=== PATIENT | female | born 1995 | race Caucasian/White ===

== ENCOUNTER 2025-08-24 16:44 | Inpatient (IN) ==
[2025-08-24 17:51] LABS: Appearance Urine Clear (Clear); Bacteria Urine Automated 1+ (None Seen); Cast Urine Automated 0-2 /lpf (0-2); Glucose Urine UA 2+ (Negative)
--- NOTE | 2025-08-24 18:11 | Emergency Department Note ---
History of Present Illness General Chief complaint: Mental Health Evaluation Stated complaint: [facility] Time Seen by Provider: 08/24/25 16:52 Source: patient Mode of arrival: ambulatory Limitations: no limitations History of Present Illness Patient is a 29-year-old female who was sent over at the request of her psychiatrist for suicidal ideations. She has recently had thoughts of SI with plans to overdose. She denies intentional overdose today. She did cut herself with a ammonia box operator to her left arm today as well. Lacerations are superficial and bleeding has stopped prior to arrival. She denies any prior SI attempt in the past. No reported HI. No auditory visual hallucinations. Denies any drug or alcohol use in the past 24 hours. No other medical complaints at this time. Home Medications Medication Instructions Recorded Confirmed Type Basaglar KwikPen U-100 Insulin 19 unit SC HS 08/24/25 08/24/25 History Dexilant 60 mg PO DAILY 08/24/25 08/24/25 History Dupixent Pen 300 mg SC WK 08/24/25 08/24/25 History Effexor 100 mg PO DAILY 08/24/25 08/24/25 History Remeron 15 mg PO HS 08/24/25 08/24/25 History Vitamin D3 3,000 units PO DAILY 08/24/25 08/24/25 History albuterol 90 mcg/actuation aerosol 90 mcg inhalation DIRECTED 08/24/25 08/24/25 History inhaler cariprazine 3 mg capsule (Vraylar) 3 mg PO DAILY 08/24/25 08/24/25 History clonazepam 1 mg tablet 1 mg PO BID 08/24/25 08/24/25 History ferrous fumarate 55 mg (18 mg 45 mg PO HS 08/24/25 08/24/25 History iron) tablet,extended release montelukast 10 mg tablet 10 mg PO HS 08/24/25 08/24/25 History (Singulair) ondansetron HCl 8 mg tablet 8 mg PO Q8H PRN nausea 08/24/25 08/24/25 History oxybutynin chloride 5 mg 5 mg PO DAILY 08/24/25 08/24/25 History tablet,extended release 24 hr prochlorperazine maleate 10 mg 10 mg PO Q8H PRN Nausea 08/24/25 08/24/25 History tablet (Compazine) Past Med/Surg History Problem List (Updated 08/24/25 @ 19:30 by Karri Mckeon MD) Suicidal ideations (Acute) Social History Smoking Status: Current every day smoker Tobacco Type: E-cigarettes / Vaping Preferred Language: Slovak Feels Safe at Home: Yes Gender Identity: Female Review of Systems Review of systems negative outside of positive findings mentioned in HPI. Physical Exam Vital Signs Vital Signs - 24 hr 08/24/25 16:47 Temperature 36.6 C Temperature Source Skin Pulse Rate 108 H Respiratory Rate 20 Blood Pressure 136/85 Blood Pressure Mean 102 Pulse Oximetry 97 Oxygen Delivery Method Room Air Sepsis Recent Fever Within 48 Hours No Sepsis New/Unexplained Change in Mental Status N/A Sepsis Action Taken by Nursing No Action Required See below Constitutional WD/WN, vitals as above Eyes PERRL, conjunctivae normal, anicteric sclerae ENMT external ear and nose normal, oropharynx normal Respiratory normal respiratory effort, lungs clear to auscultation Cardiovascular RRR, no murmur, no edema Gastrointestinal (Abdomen) normal bowel sounds, soft, nontender, no hepatosplenomegaly Psychiatric Orientation: alert and oriented x 3 Eye Contact: + fair eye contact Speech: speech normal rate, rhythm, volume Affect: + depressed affect Mood: + depressed mood Thought Process: linear, logical thought process Homicidal Thoughts: denies suicidal thoughts Hallucinations: no auditory hallucinations and no visual hallucinations Insight: good insight Judgment: good judgement Medical Decision Making Differential Diagnosis DDx includes but not limited to: MDD, bipolar disorder, dysthymia, PTSD, severe FAINA, schizophrenia, schizoaffective disorder, BPD, electrolyte abnormality, hypothyroidism Laboratory Data 08/24/25 17:25 08/24/25 17:25 Lab Results 08/24/25 08/24/25 08/24/25 Range/Units 17: 17:30 Unknown WBC 13.93 H (4.8-10.8) K/ul RBC 5.43 H (4.20-5.40) M/uL Hgb 15.2 (12.0-16.0) g/dL Hct 43.4 (37.0-47.0) % MCV 79.9 L (80.0-100.0) fL MCH 28.0 (25.0-34.0) pg MCHC 35.0 (32.0-36.0) g/dL RDW Std Deviation 36.5 (36.4-46.3) fL RDW Coeff of David 13.0 (11.5-14.5) % Plt Count 370 (130-400) K/uL MPV 9.5 (9.4-12.4) fL Immature Gran % (Auto) 0.6 % Neut % (Auto) 65.4 % Lymph % (Auto) 25.3 % Moca % (Auto) 4.6 % Eos % (Auto) 3.6 % Baso % (Auto) 0.5 % Neut # (Auto) 9.11 H (1.40-6.50) K/uL Lymph # (Auto) 3.53 H (1.20-3.40) K/uL Moca # (Auto) 0.64 H (0.11-0.59) K/uL Eos # (Auto) 0.50 (0.00-0.50) K/uL Baso # (Auto) 0.07 (0.00-0.20) K/uL Immature Gran # (Auto) 0.08 (0.01-0.20) K/uL Sodium 136 (136-145) mmol/L Potassium 3.5 (3.5-5.1) mmol/L Chloride 103 (98-107) mmol/L Carbon Dioxide 22 (21-32) mmol/L Anion Gap 11 (3-11) BUN 9 (6-23) mg/dl Creatinine 0.50 L (0.6-1.2) mg/dl Est Cr Clr Drug Dosing 167.7 ml/min eGFR 130.12 BUN/Creatinine Ratio 18.0 (10-20) Glucose 225 H (70-99(Fasting)) mg/dl Calcium 9.3 (8.6-10.3) mg/dl Total Bilirubin 0.7 (0.2-1.0) mg/dl AST 25 (13-39) U/L ALT 20 (7-52) U/L Alkaline Phosphatase 170 H (34-104) U/L Total Protein 7.4 (6.0-8.3) gm/dl Albumin 4.5 (3.4-5.0) gm/dl Globulin 2.9 (2.5-4.0) gm/dl Albumin/Globulin Ratio 1.6 (0.9-2) TSH 1.807 (0.300-4.500) uIu/ml HCG, Qual Negative (Negative) Urine Color Yellow Urine Appearance Clear (Clear) Urine pH 6.5 (4.5-7.5) Ur Specific [place] 1.010 (1.000-1.030) Urine Protein Negative (Negative) Urine Glucose (UA) 2+ H (Negative) Urine Ketones Trace H (Negative) Urine Blood 3+ H (Negative) Urine Nitrite Negative (Negative) Urine Bilirubin Negative (Negative) Urine Urobilinogen Negative (Negative) Ur Leukocyte Esterase Trace H (Negative) Urine WBC (Auto) 6-10 H (0-5) /hpf Urine RBC (Auto) 6-10 H (0-2) /hpf U Hyaline Cast (Auto) 0-2 (0-2) /lpf U Epithel Cells (Auto) 3-5 H (0-2) /hpf Urine Bacteria (Auto) 1+ H (None Seen) Urine Mucus Present A (None Prsent) Urine Yeast Present A (None Prsent) Urine Comment Salicylates < 3.0 L (3.0-30) mg/dl Urine Opiates Screen Neg (Neg) Ur Methadone, Qual Neg (Neg) Urine Fentanyl Screen Neg (Neg) Acetaminophen < 3 L (10-30) ug/ml Urine Barbiturates Neg (Neg) Ur Phencyclidine (PCP) Neg (Neg) U Amphetamin/Meth Scrn Neg (Neg) MDMA (Ecstasy) Screen Neg (Neg) U Benzodiazepines Scrn Neg (Neg) Ur Cocaine Metabolite Neg (Neg) U Marijuana (THC) Screen Neg (Neg) Ethyl Alcohol mg/dL < 10.0 (<10.0) mg/dl SARS-CoV-2, RNA, NAAT NEGATIVE (NEGATIVE) MDM Narrative Patient is a 29-year-old female presents for suicidal ideations with plan for overdose. Hemodynamically stable on arrival. She is cooperative and appropriate on my examination. No active psychosis or intoxication noted. Patient is willing to sign in voluntarily under a 201 for inpatient psychiatric management. I reviewed her lab work. Mild leukocytosis noted. No fever or obvious source of infection. No indication for antibiotics at this time. No signs of sepsis or metabolic abnormality. TSH within normal limits. Mild hyperglycemia without evidence of DKA or HHS. I did review her urinalysis. She does have 1+ bacteria with 6-10 white blood cells. No clinical signs or symptoms of UTI. She does report she is on her menstrual cycle which is evident by red blood cells in her urine. She also has a small amount of yeast noted on her urinalysis but denies any symptoms of candidiasis. Will hold on any treatment at this time. Patient was accepted by [facility] here today and it is medically clear for psychiatric admission. Impression & Plan Suicidal ideations Discharge Plan Visit Data Chief Complaint: Mental Health Evaluation Stated Complaint: [facility] ED Provider: Karri Mckeon Discharge Problem: Suicidal ideations Patient Disposition: Admitted As Inpatient Condition: Good Forms Stand Alone Forms: My [facility], Suicide Prevention Resources Prescriptions Prescriptions: No Action clonazepam 1 mg Tablet 1 mg PO BID oxybutynin chloride 5 mg Tablet Extended Release 24hr 5 mg PO DAILY montelukast [Singulair] 10 mg Tablet 10 mg PO HS Vraylar 3 mg Capsule 3 mg PO DAILY Basaglar KwikPen U-100 Insulin 19 unit SC HS Dexilant 60 mg PO DAILY Dupixent Pen 300 mg SC WK Rx Instructions: Q 2 weeks Effexor 100 mg PO DAILY Remeron 15 mg PO HS Vitamin D3 3,000 units PO DAILY ferrous fumarate 55 mg (18 mg iron) Tablet Extended Release 45 mg PO HS Ventolin 90 mcg/actuation Aerosol 90 mcg INHALATION DIRECTED Rx Instructions: Q 4 hours 2 puffs prochlorperazine maleate [Compazine] 10 mg Tablet 10 mg PO Q8H PRN (Reason: Nausea) ondansetron HCl [Zofran] 8 mg Tablet 8 mg PO Q8H PRN (Reason: nausea) Referrals Referrals: Carmen Martinez [Primary Care Provider] -
[2025-08-24 18:15] LABS: Amphetamines+Metham, Urine Neg (Neg); MDMA (Ecstacy), Urine Neg (Neg); Marijuana, Urine Neg (Neg)
[2025-08-24 18:40] LABS: Hematocrit (blood only) 43.4 % (37.0-47.0); Hemoglobin 15.2 g/dL (12.0-16.0); Immature Granulocytes # (auto) 0.08 K/uL (0.01-0.20); Immature Granulocytes % (auto) 0.6 %; Mean Corpuscular Hemoglobin 28.0 pg (25.0-34.0); Mean Corpuscular Volume 79.9 fL (80.0-100.0); Platelet Count 370 K/uL (130-400); RDW Standard Deviation 36.5 fL (36.4-46.3); Red Blood Count 5.43 M/uL (4.20-5.40); White Blood Count 13.93 K/ul (4.8-10.8)
[2025-08-24 18:54] LABS: Acetaminophen < 3 ug/ml (10-30); Salicylate < 3.0 mg/dl (3.0-30)
[2025-08-24 18:59] LABS: Alanine Aminotransferase 20.0 U/L (7-52); Albumin Globulin Ratio 1.6 (0.9-2); Albumin Level 4.5 gm/dl (3.4-5.0); Alkaline Phosphatase 170.0 U/L (34-104); Anion Gap 11.0 (3-11); Bilirubin,Total 0.7 mg/dl (0.2-1.0); Blood Urea Nitrogen 9.0 mg/dl (6-23); Calcium 9.3 mg/dl (8.6-10.3); Carbon Dioxide 22.0 mmol/L (21-32); Chloride 103.0 mmol/L (98-107); Creatinine Clr Calc Pharmacy 167.7 ml/min; Globulin 2.9 gm/dl (2.5-4.0); Glucose 225.0 mg/dl (70-99(Fasting)); Potassium 3.5 mmol/L (3.5-5.1); Sodium 136.0 mmol/L (136-145); Total Protein 7.4 gm/dl (6.0-8.3)
[2025-08-24 19:07] LABS: Pregnancy Test, Serum Negative (Negative)
[2025-08-24 19:13] LABS: Thyroid Stimulating Hormone 1.807 uIu/ml (0.300-4.500)
[2025-08-24] MEDS ORDERED: SODIUM CHLORIDE 0.65% NA SOLN 45 ML (OCEAN) PRN (20:49)
[2025-08-24] MEDS ORDERED: ALUMINUM/MAGNESIUM SUSP 30 ML UDC PO PRN (20:49)
[2025-08-24] MEDS ORDERED: BISMUTH SUBSALICYLATE 262 MG CHEW PO PRN (20:49)
[2025-08-24] MEDS ORDERED: MAGNESIUM HYDROXIDE SUSP 30 ML UDC PO PRN (20:49)
[2025-08-24] MEDS ORDERED: clonazePAM 1 MG TAB PO PRN (20:51)
[2025-08-24] MEDS ORDERED: GLUCOSE 40% GEL 15 GM TUBE PO PRN (21:15)
[2025-08-24] MEDS ORDERED: GLUCAGON FOR INJ 1 MG VIAL SQ PRN (21:15)
[2025-08-24] MEDS ORDERED: GLUCOSE 10 TAB/TUBE PO PRN (21:15)
[2025-08-24] MEDS ORDERED: DEXTROSE 50% 50 ML SYRINGE IV PRN (21:15)
[2025-08-24] MEDS ORDERED: CARBOHYDRATES FOR HYPOGLYCEMIA PO PRN (21:15)
[2025-08-24] MEDS ORDERED: NICOTINE POLACRILEX 2 MG GUM MT PRN (21:37)
[2025-08-24] MEDS ORDERED: ALBUTEROL HFA 8 GM INHALER INH PRN (21:41)
[2025-08-24] MEDS: MIRTAZAPINE TAB 15 MG TAB PO SCH (21:44)
[2025-08-24] MEDS: LANTUS PER UNIT CHARGE SQ SCH (21:44)
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
[2025-08-25] MEDS: NICOTINE 14 MG/24 HR PATCH TD SCH (09:44)
[2025-08-25] MEDS: REMOVE NICODERM PATCH SCH ×2 (09:45→21:40)
[2025-08-25] MEDS: CETIRIZINE HCL 10 MG TABLET PO SCH (11:56)
[2025-08-25] MEDS: OXYBUTYNIN CHLORIDE XL 5 MG TABCR PO SCH (11:56)
[2025-08-25] MEDS: CHOLECALCIFEROL 25 MCG (1000 UNITS) TAB PO SCH (11:56)
[2025-08-25] MEDS: VENLAFAXINE HCL XR 150 MG CAPXR PO SCH (12:20)
[2025-08-25] MEDS: LURASIDONE HCL 20 MG TAB PO SCH (17:34)
[2025-08-25] MEDS: MONTELUKAST SODIUM 10 MG TABLET PO SCH (21:37)
[2025-08-25] MEDS ORDERED: NON-FORMULARY MEDICATION (Ferrous Fumarate 55 mg (18 mg iron) Tablet Extended Release) PO SCH (22:00)
[2025-08-26 08:11] LABS: Hemoglobin A1C 8.7 % (4.5-5.6)
[2025-08-26 08:20] LABS: Cholesterol 185.0 mg/dl (0-200); HDL Cholesterol 34.0 mg/dl; Triglycerides 277.0 mg/dl (0-150)
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
[2025-08-27] MEDS: CHOLECALCIFEROL 25 MCG (1000 UNITS) TAB PO SCH (08:51)
[2025-08-27] MEDS: clonazePAM 1 MG TAB PO PRN (09:13)
[2025-08-27] MEDS: PROPRANOLOL HCL 10 MG TAB PO SCH (14:24)
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
[2025-08-27] MEDS: LANTUS PER UNIT CHARGE SQ SCH (21:46)
--- NOTE | 2025-08-27 23:20 | Pharmacy Report ---
Pharmacy Glycemic Short Note 2 - Date of Service August 27, 2025 - Glycemic Short BSG Results (Last 24 hours): 08/27/25 08/27/25 08/27/25 08:32 12:34 17:02 POC Glucose 171 H 232 H 160 H 08/27/25 20:14 POC Glucose 290 H OUTPATIENT ANTIDIABETIC REGIMEN: * Lantus 19 units HS * HbA1c 8.7% (08/26/25) ASSESSMENT: * Jennifer is a 29 year old female admitted with suicidal ideations and a history of insulin dependent diabetes mellitus (unclear if type 1 or type 2). Pharmacy has been consulted for glycemic management while inpatient. * All BSGs above goal in last 24 hours. Basal insulin increased this evening per MD and CDE recommendations, will continue and add correctional only NovoLog at this time to better assess true basal need. PLAN FOR INPATIENT GLYCEMIC CONTROL: * Hold outpatient oral diabetes medications * Basal insulin * Lantus 21 units SQ HS * Bolus insulin * NovoLog per scale ACHS or Q6hrs while NPO * Goal Range: Low 120 mg/dL - High 160 mg/dL * Correction Factor: 25 mg/dL/unit * Nutritional / Prandial insulin per carb ratio of 1 unit per NONE grams CHO consumed
[2025-08-28] MEDS: INSULIN ASPART PER UNIT CHARGE SC SCH (09:05)
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
[2025-08-28] MEDS: LANTUS PER UNIT CHARGE SQ SCH (21:37)
[2025-08-28] MEDS ORDERED: PHARMACY GLYCEMIC MGMT CONSULT PRN (21:40)
[2025-08-29] MEDS: ACETAMINOPHEN 325 MG TAB PO PRN (08:38)
--- NOTE | 2025-08-29 12:46 | Pharmacy Report ---
Pharmacy Glycemic Short Note 2 - Date of Service August 29, 2025 - Glycemic Short BSG Results (Last 24 hours): 08/28/25 08/28/25 08/29/25 17:08 21:12 08:34 POC Glucose 122 H 132 H 154 H 08/29/25 12:32 POC Glucose 179 H OUTPATIENT ANTIDIABETIC REGIMEN: * Lantus 19 units HS HbA1c: 8.7% (08/26/25) ASSESSMENT: 08/29/25: * Blood sugars have been reasonably controlled with some mild elevations >180 mg/dL * Do not anticipate any major changes to current glycemic regimen 08/27/25: * Jennifer is a 29 year old female admitted with suicidal ideations and a history of insulin dependent diabetes mellitus (type 2 DM). Pharmacy has been consulted for glycemic management while inpatient. * All BSGs above goal in last 24 hours. Basal insulin increased this evening per MD and CDE recommendations, will continue and add correctional only NovoLog at this time to better assess true basal need. PLAN FOR INPATIENT GLYCEMIC CONTROL: * Basal insulin * Lantus 15-18-21 units SC HS (see EHR for details) * Bolus insulin * NovoLog per scale ACHS or Q6hrs while NPO * Goal Range: Low 120 mg/dL - High 160 mg/dL * Correction Factor: 30 mg/dL/unit * Nutritional / Prandial insulin per carb ratio of 1 unit per 8 grams CHO consumed
--- NOTE | 2025-08-29 13:08 | Psychiatric Progress Note ---
Date of Service August 29, 2025 Impression / Recommendations Impression SABRINA GUZMAN is a 29-year-old woman who currently lives in [place] alone with her cats, has a history of depression, anxiety and PTSD, and was admitted on 08/24/25 19:40 on a 201 voluntary commitment for SI with plan to overdose on her medications. Diagnostically consistent with major depressive disorder, post traumatic stress disorder, generalized anxiety disorder with panic attacks and insomnia. No history of hypomania but family history of bipolar disorder and poor response to antidepressant monotherapy in the past though has never had full trial of effective dose of an SNRI. A: Patient is tolerating the medications well with improved sleep. Continues to have anxious ruminations and negative self-talk. Concern for longstanding poor self-esteem and emotional guilt. Today we discussed common automatic negative thoughts she experiences, anxiety triggers. Practiced mindfulness meditation with the patient. Overall, I spent a total of 40 minutes with this case including review of chart records, nursing report, review of lab work, direct evaluation of the patient at bedside, counseling the patient, multidisciplinary team meeting, orders, and documentation in the electronic health record. (1) Suicidal ideations: (2) Insomnia: (3) MDD (major depressive disorder), recurrent episode, severe: (4) Post traumatic stress disorder (PTSD): (5) Generalized anxiety disorder with panic attacks: Plan 08/29/2025: Continue medications and treatment plan 08/28/2025: Continue medications and treatment plan 08/27/2025: Start propranolol 10 mg 3 times daily 08/26/2025: Increase vitamin D to 125 mcg daily. 08/25/2025: The patient was admitted to the [facility] ([facility] mental health unit) on q15 min checks (behavioral with suicide precautions) for safety. The patient will participate in group, recreational, and milieu therapies and will be offered additional individual and family sessions as clinically appropriate. -Medications: * Change from venlafaxine 100mg daily to venlafaxine ER 150mg daily * Start Latuda 20mg daily with dinner * Start clonidine 0.1mg HS * Continue mirtazapine 15mg HS * Discontinue prazosin * Discontinue Vraylar -Symptom questionnaires provided -Labwork for tomorrow AM: * Fasting lipid panel * HbA1c * Vit D Inventory Assets Strengths: supportive relationships, willing to get treatment Needs: safety and stabilization, medication adjustment, additional coping skills, increased outpatient services Suicide Risk Level Suicide Risk Level: High-Moderate (q15 min suicide checks) (Si with plan and dep ression but feels safe in the hospital and feels able to ask for support ) Suicide Risk Level Comments: Risk Factors Assessment Male: No : Yes Do You Have Access To A Gun?: No Health Problems: Yes (asthma) Mental Health Diagnoses: Yes Substance Use Disorders: No Previous Attempt: No Family History of Suicide: Yes Previous Psychiatric Hospitalization: Yes Hopelessness: Yes Protective Factors Assessment Employed: Yes Stable Relationships: Yes Supportive Family: Yes Good Rapport with Provider: Yes Interval History Identifying Information SABRINA GUZMAN is a 29-year-old woman who currently lives in [place] alone with her cats, has a history of depression, anxiety and PTSD, and was admitted on 08/24/25 19:40 on a 201 voluntary commitment for SI with plan to overdose on her medications. Chief Complaint Anxiety, hypervigilance Review of Systems Sleep Information Total Hours of Sleep: 8 Meal Information Percent Meal Consumed - Breakfast: 80 Percent Meal Consumed - Lunch: 75 Percent Meal Consumed - Dinner: 75 Subjective Subjective Patient was seen & assessed and interval progress reviewed with treatment team nursing and social work Patient continues to have anxious ruminations. Attending groups. Engaging in self-care. Reports sleeping well. Having a headache and has history of migraines. We discussed automatic negative thoughts and she reports often personalizing situations and emotional reasoning. She recounts a time at work where her mother was upset about something else but she immediately felt responsible for her being upset. Often times has transient feelings and bel ieves there is a factual basis. Reports feeling guilty for setting boundaries as she often felt that it is not her place to say no to her family. Recounts memory from the past where her father promised to pick her up from different activities and never did and eventually she got frustrated and said no; this led to her father not talking to her for months and she feels guilty. Often times her mother would berate her with questions when she did not feel ready to talk about what was bothering her and her mother would often personalize issues the patient was having. We identified recent anxiety triggers including being in a dormitory style unit, speaking to her father, and her mother visiting. Reports being on Latuda 20 mg through samples from her past psychiatrist and it was effective; went up to 40 mg for a few weeks. Physical Exam Mental Examination Appearance: Unkempt Eye Contact: Maintains Eye Contact Motor Behavior: Unremarkable Speech: Normal and Soft Mood: Calm and Sad Affect: Flat Thought Process: Intact Thought Content: Racing Hallucinations: None Insight: Good Judgement: Good Vital Signs (Past 24 Hours) Last Vital Signs Temp 36.2 C L 08/29/25 06:22 Pulse 79 08/29/25 08:37 Resp 18 08/29/25 08:37 BP 109/77 08/29/25 08:37 Pulse Ox 96 08/28/25 06:00 O2 Del Method Room Air 08/28/25 06:00 Results & Data ([facility]) Laboratory Results Laboratory Results - last 24 hr 08/28/25 08/28/25 08/29/25 17:08 21:12 08:34 POC Glucose 122 H 132 H 154 H 08/29/25 12:32 POC Glucose 179 H Current Inpatient Medications Current Inpatient Medications: Current Inpatient Medications Acetaminophen (Acetaminophen 325 Mg Tab) 650 mg PO Q4H PRN PRN Reason: Headache or Minor Fever Stop: 09/23/25 20:48 Last Admin: 08/29/25 08:38 Dose: 650 mg Al Hydrox/Mg Hydrox/Simethicone (Aluminum/Magnesium Susp 30 Ml Udc) 30 ml PO Q4H PRN PRN Reason: GI Upset Stop: 09/23/25 20:48 Albuterol (Albuterol Hfa 8 Gm Inhaler) 2 puffs INH Q6 PRN PRN Reason: asthma Stop: 09/23/25 21:40 Bismuth Subsalicylate (Bismuth Subsalicylate 262 Mg Chew) 2 tab PO Q30M PRN PRN Reason: Loose Stool/Diarrhea Stop: 09/23/25 20:48 Cetirizine HCl (Cetirizine Hcl 10 Mg Tablet) 10 mg PO BID [facility] Stop: 09/24/25 11:29 Last Admin: 08/29/25 08:41 Dose: 10 mg Clonazepam (Clonazepam 1 Mg Tab) 1 mg PO BID PRN PRN Reason: panic attacks Stop: 09/24/25 20:59 Last Admin: 08/28/25 17:11 Dose: 1 mg Clonidine HCl (Clonidine Hcl 0.1 Mg Tab) 0.1 mg PO HS [facility] Stop: 09/24/25 21:59 Last Admin: 08/28/25 21:25 Dose: 0.1 mg Dextrose (Dextrose 50% 50 Ml Syringe) 25 - 50 ml IV UD PRN; Protocol PRN Reason: Hypoglycemia Protocol Stop: 09/23/25 21:14 Glucagon (Glucagon For Inj 1 Mg Vial) 1 mg SQ UD PRN; Protocol PRN Reason: Hypoglycemia Protocol Stop: 09/23/25 21:14 Glucose (Glucose 40% Gel 15 Gm Tube) 15 - 30 gm PO UD PRN; Protocol PRN Reason: Hypoglycemia Protocol Stop: 09/23/25 21:14 Glucose (Glucose 10 Tab/Tube) 4 - 8 tab PO UD PRN; Protocol PRN Reason: Hypoglycemia Protocol Stop: 09/23/25 21:14 Hydroxyzine HCl (Hydroxyzine Hcl 25 Mg Tab) 50 mg PO HSZ PRN PRN Reason: Insomnia Stop: 09/23/25 20:48 Hydroxyzine HCl (Hydroxyzine Hcl 25 Mg Tab) 25 mg PO Q4H PRN PRN Reason: Anxiety Stop: 09/23/25 20:48 Insulin Aspart (Insulin Aspart Per Unit Charge) 0 units SC ACHS [facility] Stop: 09/27/25 07:59 Last Admin: 08/29/25 13:01 Dose: 5 units Insulin Glargine (Lantus Per Unit Charge) 0 units SQ HS CORINNE; Protocol Stop: 09/26/25 21:44 Last Admin: 08/28/25 21:37 Dose: 15 units Lurasidone HCl (Lurasidone Hcl 20 Mg Tab) 20 mg PO DAILYBD [facility] Stop: 09/24/25 17:14 Last Admin: 08/28/25 17:09 Dose: 20 mg Magnesium Hydroxide (Magnesium Hydroxide Susp 30 Ml Udc) 30 ml PO DAILY PRN PRN Reason: Constipation Stop: 09/23/25 20:48 Mirtazapine (Mirtazapine Tab 15 Mg Tab) 15 mg PO HS [facility] Stop: 09/23/25 21:59 Last Admin: 08/28/25 21:25 Dose: 15 mg Miscellaneous (Carbohydrates For Hypoglycemia ) 15 - 30 gm PO UD PRN PRN Reason: Hypoglycemia Treatment Stop: 09/23/25 21:14 Miscellaneous (Remove Nicoderm Patch) 1 each N/A DAILY@2100 [facility] Stop: 09/24/25 20:59 Last Admin: 08/28/25 21:43 Dose: 1 each Miscellaneous Information (Pharmacy Glycemic Mgmt Consult) 1 each N/A UD PRN; Protocol PRN Reason: Consult Stop: 09/27/25 21:39 Montelukast Sodium (Montelukast Sodium 10 Mg Tablet) 10 mg PO HS [facility] Stop: 09/24/25 21:59 Last Admin: 08/28/25 21:25 Dose: 10 mg Nicotine (Nicotine 14 Mg/24 Hr Patch) 1 patch TD QAM [facility] Stop: 09/24/25 08:59 Last Admin: 08/29/25 08:50 Dose: 1 patch Nicotine Polacrilex (Nicotine Polacrilex 2 Mg Gum) 2 piece MT PRN PRN PRN Reason: Nicotine Withdrawal Symptoms Stop: 09/23/25 21:36 Ondansetron HCl (Ondansetron 4 Mg Od Tab) 8 mg PO Q8H PRN PRN Reason: nausea Stop: 09/24/25 11:37 Oxybutynin Chloride (Oxybutynin Chloride Xl 5 Mg Tabcr) 5 mg PO DAILY [facility] Stop: 09/24/25 11:29 Last Admin: 08/29/25 08:43 Dose: 5 mg Pantoprazole Sodium (Pantoprazole 40 Mg Tab) 40 mg PO DAILY [facility] Stop: 09/24/25 11:44 Last Admin: 08/29/25 08:43 Dose: 40 mg Propranolol HCl (Propranolol Hcl 10 Mg Tab) 10 mg PO TID [facility] Stop: 09/26/25 13:59 Last Admin: 08/29/25 08:43 Dose: 10 mg Sodium Chloride (Sodium Chloride 0.65% Na Soln 45 Ml ([place])) 1 - 2 sprays NA PRN PRN PRN Reason: Nasal Dryness/Congestion Stop: 09/23/25 20:48 Venlafaxine HCl (Venlafaxine Hcl Xr 150 Mg Capxr) 150 mg PO QAM [facility] Stop: 09/24/25 11:59 Last Admin: 08/29/25 08:44 Dose: 150 mg Vitamin D (Cholecalciferol 25 Mcg (1000 Units) Tab) 125 mcg PO DAILY [facility] Stop: 09/26/25 08:59 Last Admin: 08/29/25 08:41 Dose: 125 mcg Mental Health & Subst Abuse Tx Psychiatrist Name of Psychiatrist: LEFTY Psychiatrist's Date Of Appointment With Psychiatric Provider: 08/31/25 Time of Appointment with Psychiatrist: markell Psychiatric Appointment Comment: In person appt Therapist Name of Therapist: Cecelia at [facility] Therapist's Date of Therapist Appointment: 09/02/25 Time of Therapist Appointment: Axel Lard Mixer Name of Lard Mixer: verónica Post Discharge Appointments Primary Care Physician Name Of Family Doctor/PCP: Carmen Martinez - [facility] Primary Care Provider Appointment Comment: Follow up as needed Contact Information Discharge Discharge Address: [address] [place] [address] [address] , [place] [id number]
[2025-08-29] MEDS: IBUPROFEN 200 MG TAB PO PRN (14:10)
[2025-08-29] MEDS: ONDANSETRON 4 MG OD TAB PO PRN (19:06)
--- NOTE | 2025-08-30 12:45 | Psychiatric Progress Note ---
Date of Service August 30, 2025 Impression / Recommendations Impression SABRINA GUZMAN is a 29-year-old woman who currently lives in [place] alone with her cats, has a history of depression, anxiety and PTSD, and was admitted on 08/24/25 19:40 on a 201 voluntary commitment for SI with plan to overdose on her medications. Diagnostically consistent with major depressive disorder, post traumatic stress disorder, generalized anxiety disorder with panic attacks and insomnia. No history of hypomania but family history of bipolar disorder and poor response to antidepressant monotherapy in the past though has never had full trial of effective dose of an SNRI. A: Patient presents improvement in PTSD related anxiety and sleep maintenance. Reduced negative self talk. Blood glucose levels stabilizing. Tolerating psychotropics well. Today we discussed coping skills and identifying triggers. Appears more future oriented. Encouraged intensive outpatient program and interested. Overall, I spent a total of 30 minutes with this case including review of chart records, nursing report, review of lab work, direct evaluation of the patient at bedside, counseling the patient, multidisciplinary team meeting, orders, and documentation in the electronic health record. (1) Suicidal ideations: (2) Insomnia: (3) MDD (major depressive disorder), recurrent episode, severe: (4) Post traumatic stress disorder (PTSD): (5) Generalized anxiety disorder with panic attacks: Plan 08/30/2025: Continue medications and treatment plan 08/29/2025: Continue medications and treatment plan 08/28/2025: Continue medications and treatment plan 08/27/2025: Start propranolol 10 mg 3 times daily 08/26/2025: Increase vitamin D to 125 mcg daily. 08/25/2025: The patient was admitted to the [facility] ([facility] mental health unit) on q15 min checks (behavioral with suicide precautions) for safety. The patient will participate in group, recreational, and milieu therapies and will be offered additional individual and family sessions as clinically appropriate. -Medications: * Change from venlafaxine 100mg daily to venlafaxine ER 150mg daily * Start Latuda 20mg daily with dinner * Start clonidine 0.1mg HS * Continue mirtazapine 15mg HS * Discontinue prazosin * Discontinue Vraylar -Symptom questionnaires provided -Labwork for tomorrow AM: * Fasting lipid panel * HbA1c * Vit D Inventory Assets Strengths: supportive relationships, willing to get treatment Needs: safety and stabilization, medication adjustment, additional coping skills, increased outpatient services Suicide Risk Level Suicide Risk Level: High-Moderate (q15 min suicide checks) (Si with plan and depression but feels safe in the hospital and feels able to ask for support ) Suicide Risk Level Comments: Risk Factors Assessment Male: No : Yes Do You Have Access To A Gun?: No Health Problems: Yes (asthma) Mental Health Diagnoses: Yes Substance Use Disorders: No Previous Attempt: No Family History of Suicide: Yes Previous Psychiatric Hospitalization: Yes Hopelessness: Yes Protective Factors Assessment Employed: Yes Stable Relationships: Yes Supportive Family: Yes Good Rapport with Provider: Yes Interval History Identifying Information SABRINA GUZMAN is a 29-year-old woman who currently lives in [place] alone with her cats, has a history of depression, anxiety and PTSD, and was admitted on 08/24/25 19:40 on a 201 voluntary commitment for SI with plan to overdose on her medications. Chief Complaint Anxiety, nightmares Review of Systems Sleep Information Total Hours of Sleep: 6.5 Meal Information Percent Meal Consumed - Breakfast: 100 Percent Meal Consumed - Lunch: 75 Percent Meal Consumed - Dinner: 100 Subjective Subjective Patient was seen & assessed and interval progress reviewed with treatment team nursing and social work Overnight slept 6.5 hours. Father did not show up for the support meeting. Patient feels abandoned but says that this was expected. Reports having a few awakenings at night with distressing dreams that woke her up and "panic and sweats" however she was able to go back to sleep faster than before. Has been engaging in mindfulness meditation and feels calmer afterwards. Updated about health status and future recommendations for PCP. Reports physical symptoms of anxiety are controlled. Physical Exam Mental Examination Appearance: Unkempt Eye Contact: Maintains Eye Contact Motor Behavior: Unremarkable Speech: Normal and Soft Mood: Calm and Sad Affect: Constricted Thought Process: Intact Thought Content: Racing Hallucinations: None Insight: Good Judgement: Good Vital Signs (Past 24 Hours) Last Vital Signs Temp 37.0 C 08/30/25 06:27 Pulse 88 08/30/25 06:27 Resp 18 08/30/25 06:27 BP 110/76 08/30/25 06:27 Pulse Ox 98 08/30/25 06:27 O2 Del Method Room Air 08/30/25 06:27 Results & Data ([facility]) Laboratory Results Laboratory Results - last 24 hr 11/30/25 11/30/25 12/01/25 17:02 20:34 08:44 POC Glucose 128 H 163 H 137 H 08/30/25 12:34 POC Glucose 205 H Current Inpatient Medications Current Inpatient Medications: Current Inpatient Medications Acetaminophen (Acetaminophen 325 Mg Tab) 650 mg PO Q4H PRN PRN Reason: Headache or Minor Fever Stop: 09/23/25 20:48 Last Admin: 08/29/25 08:38 Dose: 650 mg Al Hydrox/Mg Hydrox/Simethicone (Aluminum/Magnesium Susp 30 Ml Udc) 30 ml PO Q4H PRN PRN Reason: GI Upset Stop: 09/23/25 20:48 Albuterol (Albuterol Hfa 8 Gm Inhaler) 2 puffs INH Q6 PRN PRN Reason: asthma Stop: 09/23/25 21:40 Bismuth Subsalicylate (Bismuth Subsalicylate 262 Mg Chew) 2 tab PO Q30M PRN PRN Reason: Loose Stool/Diarrhea Stop: 09/23/25 20:48 Cetirizine HCl (Cetirizine Hcl 10 Mg Tablet) 10 mg PO BID [facility]IN[facility] Stop: 09/24/25 11:29 Last Admin: 08/30/25 08:51 Dose: 10 mg Clonazepam (Clonazepam 1 Mg Tab) 1 mg PO BID PRN PRN Reason: panic attacks Stop: 09/24/25 20:59 Last Admin: 08/28/25 17:11 Dose: 1 mg Clonidine HCl (Clonidine Hcl 0.1 Mg Tab) 0.1 mg PO HS CORINNE Stop: 09/24/25 21:59 Last Admin: 08/29/25 22:07 Dose: 0.1 mg Dextrose (Dextrose 50% 50 Ml Syringe) 25 - 50 ml IV UD PRN; Protocol PRN Reason: Hypoglycemia Protocol Stop: 09/23/25 21:14 Glucagon (Glucagon For Inj 1 Mg Vial) 1 mg SQ UD PRN; Protocol PRN Reason: Hypoglycemia Protocol Stop: 09/23/25 21:14 Glucose (Glucose 40% Gel 15 Gm Tube) 15 - 30 gm PO UD PRN; Protocol PRN Reason: Hypoglycemia Protocol Stop: 09/23/25 21:14 Glucose (Glucose 10 Tab/Tube) 4 - 8 tab PO UD PRN; Protocol PRN Reason: Hypoglycemia Protocol Stop: 09/23/25 21:14 Hydroxyzine HCl (Hydroxyzine Hcl 25 Mg Tab) 50 mg PO HSZ PRN PRN Reason: Insomnia Stop: 09/23/25 20:48 Hydroxyzine HCl (Hydroxyzine Hcl 25 Mg Tab) 25 mg PO Q4H PRN PRN Reason: Anxiety Stop: 09/23/25 20:48 Ibuprofen (Ibuprofen 200 Mg Tab) 400 mg PO Q8H PRN PRN Reason: Migraine Headache Stop: 09/28/25 13:44 Last Admin: 08/29/25 14:10 Dose: 400 mg Insulin Aspart (Insulin Aspart Per Unit Charge) 0 units SC ACHS [facility] Stop: 09/27/25 07:59 Last Admin: 08/30/25 09:14 Dose: 6 units Insulin Glargine (Lantus Per Unit Charge) 19 units SQ HS [facility] Stop: 09/26/25 21:44 Lurasidone HCl (Lurasidone Hcl 20 Mg Tab) 20 mg PO DAILYBD [facility] Stop: 09/24/25 17:14 Last Admin: 08/29/25 17:04 Dose: 20 mg Magnesium Hydroxide (Magnesium Hydroxide Susp 30 Ml Udc) 30 ml PO DAILY PRN PRN Reason: Constipation Stop: 09/23/25 20:48 Mirtazapine (Mirtazapine Tab 15 Mg Tab) 15 mg PO HS [facility] Stop: 09/23/25 21:59 Last Admin: 08/29/25 22:07 Dose: 15 mg Miscellaneous (Carbohydrates For Hypoglycemia ) 15 - 30 gm PO UD PRN PRN Reason: Hypoglycemia Treatment Stop: 09/23/25 21:14 Miscellaneous (Remove Nicoderm Patch) 1 each N/A DAILY@2100 [facility] Stop: 09/24/25 20:59 Last Admin: 08/29/25 22:17 Dose: 1 each Miscellaneous Information (Pharmacy Glycemic Mgmt Consult) 1 each N/A UD PRN; Protocol PRN Reason: Consult Stop: 09/27/25 21:39 Montelukast Sodium (Montelukast Sodium 10 Mg Tablet) 10 mg PO HS [facility] Stop: 09/24/25 21:59 Last Admin: 08/29/25 22:08 Dose: 10 mg Nicotine (Nicotine 14 Mg/24 Hr Patch) 1 patch TD QAM [facility] Stop: 09/24/25 08:59 Last Admin: 08/30/25 08:51 Dose: 1 patch Nicotine Polacrilex (Nicotine Polacrilex 2 Mg Gum) 2 piece MT PRN PRN PRN Reason: Nicotine Withdrawal Symptoms Stop: 09/23/25 21:36 Ondansetron HCl (Ondansetron 4 Mg Od Tab) 8 mg PO Q8H PRN PRN Reason: nausea Stop: 09/24/25 11:37 Last Admin: 08/29/25 19:06 Dose: 8 mg Oxybutynin Chloride (Oxybutynin Chloride Xl 5 Mg Tabcr) 5 mg PO DAILY [facility] Stop: 09/24/25 11:29 Last Admin: 08/30/25 08:51 Dose: 5 mg Pantoprazole Sodium (Pantoprazole 40 Mg Tab) 40 mg PO DAILY [facility] Stop: 09/24/25 11:44 Last Admin: 08/30/25 08:51 Dose: 40 mg Propranolol HCl (Propranolol Hcl 10 Mg Tab) 10 mg PO TID [facility] Stop: 09/26/25 13:59 Last Admin: 08/30/25 08:51 Dose: 10 mg Sodium Chloride (Sodium Chloride 0.65% Na Soln 45 Ml ([place])) 1 - 2 sprays NA PRN PRN PRN Reason: Nasal Dryness/Congestion Stop: 09/23/25 20:48 Venlafaxine HCl (Venlafaxine Hcl Xr 150 Mg Capxr) 150 mg PO QAM [facility] Stop: 09/24/25 11:59 Last Admin: 08/30/25 08:51 Dose: 150 mg Vitamin D (Cholecalciferol 25 Mcg (1000 Units) Tab) 125 mcg PO DAILY [facility] Stop: 09/26/25 08:59 Last Admin: 08/30/25 08:50 Dose: 125 mcg Mental Health & Subst Abuse Tx Psychiatrist Name of Psychiatrist: LEFTY Psychiatrist's Date Of Appointment With Psychiatric Provider: 08/31/25 Time of Appointment with Psychiatrist: markell Psychiatric Appointment Comment: In person appt Therapist Name of Therapist: Cecelia douglas [facility] Therapist's Date of Therapist Appointment: 09/02/25 Time of Therapist Appointment: Noon Tip Length Checker Name of Tip Length Checker: na Post Discharge Appointments Primary Care Physician Name Of Family Doctor/PCP: Carmen Martinez - [facility] Primary Care Provider Appointment Comment: Follow up as needed Contact Information Discharge Discharge Address: [facility], [place] [address]
[2025-08-30] MEDS: LANTUS PER UNIT CHARGE SQ SCH (21:45)
--- NOTE | 2025-08-31 12:42 | Psychiatric Progress Note ---
Date of Service August 31, 2025 Impression / Recommendations Impression SABRINA GUZMAN is a 29-year-old woman who currently lives in [place] alone with her cats, has a history of depression, anxiety and PTSD, and was admitted on 08/24/25 19:40 on a 201 voluntary commitment for SI with plan to overdose on her medications. Diagnostically consistent with major depressive disorder, post traumatic stress disorder, generalized anxiety disorder with panic attacks and insomnia. No history of hypomania but family history of bipolar disorder and poor response to antidepressant monotherapy in the past though has never had full trial of effective dose of an SNRI. A: Patient's sleep is improved and appears less anxious with a brighter and more reactive affect. Presents a rational future plan and denies current SI. Upcoming family meeting today. Tolerating medications well. Discussed PTSD treatment strategies. Has been engaging in groups and processing. Overall, I spent a total of 20 minutes with this case including review of chart records, nursing report, review of lab work, direct evaluation of the patient at bedside, counseling the patient, multidisciplinary team meeting, orders, and documentation in the electronic health record. (1) Suicidal ideations: (2) Insomnia: (3) MDD (major depressive disorder), recurrent episode, severe: (4) Post traumatic stress disorder (PTSD): (5) Generalized anxiety disorder with panic attacks: Plan 08/31/2025: Continue medications and treatment plan 08/30/2025: Continue medications and treatment plan 08/29/2025: Continue medications and treatment plan 08/28/2025: Continue medications and treatment plan 08/27/2025: Start propranolol 10 mg 3 times daily 08/26/2025: Increase vitamin D to 125 mcg daily. 08/25/2025: The patient was admitted to the [facility] ([facility] mental health unit) on q15 min checks (behavioral with suicide precautions) for safety. The patient will participate in group, recreational, and milieu therapies and will be offered additional individual and family sessions as clinically appropriate. -Medications: * Change from venlafaxine 100mg daily to venlafaxine ER 150mg daily * Start Latuda 20mg daily with dinner * Start clonidine 0.1mg HS * Continue mirtazapine 15mg HS * Discontinue prazosin * Discontinue Vraylar -Symptom questionnaires provided -Labwork for tomorrow AM: * Fasting lipid panel * HbA1c * Vit D Inventory Assets Strengths: supportive relationships, willing to get treatment Needs: safety and stabilization, medication adjustment, additional coping skills, increased outpatient services Suicide Risk Level Suicide Risk Level: High-Moderate (q15 min suicide checks) (Si with plan and depression but feels safe in the hospital and feels able to ask for support ) Suicide Risk Level Comments: Risk Factors Assessment Male: No : Yes Do You Have Access To A Gun?: No Health Problems: Yes (asthma) Mental Health Diagnoses: Yes Substance Use Disorders: No Previous Attempt: No Family History of Suicide: Yes Previous Psychiatric Hospitalization: Yes Hopelessness: Yes Protective Factors Assessment Employed: Yes Stable Relationships: Yes Supportive Family: Yes Good Rapport with Provider: Yes Interval History Identifying Information SABRINA GUZMAN is a 29-year-old woman who currently lives in [place] alone with her cats, has a history of depression, anxiety and PTSD, and was admitted on 08/24/25 19:40 on a 201 voluntary commitment for SI with plan to overdose on her medications. Chief Complaint anxious ruminations Review of Systems Sleep Information Total Hours of Sleep: 7.5 Meal Information Percent Meal Consumed - Breakfast: 100 Percent Meal Consumed - Lunch: 100 Percent Meal Consumed - Dinner: 100 Subjective Subjective Patient was seen & assessed and interval progress reviewed with treatment team nursing and social work Overnight slept 7.5 hours. Reports having 2-3 nightmares however did not wake her up in distress and she presents relief regarding this. Family meeting today. Processed with a counselor last night and she found it effective. Discussed PTSD and strategies for long-term improvement in symptoms. Nervous about meeting with her mother today but feels she will set boundaries with her. Physical Exam Mental Examination Appearance: Unkempt Eye Contact: Maintains Eye Contact Motor Behavior: Unremarkable Speech: Normal and Soft Mood: Calm and Sad Affect: Constricted Thought Process: Intact Thought Content: Racing Hallucinations: None Insight: Good Judgement: Good Vital Signs (Past 24 Hours) Last Vital Signs Temp 36.7 C 08/31/25 06:00 Pulse 77 08/31/25 09:07 Resp 18 08/31/25 06:00 BP 129/82 08/31/25 09:07 Pulse Ox 98 08/30/25 06:27 O2 Del Method Room Air 08/30/25 06:27 Results & Data ([facility]) Laboratory Results Laboratory Results - last 24 hr 08/30/25 08/30/25 08/31/25 17:08 20:19 08:20 POC Glucose 94 191 H 123 H 08/31/25 11:44 POC Glucose 172 H Current Inpatient Medications Current Inpatient Medications: Current Inpatient Medications Acetaminophen (Acetaminophen 325 Mg Tab) 650 mg PO Q4H PRN PRN Reason: Headache or Minor Fever Stop: 09/23/25 20:48 Last Admin: 08/29/25 08:38 Dose: 650 mg Al Hydrox/Mg Hydrox/Simethicone (Aluminum/Magnesium Susp 30 Ml Udc) 30 ml PO Q4H PRN PRN Reason: GI Upset Stop: 09/23/25 20:48 Albuterol (Albuterol Hfa 8 Gm Inhaler) 2 puffs INH Q6 PRN PRN Reason: asthma Stop: 09/23/25 21:40 Bismuth Subsalicylate (Bismuth Subsalicylate 262 Mg Chew) 2 tab PO Q30M PRN PRN Reason: Loose Stool/Diarrhea Stop: 09/23/25 20:48 Cetirizine HCl (Cetirizine Hcl 10 Mg Tablet) 10 mg PO BID [facility] Stop: 09/24/25 11:29 Last Admin: 08/31/25 09:01 Dose: 10 mg Clonazepam (Clonazepam 1 Mg Tab) 1 mg PO BID PRN PRN Reason: panic attacks Stop: 09/24/25 20:59 Last Admin: 08/31/25 10:28 Dose: 1 mg Clonidine HCl (Clonidine Hcl 0.1 Mg Tab) 0.1 mg PO HS [facility] Stop: 09/24/25 21:59 Last Admin: 08/30/25 21:44 Dose: 0.1 mg Dextrose (Dextrose 50% 50 Ml Syringe) 25 - 50 ml IV UD PRN; Protocol PRN Reason: Hypoglycemia Protocol Stop: 09/23/25 21:14 Glucagon (Glucagon For Inj 1 Mg Vial) 1 mg SQ UD PRN; Protocol PRN Reason: Hypoglycemia Protocol Stop: 09/23/25 21:14 Glucose (Glucose 40% Gel 15 Gm Tube) 15 - 30 gm PO UD PRN; Protocol PRN Reason: Hypoglycemia Protocol Stop: 09/23/25 21:14 Glucose (Glucose 10 Tab/Tube) 4 - 8 tab PO UD PRN; Protocol PRN Reason: Hypoglycemia Protocol Stop: 09/23/25 21:14 Hydroxyzine HCl (Hydroxyzine Hcl 25 Mg Tab) 50 mg PO HSZ PRN PRN Reason: Insomnia Stop: 09/23/25 20:48 Hydroxyzine HCl (Hydroxyzine Hcl 25 Mg Tab) 25 mg PO Q4H PRN PRN Reason: Anxiety Stop: 09/23/25 20:48 Ibuprofen (Ibuprofen 200 Mg Tab) 400 mg PO Q8H PRN PRN Reason: Migraine Headache Stop: 09/28/25 13:44 Last Admin: 08/29/25 14:10 Dose: 400 mg Insulin Aspart (Insulin Aspart Per Unit Charge) 0 units SC ACHS [facility] Stop: 09/27/25 07:59 Last Admin: 08/31/25 09:13 Dose: 5 units Insulin Glargine (Lantus Per Unit Charge) 19 units SQ HS [facility] Stop: 09/26/25 21:44 Last Admin: 08/30/25 21:45 Dose: 19 units Lurasidone HCl (Lurasidone Hcl 20 Mg Tab) 20 mg PO DAILYBD [facility] Stop: 09/24/25 17:14 Last Admin: 08/30/25 17:35 Dose: 20 mg Magnesium Hydroxide (Magnesium Hydroxide Susp 30 Ml Udc) 30 ml PO DAILY PRN PRN Reason: Constipation Stop: 09/23/25 20:48 Mirtazapine (Mirtazapine Tab 15 Mg Tab) 15 mg PO HS [facility] Stop: 09/23/25 21:59 Last Admin: 08/30/25 21:44 Dose: 15 mg Miscellaneous (Carbohydrates For Hypoglycemia ) 15 - 30 gm PO UD PRN PRN Reason: Hypoglycemia Treatment Stop: 09/23/25 21:14 Miscellaneous (Remove Nicoderm Patch) 1 each N/A DAILY@2100 [facility] Stop: 09/24/25 20:59 Last Admin: 08/30/25 21:48 Dose: 1 each Miscellaneous Information (Pharmacy Glycemic Mgmt Consult) 1 each N/A UD PRN; Protocol PRN Reason: Consult Stop: 09/27/25 21:39 Montelukast Sodium (Montelukast Sodium 10 Mg Tablet) 10 mg PO HS [facility] Stop: 09/24/25 21:59 Last Admin: 08/30/25 21:44 Dose: 10 mg Nicotine (Nicotine 14 Mg/24 Hr Patch) 1 patch TD QAM [facility] Stop: 09/24/25 08:59 Last Admin: 08/31/25 09:08 Dose: Not Given Nicotine Polacrilex (Nicotine Polacrilex 2 Mg Gum) 2 piece MT PRN PRN PRN Reason: Nicotine Withdrawal Symptoms Stop: 09/23/25 21:36 Ondansetron HCl (Ondansetron 4 Mg Od Tab) 8 mg PO Q8H PRN PRN Reason: nausea Stop: 09/24/25 11:37 Last Admin: 08/29/25 19:06 Dose: 8 mg Oxybutynin Chloride (Oxybutynin Chloride Xl 5 Mg Tabcr) 5 mg PO DAILY [facility] Stop: 09/24/25 11:29 Last Admin: 08/31/25 09:01 Dose: 5 mg Pantoprazole Sodium (Pantoprazole 40 Mg Tab) 40 mg PO DAILY [facility] Stop: 09/24/25 11:44 Last Admin: 08/31/25 09:02 Dose: 40 mg Propranolol HCl (Propranolol Hcl 10 Mg Tab) 10 mg PO TID [facility] Stop: 09/26/25 13:59 Last Admin: 08/31/25 09:09 Dose: 10 mg Sodium Chloride (Sodium Chloride 0.65% Na Soln 45 Ml ([place])) 1 - 2 sprays NA PRN PRN PRN Reason: Nasal Dryness/Congestion Stop: 09/23/25 20:48 Venlafaxine HCl (Venlafaxine Hcl Xr 150 Mg Capxr) 150 mg PO QAM [facility] Stop: 09/24/25 11:59 Last Admin: 08/31/25 09:01 Dose: 150 mg Vitamin D (Cholecalciferol 25 Mcg (1000 Units) Tab) 125 mcg PO DAILY [facility] Stop: 09/26/25 08:59 Last Admin: 08/31/25 09:01 Dose: 125 mcg Mental Health & Subst Abuse Tx Psychiatrist Name of Psychiatrist: LEFTY Psychiatrist's Date Of Appointment With Psychiatric Provider: 09/06/25 Time of Appointment with Psychiatrist: markell Psychiatric Appointment Comment: In person appt Therapist Name of Therapist: Cecelia douglas [facility] Therapist's Date of Therapist Appointment: 09/02/25 Time of Therapist Appointment: Axel Director Of Global Marketing Name of Director Of Global Marketing: verónica Post Discharge Appointments Primary Care Physician Name Of Family Doctor/PCP: Carmen Martinez - [facility] Primary Care Provider Appointment Comment: Follow up as needed Other #1: Name of Aftercare Appointment: [facility] Phone Number of Aftercare Appointment: Date of Aftercare Appointment: 09/02/25 Time of Aftercare Appointment: 6p Aftercare Appointment Comment: Link sent to your email to set up portal Contact Information Discharge Discharge Address: [address] [place] [address] [address], [place] [address]
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
--- NOTE | 2025-09-01 14:34 | Pharmacy Report ---
Pharmacy Glycemic Short Note 2 - Date of Service September 01, 2025 - Glycemic Short BSG Results (Last 24 hours): 08/31/25 08/31/25 09/01/25 17:18 20:40 08:25 POC Glucose 130 H 110 H 135 H 09/01/25 12:38 POC Glucose 137 H OUTPATIENT ANTIDIABETIC REGIMEN: * Lantus 19 units HS HbA1c: 8.7% (08/26/25) ASSESSMENT: 09/01/25: * BSGs have been stable the past 48 hours without additional changes * Continue current regimen 08/29/25: * Blood sugars have been reasonably controlled with some mild elevations >180 mg/dL * Do not anticipate any major changes to current glycemic regimen 08/27/25: * Jennifer is a 29 year old female admitted with suicidal ideations and a history of insulin dependent diabetes mellitus (type 2 DM). Pharmacy has been consulted for glycemic management while inpatient. * All BSGs above goal in last 24 hours. Basal insulin increased this evening per MD and CDE recommendations, will continue and add correctional only NovoLog at this time to better assess true basal need. PLAN FOR INPATIENT GLYCEMIC CONTROL: * Basal insulin * Lantus 19 units SC HS (see EHR for details) * Bolus insulin * NovoLog per scale ACHS or Q6hrs while NPO * Goal Range: Low 110 mg/dL - High 150 mg/dL * Correction Factor: 30 mg/dL/unit * Nutritional / Prandial insulin per carb ratio of 1 unit per 8 grams CHO consumed
--- NOTE | 2025-09-02 10:03 | Discharge Summary ---
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 Urine RBC (Auto) U Hyaline Cast (Auto) U Epithel Cells (Auto) Urine Bacteria (Auto) Urine Mucus Urine Yeast Urine Comment Salicylates Urine Opiates Screen Ur Methadone, Qual Urine Fentanyl Screen Acetaminophen Urine Barbiturates Ur Phencyclidine (PCP) U Amphetamin/Meth Scrn MDMA (Ecstasy) Screen U Benzodiazepines Scrn Ur Cocaine Metabolite U Marijuana (THC) Screen Ethyl Alcohol mg/dL SARS-CoV-2, RNA, NAAT 09/02/25 07:56 WBC RBC Hgb Hct MCV MCH MCHC RDW Std Deviation RDW Coeff of David Plt Count MPV Immature Gran % (Auto) Neut % (Auto) Lymph % (Auto) [place] % (Auto) Eos % (Auto) Baso % (Auto) Neut # (Auto) Lymph # (Auto) [place] # (Auto) Eos # (Auto) Baso # (Auto) Immature Gran # (Auto) Sodium Potassium Chloride Carbon Dioxide Anion Gap BUN Creatinine Est Cr Clr Drug Dosing eGFR BUN/Creatinine Ratio Glucose POC Glucose 129 H Estimat Average Glucose Hemoglobin A1c Calcium Total Bilirubin AST ALT Alkaline Phosphatase Total Protein Albumin Globulin Albumin/Globulin Ratio Triglycerides Cholesterol LDL Cholesterol, Calc VLDL Cholesterol, Calc HDL Cholesterol Cholesterol/HDL Ratio 25-OH Vitamin D Total TSH HCG, Qual Urine Color Urine Appearance Urine pH Ur Specific [place] Urine Protein Urine Glucose (UA) Urine Ketones Urine Blood Urine Nitrite Urine Bilirubin Urine Urobilinogen Ur Leukocyte Esterase Urine WBC (Auto) Urine RBC (Auto) U Hyaline Cast (Auto) U Epithel Cells (Auto) Urine Bacteria (Auto) Urine Mucus Urine Yeast Urine Comment Salicylates Urine Opiates Screen Ur Methadone, Qual Urine Fentanyl Screen Acetaminophen Urine Barbiturates Ur Phencyclidine (PCP) U Amphetamin/Meth Scrn MDMA (Ecstasy) Screen U Benzodiazepines Scrn Ur Cocaine Metabolite U Marijuana (THC) Screen Ethyl Alcohol mg/dL SARS-CoV-2, RNA, NAAT Hospital Course (1) Insomnia: (2) MDD (major depressive disorder), recurrent episode, severe: (3) Post traumatic stress disorder (PTSD): (4) Generalized anxiety disorder with panic attacks: Plan 09/02/2025: Feels safe and desires discharge 09/01/2025: Continue medications and treatment plan 08/31/2025: Continue medications and treatment plan 08/30/2025: Continue medications and treatment plan 08/29/2025: Continue medications and treatment plan 08/28/2025: Continue medications and treatment plan 08/27/2025: Start propranolol 10 mg 3 times daily 08/26/2025: Increase vitamin D to 125 mcg daily. 08/25/2025: The patient was admitted to the [facility] ([facility] health unit) on q15 min checks (behavioral with suicide precautions) for safety. The patient will participate in group, recreational, and milieu therapies and will be offered additional individual and family sessions as clinically appropriate. -Medications: * Change from venlafaxine 100mg daily to venlafaxine ER 150mg daily * Start Latuda 20mg daily with dinner * Start clonidine 0.1mg HS * Continue mirtazapine 15mg HS * Discontinue prazosin * Discontinue Vraylar -Symptom questionnaires provided -Labwork for tomorrow AM: * Fasting lipid panel * HbA1c * Vit D Mental Health & Subst Abuse Tx Psychiatrist Name of Psychiatrist: [facility] Psychiatrist's Date Of Appointment With Psychiatric Provider: 09/06/25 Time of Appointment with Psychiatrist: [facility] Psychiatric Appointment Comment: In person appt Therapist Name of Therapist: Cecelia at [facility] Therapist's Date of Therapist Appointment: 09/02/25 Time of Therapist Appointment: Axel Locker Attendant Name of Locker Attendant: verónica Post Discharge Appointments Primary Care Physician Name Of Family Doctor/PCP: Carmen Martinez - [facility] Primary Care Provider Appointment Comment: Follow up as needed Smoking Cessation Counseling Tobacco Cessation Medication Prescribed at Discharge: Offered & Pt Refused Other #1: Name of Aftercare Appointment: [facility] Phone Number of Aftercare Appointment: Date of Aftercare Appointment: 09/02/25 Time of Aftercare Appointment: 6p Aftercare Appointment Comment: Link sent to your email to set up portal Contact Information Discharge Discharge Address: [address] [place] [id number] Discharge Plan Discharge Items Patient Disposition: Home - Self-Care Reason For Visit: UNSPECIFIED MOOD DISORDER Discharge Diagnosis: Major Depressive Disorder, recurrent Condition on Discharge: Good Activity: Resume your previous activity Non-emergency contact: Primary Care Provider, Psychiatrist and Therapist Call non-emergency contact if: you have any medication questions and your symptoms worsen Follow-up/Referrals: Carmen Martinez [Primary Care Provider] - Diet: Regular Addtl Attending Provider Instructions: Optional mobile apps we discussed: -Suicide safety plan -Virtual Hope Box SPECIAL CARE INSTRUCTIONS: 1. Follow through with your scheduled aftercare appointments. If unable to keep an appointment, please call to reschedule. 2. Take your medication only as prescribed. Medication should not be changed or stopped without the approval of your doctor. In the event of worsening symptoms or concerns about side effects, contact your doctor immediately. 3. Utilize new healthy coping skills, anger management skills, and stress management skills learned during your hospitalization. Journal feelings and process them with a support person. Identify stressors or situations that may result in relapse, deterioration or inappropriate behaviors and develop a plan to deal with those issues. 4. If your coping skills are ineffective and you are in crisis, contact your outpatient providers for direction. If unable to reach your providers, please call the [facility] CRISIS LINE AT , go to the [facility] walk-in center at [address] [place] [address] [address], [place], or go to the closest Emergency Room. 5. Avoid alcohol and un-prescribed drugs. 6. You have been provided with the Mental Health Advance Directives Pamphlet for your review. 7. Your condition is stable for discharge to outpatient level of care, but recovery is an ongoing process. Ifthoughts to harm yourself or others return, follow the safety plan developed during your stay. Planning for a safe return home includes securing weapons. Our treatment team recommends weaponsbe removed from the home until your outpatient provider reassesses your progress. In rare cases where the items themselvescannot be removed, guns and ammunitionshould be secured separatelyand keys stored by a reliable personoutside of the home. If you were admitted on an involuntary commitment, the police or other legal authorities may be involved in this process. AFTERCARE APPOINTMENTS: * Please call your insurance company prior to your scheduled appointment to confirm your aftercare providers are covered. Take your insurance information to your appointments. WHO TO CALL AND WHEN: Medical Emergencies: For questions or emergencies related to your hospital stay, please contact the Inpatient Behavioral Health Unit at [phone]. A marketing research coordinator is on-call 22/04 for the Behavioral Health Unit for emergencies At any time you feel your situation is an emergency, you may also call 911 immediately. National Crisis Hotline: 985 Pending Studies at Discharge: No Stand-Alone Forms: My [facility] Medications and DC Order Prescriptions: New cetirizine 10 mg Tablet 10 mg PO BID Qty: 1 0RF clonidine HCl 0.1 mg Tablet 0.1 mg PO HS 30 Days Qty: 30 0RF venlafaxine 150 mg Capsule,Extended Release 24hr 150 mg PO QAM 30 Days Qty: 30 0RF propranolol 10 mg Tablet 10 mg PO TID 30 Days Qty: 90 0RF mirtazapine 15 mg Tablet 15 mg PO HS 30 Days Qty: 30 0RF lurasidone 20 mg Tablet 20 mg PO DAILYBD 30 Days Qty: 30 0RF Continued clonazepam 1 mg Tablet 1 mg PO BID oxybutynin chloride 5 mg Tablet Extended Release 24hr 5 mg PO DAILY montelukast [Singulair] 10 mg Tablet 10 mg PO HS Basaglar KwikPen U-100 Insulin 19 unit SC HS Dexilant 60 mg PO DAILY Dupixent Pen 300 mg SC WK Rx Instructions: Q 2 weeks Vitamin D3 3,000 units PO DAILY ferrous fumarate 55 mg (18 mg iron) Tablet Extended Release 45 mg PO HS albuterol 90 mcg/actuation Aerosol 90 mcg INHALATION DIRECTED Rx Instructions: Q 4 hours 2 puffs prochlorperazine maleate [Compazine] 10 mg Tablet 10 mg PO Q8H PRN (Reason: Nausea) ondansetron HCl 8 mg Tablet 8 mg PO Q8H PRN (Reason: nausea) Discontinued Vraylar 3 mg Capsule 3 mg PO DAILY Effexor 100 mg PO DAILY Remeron 15 mg PO HS Discharge Orders: Discharge Order (Routine); Ordered 09/02/25 Ordered By: Kristi Wu/Other Patient Handouts: Managing Type 2 Diabetes Admission Data Admit Date/Time: 08/24/25 19:40 Attending Provider: Kristi Redding Admit Provider: Kristi Redding Primary Care Provider: Carmen Martinez Interventions: Discharge Summary Assessment (RN) Last Done: 09/02/25 10:07 PSY Interdisciplinary Discharge Planning Last Done: 09/02/25 10:09 Coding Level of Care Code 59178 D/C day mgmt > 30 min Diagnoses Insomnia G47.00 MDD (major depressive disorder), recurrent episode, severe F33.2 Post traumatic stress disorder (PTSD) F43.10 Generalized anxiety disorder with panic attacks F41.1; F41.0
== END 2025-09-02 10:38 | disposition home or self-care (01) | DRG 885 ==
LOC: ED 16:44 → SUATTDRO 19:40 → 3S 19:40

== ENCOUNTER 2025-09-11 19:49 | Inpatient (IN) ==
--- NOTE | 2025-09-11 20:17 | Emergency Department Note ---
Impression & Plan MDD (major depressive disorder), recurrent episode, severe, Depression with suicidal ideation ED Provider Note NAME: SABRINA GUZMAN AGE: 29 SEX: F : 1995 ARRIVES VIA: Walk-In INFORMANT: Patient, ED PROVIDER(S): Zach Funes MD CHIEF COMPLAINT: Mental wellness concern, thoughts of overdose MEDICAL DECISION MAKING: Patient presents with the above. Blood work is obtained. Patient was he medically cleared referrals were made through case management. The patient's blood work shows a white count of 13 normal hemoglobin and platelet count kidney function is unremarkable. Mild hypokalemia at 3.4. Patient's medications were ordered including her insulin. Urinalysis does show the possibility of infection but there is conceals noted. I discussed this with the patient who denies any urinary symptoms at this time. No dysuria frequency or low back pain. No antibiotics at this time. Patient was subsequently mated to 3 S. for inpatient psychiatric services. Discussion w/ other healthcare providers: None Prior /Outside records reviewed: none Differential diagnosis: Mood disorder, infection, hypoglycemia, electrolyte abnormalities, dehydration, medication side effect among others were considered. Diagnostics, as interpreted by me: ECG: None Medical decision rules: Suicide risk. Score Imaging studies: HPI: Patient presents due to concern for self-harm. The patient reportedly has developed thoughts of killing herself by overdosing on prescription medications. The patient states that it began in a more extreme fashion just several days ago. No obvious trigger so a several days ago. The patient states that she was recently admitted after attempted self-harm by cutting herself at the end of July. The patient reports that she is compliant with her medications although did not take her evening meds yet today. Patient denies any HI or AVH. The patient states that she feels safe at home other than from herself. No access to guns or weapons. She states that her sleep has been okay but her appetite has been poor. She has not been eating. Patient denies any alcohol tobacco or drug use. She denies any abdominal pain or nausea vomiting. LMP was at the end of July. PAST MEDICAL HISTORY: See Below PAST SURGICAL HISTORY: See Below SOCIAL HISTORY: See Below HOME MEDICATIONS: See Below ALLERGIES: See Below VITALS: See Below PHYSICAL EXAMINATION: GENERAL: NAD, non-toxic. Wearing glasses. EYE EXAM: Normal conjunctiva. PERRL, no anisocoria and EOM's grossly intact w/o pain. OROPHARYNX: Moist mucus membranes, grossly normal dentition. NECK: Trachea midline, no stridor. LUNGS: Clear to auscultation. Normal chest wall mechanics. HEART: NSR, no MRG. ABDOMEN: Abdomen soft, non-tender, no masses, no rebound or guarding. SKIN: Dry skin noted of the lower extremities and hands. UPPER EXTREMITIES: Upper extremities are grossly normal. LOWER EXTREMITIES: Grossly normal, no edema. NEURO EXAM: Awake and alert, follows commands, no obvious facial asymmetry, normal speech, moves all 4 extremities. Psych: Positive SI with plan, flat affect/depressed mood. Denies HI or AVH. Past Med/Surg History Problem List (Updated 09/12/25 @ 14:58 by Zach Funes MD) Depression with suicidal ideation (Acute) Insomnia Generalized anxiety disorder with panic attacks Post traumatic stress disorder (PTSD) MDD (major depressive disorder), recurrent episode, severe (Acute) Medical History Suicidal ideations Social History Smoking Status: Current every day smoker Tobacco Type: E-cigarettes / Vaping Preferred Language: Sinhala Communication Ability: Effective Fiber Technician Required: No Beliefs That Will Affect Care: None Feels Safe at Home: Yes Gender Identity: Female Assistive Devices: Glasses Allergies Allergies Allergy/AdvReac Type Severity Reaction Status Date / Time amitriptyline Allergy Severe Unverified 08/24/25 20:57 Sulfa (Sulfonamide Allergy Severe Anaphylaxis Unverified 08/24/25 20:59 Antibiotics) egg Allergy Intermediate Hives Unverified 08/24/25 20:55 escitalopram [From Lexapro] Allergy Intermediate Unknown Unverified 08/24/25 20:59 mushroom Allergy Intermediate Hives Unverified 08/24/25 20:56 Home Meds Home Medications Medication Instructions Recorded Confirmed clonazepam 1 mg tablet 1 mg PO BID PRN Anxiety 08/24/25 09/11/25 montelukast 10 mg tablet 10 mg PO HS 08/24/25 09/11/25 (Singulair) ondansetron HCl 8 mg tablet 8 mg PO Q8H PRN nausea 08/24/25 09/11/25 oxybutynin chloride 5 mg 5 mg PO QAM 08/24/25 09/11/25 tablet,extended release 24 hr albuterol sulfate 2.5 mg/3 mL 2.5 mg inhalation Q4H PRN 09/11/25 09/11/25 (0.083 %) solution for nebulization Shortness Of Breath Or Wheezing albuterol sulfate 90 mcg/actuation 2 puff inhalation Q4 PRN Shortness 09/11/25 09/11/25 aerosol inhaler Of Breath Or Wheezing cholecalciferol (vitamin D3) 125 125 mcg PO QAM 09/11/25 09/11/25 mcg (5,000 unit) tablet (Vitamin D3) dexlansoprazole 60 mg 60 mg PO QAM 09/11/25 09/11/25 capsule,biphase delayed release dupilumab 300 mg/2 mL subcutaneous 300 mg subcut .EVERY 2 WEEKS 09/11/25 09/11/25 syringe (Dupixent) ferrous sulfate, dried 159 mg (45 159 mg PO HS 09/11/25 09/11/25 mg iron) tablet,extended release (iron ER) glipizide 5 mg tablet 5 mg PO QDD 09/11/25 09/11/25 insulin glargine 100 unit/mL (3 38 unit subcut HS 09/11/25 09/11/25 mL) subcutaneous pen (Basaglar KwikPen U-100 Insulin) lurasidone 20 mg tablet 20 mg PO QDD 09/11/25 09/11/25 polyethylene glycol 3350 17 17 g PO BID PRN Constipation 09/11/25 09/11/25 gram/dose oral powder (Miralax) Previous Rx's Medication Instructions Recorded cetirizine 10 mg tablet 10 mg PO BID #1 tab 09/02/25 clonidine HCl 0.1 mg tablet 0.1 mg PO HS 30 days #30 tabs 09/02/25 mirtazapine 15 mg tablet 15 mg PO HS 30 days #30 tabs 09/02/25 propranolol 10 mg tablet 10 mg PO TID 30 days #90 tabs 09/02/25 venlafaxine 150 mg 150 mg PO QAM 30 days #30 caps 09/02/25 capsule,extended release 24 hr Results & Data (ED) Vital Signs Vital Signs - 24 hr 09/11/25 19:54 09/11/25 21:52 Temperature 36.6 C Temperature Source Oral Pulse Rate 93 H Pulse Rate [Left Finger] 99 H Pulse Rhythm [Left Finger] Regular Pulse Strength [Left Finger] Normal Respiratory Rate 18 18 Respiratory Effort / Characteristics Non-Labored Spontaneous Non-Labored Respiratory Depth Normal Normal Respiratory Pattern Regular Regular Blood Pressure 123/87 Blood Pressure [Left Arm] 132/81 Blood Pressure Mean 99 Blood Pressure Mean [Left Arm] 98 Blood Pressure Position Sitting Blood Pressure Position [Left Arm] Sitting Pulse Oximetry 98 96 Oxygen Delivery Method Room Air Room Air Sepsis Recent Fever Within 48 Hours No Sepsis New/Unexplained Change in Mental Status N/A Sepsis Action Taken by Nursing No Action Required Home Medications Current Medication List: was personally reviewed by me Laboratory Data Attestation: I reviewed the patient's lab results. 09/11/25 20:45 09/11/25 20:45 Lab Results 09/11/25 09/11/25 Range/Units 20:18 20:45 WBC 13.79 H (4.8-10.8) K/ul RBC 4.95 (4.20-5.40) M/uL Hgb 14.0 (12.0-16.0) g/dL Hct 40.6 (37.0-47.0) % MCV 82.0 (80.0-100.0) fL MCH 28.3 (25.0-34.0) pg MCHC 34.5 (32.0-36.0) g/dL RDW Std Deviation 36.6 (36.4-46.3) fL RDW Coeff of David 12.2 (11.5-14.5) % Plt Count 380 (130-400) K/uL MPV 9.2 L (9.4-12.4) fL Immature Gran % (Auto) 0.5 % Neut % (Auto) 60.6 % Lymph % (Auto) 31.6 % [place] % (Auto) 4.6 % Eos % (Auto) 2.2 % Baso % (Auto) 0.5 % Neut # (Auto) 8.34 H (1.40-6.50) K/uL Lymph # (Auto) 4.36 H (1.20-3.40) K/uL [place] # (Auto) 0.64 H (0.11-0.59) K/uL Eos # (Auto) 0.31 (0.00-0.50) K/uL Baso # (Auto) 0.07 (0.00-0.20) K/uL Immature Gran # (Auto) 0.07 (0.01-0.20) K/uL Sodium 137 (136-145) mmol/L Potassium 3.4 L (3.5-5.1) mmol/L Chloride 105 (98-107) mmol/L Carbon Dioxide 24 (21-32) mmol/L Anion Gap 8 (3-11) BUN 9 (6-23) mg/dl Creatinine 0.63 (0.6-1.2) mg/dl Est Cr Clr Drug Dosing 145.4 ml/min eGFR 123.07 BUN/Creatinine Ratio 14.3 (10-20) Glucose 187 H (70-99(Fasting)) mg/dl Calcium 9.0 (8.6-10.3) mg/dl Total Bilirubin 0.4 (0.2-1.0) mg/dl AST 25 (13-39) U/L ALT 23 (7-52) U/L Alkaline Phosphatase 166 H (34-104) U/L Total Protein 6.8 (6.0-8.3) gm/dl Albumin 3.7 (3.4-5.0) gm/dl Globulin 3.1 (2.5-4.0) gm/dl Albumin/Globulin Ratio 1.2 (0.9-2) TSH 1.215 (0.300-4.500) uIu/ml HCG, Qual Negative (Negative) Urine Color Yellow Urine Appearance Clear (Clear) Urine pH 6.5 (4.5-7.5) Ur Specific [place] 1.019 (1.000-1.030) Urine Protein Negative (Negative) Urine Glucose (UA) Negative (Negative) Urine Ketones Negative (Negative) Urine Blood Negative (Negative) Urine Nitrite Negative (Negative) Urine Bilirubin Negative (Negative) Urine Urobilinogen Negative (Negative) Ur Leukocyte Esterase Trace H (Negative) Urine WBC (Auto) 11-20 H (0-5) /hpf Urine RBC (Auto) 0-2 (0-2) /hpf U Hyaline Cast (Auto) 0-2 (0-2) /lpf U Epithel Cells (Auto) 3-5 H (0-2) /hpf Urine Bacteria (Auto) 3+ H (None Seen) Calcium Oxalate Crystal Present A (None Prsent) Urine Comment Salicylates < 3.0 L (3.0-30) mg/dl Urine Opiates Screen Neg (Neg) Ur Methadone, Qual Neg (Neg) Urine Fentanyl Screen Neg (Neg) Acetaminophen < 3 L (10-30) ug/ml Urine Barbiturates Neg (Neg) Ur Phencyclidine (PCP) Neg (Neg) U Amphetamin/Meth Scrn Neg (Neg) MDMA (Ecstasy) Screen Neg (Neg) U Benzodiazepines Scrn Neg (Neg) Ur Cocaine Metabolite Neg (Neg) U Marijuana (THC) Screen Neg (Neg) Ethyl Alcohol mg/dL < 10.0 (<10.0) mg/dl SARS-CoV-2, RNA, NAAT NEGATIVE (NEGATIVE) Administered Medications Cetirizine HCl (Cetirizine Hcl 10 Mg Tablet) 10 mg PO BID [facility] Stop: 10/12/25 13:09 Last Admin: 09/12/25 13:28 Dose: 10 mg Documented By: DENA Nicotine (Nicotine 14 Mg/24 Hr Patch) 1 patch TD [facility] Stop: 10/12/25 08:59 Last Admin: 09/12/25 09:13 Dose: 1 patch Documented By: DENA Oxybutynin Chloride (Oxybutynin Chloride 5 Mg Tab) 5 mg PO DAILY [facility] Stop: 10/12/25 11:44 Last Admin: 09/12/25 12:58 Dose: 5 mg Documented By: DENA Propranolol HCl (Propranolol Hcl 10 Mg Tab) 10 mg PO TID [facility] Stop: 10/12/25 13:59 Last Admin: 09/12/25 13:28 Dose: 10 mg Documented By: DENA Venlafaxine HCl (Venlafaxine Hcl Xr 150 Mg Capxr) 150 mg PO [facility] Stop: 10/12/25 11:44 Last Admin: 09/12/25 12:58 Dose: 150 mg Documented By: DENA Vitamin D (Cholecalciferol 125 Mcg (5,000 Units) Tab) [facility]: 10/12/25 11:59 Last Admin: 09/12/25 12:58 Dose: 125 mcg Documented By: DENA Discontinued Medications Cetirizine HCl (Cetirizine Hcl 10 Mg Tablet) 10 mg PO BID [facility] Stop: 10/11/25 21:14 Last Admin: 09/11/25 22:02 Dose: 10 mg Documented By: KARMA Clonidine HCl (Clonidine Hcl 0.1 Mg Tab) 0.1 mg PO HS STA Stop: 09/11/25 21:08 Last Admin: 09/11/25 21:51 Dose: 0.1 mg Documented By: KARMA Insulin Glargine (Lantus Per Unit Charge) 38 units SC HS STA Stop: 09/11/25 21:53 Last Admin: 09/11/25 21:57 Dose: 38 units Documented By: KARMA Co-signed By: PAIGE Mirtazapine (Mirtazapine Tab 15 Mg Tab) 15 mg PO HS STA Stop: 09/11/25 21:08 Last Admin: 09/11/25 21:51 Dose: 15 mg Documented By: KARMA Montelukast Sodium (Montelukast Sodium 10 Mg Tablet) 10 mg PO HS STA Stop: 09/11/25 21:08 Last Admin: 09/11/25 21:51 Dose: 10 mg Documented By: KARMA Propranolol HCl (Propranolol Hcl 10 Mg Tab) 10 mg PO TID STA Stop: 09/11/25 21:08 Last Admin: 09/11/25 21:53 Dose: 10 mg Documented By: KARMA Discharge Plan Visit Data Chief Complaint: Mental Health Evaluation Stated Complaint: SUICIDAL ED Provider: Zach Funes Discharge Problem: MDD (major depressive disorder), recurrent episode, severe, Depression with suicidal ideation Patient Disposition: Transfer Behavioral Health Fac Condition: Good Discharge Instructions Interventions: ED Discharge Assessment Last Done: 09/11/25 23:21 Discharge Problem: MDD (major depressive disorder), recurrent episode, severe Qualifiers: Psychotic features: without psychotic features Qualified Code(s): F33.2 - Major depressive disorder, recurrent severe without psychotic features
[2025-09-11 20:58] LABS: Appearance Urine Clear (Clear); Bacteria Urine Automated 3+ (None Seen); Cast Urine Automated 0-2 /lpf (0-2); Glucose Urine UA Negative (Negative); RBC Urine Automated 0-2 /hpf (0-2)
[2025-09-11] MEDS ORDERED: NON-FORMULARY MEDICATION (Insulin Glargine [Basaglar Kwikpen U-100 Insulin] 100 unit/mL (3 SQ STA (21:07)
[2025-09-11 21:16] LABS: Hematocrit (blood only) 40.6 % (37.0-47.0); Hemoglobin 14.0 g/dL (12.0-16.0); Immature Granulocytes # (auto) 0.07 K/uL (0.01-0.20); Immature Granulocytes % (auto) 0.5 %; Mean Corpuscular Hemoglobin 28.3 pg (25.0-34.0); Mean Corpuscular Volume 82.0 fL (80.0-100.0); Platelet Count 380 K/uL (130-400); RDW Standard Deviation 36.6 fL (36.4-46.3); Red Blood Count 4.95 M/uL (4.20-5.40); White Blood Count 13.79 K/ul (4.8-10.8)
[2025-09-11 21:24] LABS: Amphetamines+Metham, Urine Neg (Neg); MDMA (Ecstacy), Urine Neg (Neg); Marijuana, Urine Neg (Neg)
[2025-09-11 21:35] LABS: Acetaminophen < 3 ug/ml (10-30); Salicylate < 3.0 mg/dl (3.0-30)
[2025-09-11 21:38] LABS: Alanine Aminotransferase 23.0 U/L (7-52); Albumin Globulin Ratio 1.2 (0.9-2); Albumin Level 3.7 gm/dl (3.4-5.0); Alkaline Phosphatase 166.0 U/L (34-104); Anion Gap 8.0 (3-11); Bilirubin,Total 0.4 mg/dl (0.2-1.0); Blood Urea Nitrogen 9.0 mg/dl (6-23); Calcium 9.0 mg/dl (8.6-10.3); Carbon Dioxide 24.0 mmol/L (21-32); Chloride 105.0 mmol/L (98-107); Creatinine Clr Calc Pharmacy 145.4 ml/min; Globulin 3.1 gm/dl (2.5-4.0); Glucose 187.0 mg/dl (70-99(Fasting)); Potassium 3.4 mmol/L (3.5-5.1); Sodium 137.0 mmol/L (136-145); Total Protein 6.8 gm/dl (6.0-8.3)
[2025-09-11 21:46] LABS: Pregnancy Test, Serum Negative (Negative)
[2025-09-11] MEDS: MONTELUKAST SODIUM 10 MG TABLET PO STA (21:51)
[2025-09-11] MEDS: MIRTAZAPINE TAB 15 MG TAB PO STA (21:51)
[2025-09-11 21:53] LABS: Thyroid Stimulating Hormone 1.215 uIu/ml (0.300-4.500)
[2025-09-11] MEDS: PROPRANOLOL HCL 10 MG TAB PO STA (21:53)
[2025-09-11] MEDS: LANTUS PER UNIT CHARGE SC STA (21:57)
[2025-09-11] MEDS: CETIRIZINE HCL 10 MG TABLET PO SCH (22:02)
[2025-09-11] MEDS ORDERED: MAGNESIUM HYDROXIDE SUSP 30 ML UDC PO PRN (23:48)
[2025-09-11] MEDS ORDERED: SODIUM CHLORIDE 0.65% NA SOLN 45 ML (OCEAN) PRN (23:48)
[2025-09-11] MEDS ORDERED: ACETAMINOPHEN 325 MG TAB PO PRN (23:48)
[2025-09-12] MEDS ORDERED: DEXLANSOPRAZOLE 60 MG PO SCH (09:00)
[2025-09-12] MEDS ORDERED: VENLAFAXINE HCL XR 150 MG CAPXR PO SCH (09:00)
[2025-09-12] MEDS: NICOTINE 14 MG/24 HR PATCH TD SCH (09:13)
--- NOTE | 2025-09-12 10:04 | History & Physical ---
Date of Service September 12, 2025 Impression / Recommendations Impression Sabrina Roach is a 29-year-old female, with significant history of major depressive disorder recurrent, generalized anxiety disorder and PTSD. She is being readmitted for recurrence of suicidal ideation with a plan to overdose, which occurred rapidly after discharge from this unit earlier this month. She felt that Latuda is helpful at first, but the benefit waned quickly. She is not have any side effects to that medication, and it could indicate that she is not yet at the therapeutic dose. Latuda does tend to take about 2 weeks to fully kick in, so a dose increase at this point would be a meaningful change. Effexor on the other hand, was just increased about 2 weeks ago, and will become effective for another 2 to 4 weeks from now. I recommend giving the 150 mg dose more time before evaluating whether an increase that is necessary. Regarding anxiety, we did discuss whether to increase propranolol, however blood pressures have been a bit soft, and she is also on clonidine. She does feel clonidine helps her nightmares however. She also has already had previous trials of BuSpar and gabapentin. Vistaril is ordered as needed, if this is helpful we could consider scheduling it. However, psychotherapeutic interventions may be the most important part of her treatment here, as specifically targeting preparation for returning home to home and certain responsibilities, since those stressors seem to have overwhelmed her quickly. Overall, I spent a total of 60 minutes on this patient's care, including review of chart/records, direct evaluation of the patient, ordering medication, coordin ation with nursing, interdisciplinary team meeting, and documentation. (1) MDD (major depressive disorder), recurrent episode, severe: Psychotic features: without psychotic features Qualified Code(s): F33.2 - Major depressive disorder, recurrent severe without psychotic features (2) Post traumatic stress disorder (PTSD): (3) Generalized anxiety disorder with panic attacks: Plan Admit on a 201 Increase Latuda to 40 mg with dinner Continue Effexor XR 150 mg, mirtazapine 15 mg nightly. Continue propranolol 10 mg 3 times daily for anxiety, and consider increasing to 20 mg if blood pressures improve and remain stable. encourage p.o. hydration For now, continue clonidine 0.1 mg nightly. she previously tolerated taking both propranolol and clonidine during her last admission. Okay to continue Klonopin as needed, but I would not recommend increasing it Discussed the possibility of adding Topamax in the future, but avoiding now due to polypharmacy. It could have the additional benefit of migraine prophylaxis in addition to some mood stabilizing and anxiolytic properties Home medications for physical health indications (including insulin) were also continued 15-minute checks for suicide risk precaution Encouraged participation in the milieu, and group therapy Inventory Assets Strengths: Able to utilize safety plan. Gave her mother all her medications and past self-harm items upon discharge last time. Did not act on self-harm or suicidal thoughts prior to admission. Reached out for help when symptoms worsened. Self presented to the emergency room and admitted on a voluntary status Needs: medication adjustment, further coping skills development Suicide Risk Level Suicide Risk Level: Moderate (q15 min suicide checks) Suicide Risk Level Comments: acute risk is moderate given active suicidal ideation. She did have a plan prior to admission. Denies any plan or intent to harm herself now. she also reports feeling safe in the hospital and is able to ask for support if symptoms worsen. Risk Factors Assessment Male: No : Yes Do You Have Access To A Gun?: No Health Problems: Yes Mental Health Diagnoses: Yes Substance Use Disorders: No Previous Attempt: No Family History of Suicide: Yes Previous Psychiatric Hospitalization: Yes Hopelessness: Yes Protective Factors Assessment : No Responsible for Young Children: No Employed: Yes Stable Relationships: Yes Supportive Family: Yes Good Rapport with Provider: Yes Psychiatric History Identifying Data SABRINA ROACH is a 29-year-old F who currently lives in alone, has a history of major depressive disorder, PTSD, FAINA, who was recently discharged from our unit on and is readmitted 09/11/25 22:58 on a 201 voluntary commitment for return of suicidal ideation and worsening depression. Chief Complaint " it was happening really fast". History of Present Illness Patient is a 29-year-old woman with MDD, PTSD and FAINA, who was recently admitted here from 4 8 days, after presenting with severe anxiety and suicidal ideation. She was discharged on 09 02, and says when she first got home she felt anxious but believes that was normal. However then she started getting depressed again and said "it was happening really fast." She said it within a day she was struggling to even get out of bed. She said the depression has been worse in intensity than it was prior to her last admission. She did attempt to go through her safety plan. She spent time with her mom, attempted her coping skills, and attended her outpatient appointment. Her psychiatrist recommended she take more time off work, but work denied that due to her being employed for less than a year, and not being eligible for FMLA. She attempted to go back to work Saturday but "it was rough." She had poor focus due to frequent thoughts of self-harm, suicidal ideation and "I did not want to be there or life." She did not act on the self-harm or suicidal thoughts. At 1 point, she did call into the unit for support and to inquire if there were beds, she was redirected to the she was advised to come in to the emergency room. She says "I am not happy about being here. I wish I was strong enough to not be here." She denies any side effects to her medications, and still states that they were helpful at first during her last admission. Since her admission to the unit, she has, as she felt she was discharged too soon. She has had a poor appetite and has been oversleeping. Has been polite with staff, but somewhat guarded and staying in her room most of the day. Past Psychiatric History Previous Psych History: per Dr. Redding's H+P ~2 weeks ago: Current Psychiatric Diagnosis: MDD, FAINA, PTSD, unspecified mood disorder Outpatient Services: [facility] for therapy through family services Zahra Bolivar NP at [facility] Previous Psych Admissions: [facility] in 2018-depression/anxiety/SI Also, upon d/c was referred to [facility] and attended a few sessions so far. Med trials: lexapro (allergy), wellbutrin, prozac, zoloft, amitriptyline, trazodone (HAs), Vraylar, clonidine, propranolol, effexor, mirtazapine, buspar (didn't help), neurontin ("I just remember it was bad"). Do You Have Access To A Gun?: No History of Previous Suicide Attempt: No Allergies Allergy/AdvReac Type Severity Reaction Status Date / Time amitriptyline Allergy Severe Unverified 08/24/25 20:57 Sulfa (Sulfonamide Allergy Severe Anaphylaxis Unverified 08/24/25 20:59 Antibiotics) egg Allergy Intermediate Hives Unverified 08/24/25 20:55 escitalopram [From [employer]] Allergy Intermediate Unknown Unverified 08/24/25 20:59 mushroom Allergy Intermediate Hives Unverified 08/24/25 20:56 Home Medications Medication Instructions Recorded Confirmed Type clonazepam 1 mg tablet 1 mg PO BID PRN Anxiety 08/24/25 09/11/25 History montelukast 10 mg tablet 10 mg PO HS 08/24/25 09/11/25 History (Singulair) ondansetron HCl 8 mg tablet 8 mg PO Q8H PRN nausea 08/24/25 09/11/25 History oxybutynin chloride 5 mg 5 mg PO QAM 08/24/25 09/11/25 History tablet,extended release 24 hr cetirizine 10 mg tablet 10 mg PO BID #1 tab 09/02/25 09/11/25 Rx clonidine HCl 0.1 mg tablet 0.1 mg PO HS 30 days #30 tabs 09/02/25 09/11/25 Rx mirtazapine 15 mg tablet 15 mg PO HS 30 days #30 tabs 09/02/25 09/11/25 Rx propranolol 10 mg tablet 10 mg PO TID 30 days #90 tabs 09/02/25 09/11/25 Rx venlafaxine 150 mg 150 mg PO QAM 30 days #30 caps 09/02/25 09/11/25 Rx capsule,extended release 24 hr albuterol sulfate 2.5 mg/3 mL 2.5 mg inhalation Q4H PRN 09/11/25 09/11/25 History (0.083 %) solution for nebulization Shortness Of Breath Or Wheezing albuterol sulfate 90 mcg/actuation 2 puff inhalation Q4 PRN Shortness 09/11/25 09/11/25 History aerosol inhaler Of Breath Or Wheezing cholecalciferol (vitamin D3) 125 125 mcg PO QAM 09/11/25 09/11/25 History mcg (5,000 unit) tablet (Vitamin D3) dexlansoprazole 60 mg 60 mg PO QAM 09/11/25 09/11/25 History capsule,biphase delayed release dupilumab 300 mg/2 mL subcutaneous 300 mg subcut .EVERY 2 WEEKS 09/11/25 09/11/25 History syringe (Dupixent) ferrous sulfate, dried 159 mg (45 159 mg PO HS 09/11/25 09/11/25 History mg iron) tablet,extended release (iron ER) glipizide 5 mg tablet 5 mg PO QDD 09/11/25 09/11/25 History insulin glargine 100 unit/mL (3 38 unit subcut HS 09/11/25 09/11/25 History mL) subcutaneous pen (Basaglar KwikPen U-100 Insulin) lurasidone 20 mg tablet 20 mg PO QDD 09/11/25 09/11/25 History polyethylene glycol 3350 17 17 g PO BID PRN Constipation 09/11/25 09/11/25 History gram/dose oral powder (Miralax) Family History Family Mental Health History Comment: Depression, Bipolar (paternal grandmother and possibly father) and Suicide Completion (distant paternal cousin) Alcohol History Hx of Alcohol Use Over the Past 12 Months: No AUDIT Total Score: 0 Smoking Use Have You Smoked or Used Tobacco Products in the Last 30 Days: Yes tobacco type: e-cigarettes Smoking Status: Current every day smoker Substance History Hx of Prescription Med Misuse Over the Past 12 Months: No Hx of Over the Counter Med Misuse Over the Past 12 Months: No Hx of Inhalent Misuse Over the Past 12 Months: No Hx of Organic Substance Use Over the Past 12 Months: No Hx of Illegal Substances/Street Drug Use Over Past 12 Months: No Problems as a Result of Past Substance Use: None Identified Personal History Living Arrangements: Apartment Living Arrangements Comments: lives alone Highest Grade Completed: Some College 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 Marital Status: Single Number Of Children: 0 Beliefs That Will Affect Care: None Current Legal Problems: No Hx Legal Problems: No Hx Traumatic Life Events: Yes Patient History Medical History Thumb injury Migraine Urinary incontinence Type II diabetes mellitus Asthma Suicidal ideations Social History Smoking Status: Current every day smoker Tobacco Type: E-cigarettes / Vaping Preferred Language: [place] Communication Ability: Effective Motion Picture Director Required: No Beliefs That Will Affect Care: None Feels Safe at Home: Yes Gender Identity: Female Assistive Devices: Glasses Review of Systems Review of Systems: All systems reviewed & are unremarkable except as noted in HPI & below daily migraines, at times with nausea and photophobia Physical Exam Psychiatric: Orientation: alert, oriented x 3 and + guarded Apperance: appropriately dressed, appropriately groomed and appeared stated age Eye Contact: + fair eye contact Motor Behavior: steady gait and station, no abnormal motor movements and + psychomotor retardation Speech: normal rate/rhythm/volume of speech Affect: + depressed affect, + constricted affect and mood congruent with affect Mood: + depressed mood and + anxious mood Thought Process: goal directed thought process, linear/logical thought process, clear/coherent thought process and thought association intact Thought Content: + cognitive distortions and reality based without delusions Suicidal Thoughts: denies suicidal plan and denies suicidal intent; + reports suicidal thoughts Homicidal Thoughts: denies homicidal thoughts, denies homicidal plan and denies homicidal intent Hallucinations: no auditory hallucinations and no visual hallucinations Cognition: recent memory grossly intact, remote memory grossly intact, attention grossly intact and language grossly intact Estimated Intelligence: consistent with education level Insight: + fair i nsight Judgment: + fair judgement Vital Signs (Past 24 Hours): Last Vital Signs Temp 36.4 C L 09/12/25 06:00 Pulse 84 09/12/25 06:01 Resp 18 09/12/25 06:00 BP 105/69 09/12/25 06:01 Pulse Ox 95 09/12/25 06:00 O2 Del Method Room Air 09/12/25 06:00 Physical Examination: A physical exam was performed in the ED by Zach Funes for the purposes of medical clearance. I accept that physical as correct and adequate for the purposes of the inpatient physical exam. Results & Data ([facility]) Laboratory Results Laboratory Results - last 24 hr 09/11/25 09/11/25 09/12/25 20:18 20:45 08:55 WBC 13.79 H RBC 4.95 Hgb 14.0 Hct 40.6 MCV 82.0 MCH 28.3 MCHC 34.5 RDW Std Deviation 36.6 RDW Coeff of David 12.2 Plt Count 380 MPV 9.2 L Immature Gran % (Auto) 0.5 Neut % (Auto) 60.6 Lymph % (Auto) 31.6 [place] % (Auto) 4.6 Eos % (Auto) 2.2 Baso % (Auto) 0.5 Neut # (Auto) 8.34 H Lymph # (Auto) 4.36 H [place] # (Auto) 0.64 H Eos # (Auto) 0.31 Baso # (Auto) 0.07 Immature Gran # (Auto) 0.07 Sodium 137 Potassium 3.4 L Chloride 105 Carbon Dioxide 24 Anion Gap 8 BUN 9 Creatinine 0.63 Est Cr Clr Drug Dosing 145.4 eGFR 123.07 BUN/Creatinine Ratio 14.3 Glucose 187 H POC Glucose 138 H Calcium 9.0 Total Bilirubin 0.4 AST 25 ALT 23 Alkaline Phosphatase 166 H Total Protein 6.8 Albumin 3.7 Globulin 3.1 Albumin/Globulin Ratio 1.2 TSH 1.215 HCG, Qual Negative Urine Color Yellow Urine Appearance Clear Urine pH 6.5 Ur Specific [place] 1.019 Urine Protein Negative Urine Glucose (UA) Negative Urine Ketones Negative Urine Blood Negative Urine Nitrite Negative Urine Bilirubin Negative Urine Urobilinogen Negative Ur Leukocyte Esterase Trace H Urine WBC (Auto) 11-20 H Urine RBC (Auto) 0-2 U Hyaline Cast (Auto) 0-2 U Epithel Cells (Auto) 3-5 H Urine Bacteria (Auto) 3+ H Calcium Oxalate Crystal Present A Urine Comment Salicylates < 3.0 L Urine Opiates Screen Neg Ur Methadone, Qual Neg Urine Fentanyl Screen Neg Acetaminophen < 3 L Urine Barbiturates Neg Ur Phencyclidine (PCP) Neg U Amphetamin/Meth Scrn Neg MDMA (Ecstasy) Screen Neg U Benzodiazepines Scrn Neg Ur Cocaine Metabolite Neg U Marijuana (THC) Screen Neg Ethyl Alcohol mg/dL < 10.0 SARS-CoV-2, RNA, NAAT NEGATIVE Current Inpatient Medications Current Inpatient Medications: Current Inpatient Medications Acetaminophen (Acetaminophen 325 Mg Tab) 650 mg PO Q4H PRN PRN Reason: Headache or Minor Fever Stop: 10/11/25 23:47 Al Hydrox/Mg Hydrox/Simethicone (Aluminum/Magnesium Susp 30 Ml Udc) 30 ml PO Q4H PRN PRN Reason: GI Upset Stop: 10/11/25 23:47 Bismuth Subsalicylate (Bismuth Subsalicylate 262 Mg Chew) 2 tab PO Q30M PRN PRN Reason: Loose Stool/Diarrhea Stop: 10/11/25 23:47 Clonazepam (Clonazepam 1 Mg Tab) 1 mg PO BID PRN PRN Reason: Severe Anxiety Stop: 10/11/25 23:46 Hydroxyzine HCl (Hydroxyzine Hcl 25 Mg Tab) 50 mg PO HSZ PRN PRN Reason: Insomnia Stop: 10/11/25 23:47 Hydroxyzine HCl (Hydroxyzine Hcl 25 Mg Tab) 25 mg PO Q4H PRN PRN Reason: Anxiety Stop: 10/11/25 23:47 Magnesium Hydroxide (Magnesium Hydroxide Susp 30 Ml Udc) 30 ml PO DAILY PRN PRN Reason: Constipation Stop: 10/11/25 23:47 Miscellaneous (Remove Nicoderm Patch) 1 each N/A DAILY@0859 [facility] Stop: 10/13/25 08:58 Nicotine (Nicotine 14 Mg/24 Hr Patch) 1 patch TD QAM [facility] Stop: 10/12/25 08:59 Last Admin: 09/12/25 09:13 Dose: 1 patch Sodium Chloride (Sodium Chloride 0.65% Na Soln 45 Ml ([place])) 1 - 2 sprays NA PRN PRN PRN Reason: Nasal Dryness/Congestion Stop: 10/11/25 23:47
[2025-09-12] MEDS ORDERED: ALBUTEROL HFA 8 GM INHALER INH PRN (11:47)
[2025-09-12] MEDS ORDERED: GLUCOSE 10 TAB/TUBE PO PRN (12:00)
[2025-09-12] MEDS ORDERED: DEXTROSE 50% 50 ML SYRINGE IV PRN (12:00)
[2025-09-12] MEDS ORDERED: GLUCOSE 40% GEL 15 GM TUBE PO PRN (12:00)
[2025-09-12] MEDS ORDERED: GLUCAGON FOR INJ 1 MG VIAL SQ PRN (12:00)
[2025-09-12] MEDS: CHOLECALCIFEROL 125 MCG (5,000 UNITS) TAB PO SCH (12:58)
[2025-09-12] MEDS: VENLAFAXINE HCL XR 150 MG CAPXR PO SCH (12:58)
[2025-09-12] MEDS: PROPRANOLOL HCL 10 MG TAB PO SCH (13:28)
[2025-09-12] MEDS: CETIRIZINE HCL 10 MG TABLET PO SCH (13:28)
[2025-09-12] MEDS: clonazePAM 1 MG TAB PO PRN (15:54)
[2025-09-12] MEDS ORDERED: LURASIDONE HCL 20 MG TAB PO SCH (16:30)
[2025-09-12] MEDS ORDERED: glipiZIDE 5 MG TAB PO SCH (16:30)
[2025-09-12] MEDS: glipiZIDE 5 MG TAB PO SCH (16:48)
[2025-09-12] MEDS: LURASIDONE HCL 20 MG TAB PO SCH (17:18)
[2025-09-12] MEDS: MIRTAZAPINE TAB 15 MG TAB PO SCH (21:55)
[2025-09-12] MEDS: MONTELUKAST SODIUM 10 MG TABLET PO SCH (21:56)
[2025-09-12] MEDS: LANTUS PER UNIT CHARGE SQ SCH (21:59)
[2025-09-13] MEDS: REMOVE NICODERM PATCH SCH (08:55)
--- NOTE | 2025-09-13 08:55 | Psychiatric Progress Note ---
Date of Service September 13, 2025 Impression / Recommendations Impression Jennifer Roach is a 29-year-old female, with significant history of major depressive disorder recurrent, generalized anxiety disorder and PTSD. She is being readmitted for recurrence of suicidal ideation with a plan to overdose, which occurred rapidly after discharge from this unit earlier this month. She felt that Latuda is helpful at first, but the benefit waned quickly. She is not have any side effects to that medication, and it could indicate that she is not yet at the therapeutic dose. Latuda does tend to take about 2 weeks to fully kick in, so a dose increase at this point would be a meaningful change. Effexor on the other hand, was just increased about 2 weeks ago, and will become effective for another 2 to 4 weeks from now. I recommend giving the 150 mg dose more time before evaluating whether an increase that is necessary. Regarding anxiety, we did discuss whether to increase propranolol, however blood pressures have been a bit soft, and she is also on clonidine. She does feel clonidine helps her nightmares however. She also has already had previous trials of BuSpar and gabapentin. Vistaril is ordered as needed, if this is helpful we could consider scheduling it. However, psychotherapeutic interventions may be the most important part of her treatment here, as specifically targeting preparation for returning home to home and certain responsibilities, since those stressors seem to have overwhelmed her quickly. A: No significant improvement from yesterday. But is tolerating increase Latuda well. We discussed multiple medication options change options. Since her last admission, she has been taking both propranolol and clonidine nightly. Going to consolidate that to just twice a day in the morning and afternoon, and DC the at bedtime dose. This may allow us to increase the dosing during the day to target anxiety. In other words, schedule 20 mg twice daily in a.m. and at 2 PM. Patient was agreeable to this change and aware of the risks of lowering blood pressure or heart rate. I did put holding parameters in the orders as well. Also discussed the possible addition of a mood stabilizing agent to, given the irritability and racing thoughts that are accompanying her depression. Could represent a mixed episode, she does have a history family history of bipolar disorder. She does not herself identify the past hypomanic or manic episodes however. Discussed possibly Topamax, since it is also a prophylactic medicine for migraines, however she has a significant history of recurrent kidney stones so we did move away from that option. Reviewed Lamictal for augmentation of depression and help with irritability. Discussed risks and benefits and possible side effects, including but not limited to Mcdaniels-Madi syndrome. Patient said medication adherence would not be an issue, since she is having her mother help with that for the time being. She was agreeable to start 25 mg daily. Since she was having active thoughts of self-harm, did encourage her to remain in common areas and speak with staff. She had made no attempts or preparations to harm herself, and was actively attempting coping skills and enacting her safety plan. Overall, I spent a total of 40 minutes on this patient's care, including review of chart/records, direct evaluation of the patient, ordering medication, coordination with nursing, interdisciplinary team meeting, and documentation. (1) MDD (major depressive disorder), recurrent episode, severe: (2) Post traumatic stress disorder (PTSD): (3) Generalized anxiety disorder with panic attacks: Plan 09/13/25: Change propranolol to 20 mg twice daily in a.m. and 2 PM. Start Lamictal 25 mg daily Continue other medications without change. Encouraged engagement with staff and groups, especially if thoughts to harm self worsen. 09/12/25: Admit on a 201 Increase Latuda to 40 mg with dinner Continue Effexor XR 150 mg, mirtazapine 15 mg nightly. Continue propranolol 10 mg 3 times daily for anxiety, and consider increasing to 20 mg if blood pressures improve and remain stable. encourage p.o. hydration For now, continue clonidine 0.1 mg nightly. she previously tolerated taking both propranolol and clonidine during her last admission. Okay to continue Klonopin as needed, but I would not recommend increasing it Discussed the possibility of adding Topamax in the future, but avoiding now due to polypharmacy. It could have the additional benefit of migraine prophylaxis in addition to some mood stabilizing and anxiolytic properties Home medications for physical health indications (including insulin) were also continued 15-minute checks for suicide risk precaution Encouraged participation in the milieu, and group therapy Inventory Assets Strengths: Able to utilize safety plan. Gave her mother all her medications and past self-harm items upon discharge last time. Did not act on self-harm or suicidal thoughts prior to admission. Reached out for help when symptoms worsened. Self presented to the emergency room and admitted on a voluntary status Needs: medication adjustment, further coping skills development Suicide Risk Level Suicide Risk Level: Moderate (q15 min suicide checks) Suicide Risk Level Comments: acute risk is moderate given active suicidal ideation. She did have a plan prior to admission. Denies any plan or intent to harm herself now. she also reports feeling safe in the hospital and is able to ask for support if symptoms worsen. Risk Factors Assessment Male: No : Yes Do You Have Access To A Gun?: No Health Problems: Yes Mental Health Diagnoses: Yes Substance Use Disorders: No Previous Attempt: No Family History of Suicide: Yes Previous Psychiatric Hospitalization: Yes Hopelessness: Yes Protective Factors Assessment : No Responsible for Young Children: No Employed: Yes Stable Relationships: Yes Supportive Family: Yes Good Rapport with Provider: Yes Interval History Identifying Information Jennifer Roach is a 29-year-old female, with significant history of major depressive disorder recurrent, generalized anxiety disorder and PTSD. She is being readmitted for recurrence of suicidal ideation with a plan to overdose, which occurred rapidly after discharge from this unit earlier this month. Chief Complaint " still struggling". Review of Systems Sleep Information Total Hours of Sleep: 9 Sleep Comments: Admitted early in the shift Meal Information Percent Meal Consumed - Breakfast: 40 Percent Meal Consumed - Lunch: 25 Percent Meal Consumed - Dinner: 40 Subjective Subjective Patient was seen & assessed and interval progress reviewed with treatment team Per report: isolative yesterday didn't leave room until afternoon rated mood 1/10 and "tired" poor appetite flat and guarded doesn't interact much spontaneously poor eye contact I met with the patient privately in her room. She reports she slept well last night and did not have any nausea after the Latuda increase. However, she continues to feel very depressed and her mind is racing. Reports her mind is full of thoughts to harm herself. Clarifies that she is not feeling suicidal, but has urges to self-harm as a release. She been coping by staying out of her room, and trying to participate in activities as a distraction. She remains guarded and offers little. Denies any physical complaints or symptoms. Was willing to discuss medication changes. Did shower on her own this morning. Physical Exam Psychiatric Orientation: alert, oriented x 3 and + guarded Apperance: appropriately dressed, appropriately groomed and appeared stated age Eye Contact: + fair eye contact Motor Behavior: steady gait and station, no abnormal motor movements and + psychomotor retardation Speech: normal rate/rhythm/volume of speech Affect: + depressed affect, + flat affect and mood congruent with affect Mood: + depressed mood Thought Process: goal directed thought process, linear/logical thought process, clear/coherent thought process and thought association intact Thought Content: + preoccupation, + cognitive distortions and reality based without delusions Suicidal Thoughts: denies suicidal plan and denies suicidal intent; + reports suicidal thoughts Homicidal Thoughts: denies homicidal thoughts, denies homicidal plan and denies homicidal intent Hallucinations: no auditory hallucinations and no visual hallucinations Cognition: recent memory grossly intact, remote memory grossly intact, attention grossly intact and language grossly intact Estimated Intelligence: consistent with education level Insight: + fair insight Judgment: + fair judgement Vital Signs (Past 24 Hours) Last Vital Signs Temp 36.2 C L 09/13/25 06:13 Pulse 89 09/13/25 06:14 Resp 16 09/13/25 06:13 BP 116/82 09/13/25 06:14 Pulse Ox 100 09/12/25 13:26 O2 Del Method Room Air 09/12/25 13:26 Results & Data ([facility]) Laboratory Results Laboratory Results - last 24 hr 09/12/25 09/12/25 09/12/25 08:55 12:17 16:46 POC Glucose 138 H 188 H 98 09/12/25 09/13/25 20:15 08:38 POC Glucose 90 107 H Current Inpatient Medications Current Inpatient Medications: Current Inpatient Medications Acetaminophen (Acetaminophen 325 Mg Tab) 650 mg PO Q4H PRN PRN Reason: Headache or Minor Fever Stop: 10/11/25 23:47 Al Hydrox/Mg Hydrox/Simethicone (Aluminum/Magnesium Susp 30 Ml Udc) 30 ml PO Q4H PRN PRN Reason: GI Upset Stop: 10/11/25 23:47 Albuterol (Albuterol Hfa 8 Gm Inhaler) 2 puffs INH QIDR PRN PRN Reason: Shortness Of Breath Or Wheezing Stop: 10/12/25 11:46 Bismuth Subsalicylate (Bismuth Subsalicylate 262 Mg Chew) 2 tab PO Q30M PRN PRN Reason: Loose Stool/Diarrhea Stop: 10/11/25 23:47 Cetirizine HCl (Cetirizine Hcl 10 Mg Tablet) 10 mg PO BID CORINNE Stop: 10/12/25 13:09 Last Admin: 09/12/25 21:55 Dose: 10 mg Clonazepam (Clonazepam 1 Mg Tab) 1 mg PO BID PRN PRN Reason: Severe Anxiety Stop: 10/11/25 23:46 Last Admin: 09/12/25 15:54 Dose: 1 mg Clonidine HCl (Clonidine Hcl 0.1 Mg Tab) 0.1 mg PO HS CORINNE Stop: 10/12/25 21:59 Last Admin: 09/12/25 21:56 Dose: 0.1 mg Dextrose (Dextrose 50% 50 Ml Syringe) 25 - 50 ml IV UD PRN; Protocol PRN Reason: Hypoglycemia Protocol Stop: 10/12/25 11:59 Glipizide (Glipizide 5 Mg Tab) 5 mg PO DAILY@1700 [facility] Stop: 10/13/25 16:59 Glucagon (Glucagon For Inj 1 Mg Vial) 1 mg SQ UD PRN; Protocol PRN Reason: Hypoglycemia Protocol Stop: 10/12/25 11:59 Glucose (Glucose 40% Gel 15 Gm Tube) 15 - 30 gm PO UD PRN; Protocol PRN Reason: Hypoglycemia Protocol Stop: 10/12/25 11:59 Glucose (Glucose 10 Tab/Tube) 4 - 8 tab PO UD PRN; Protocol PRN Reason: Hypoglycemia Protocol Stop: 10/12/25 11:59 Hydroxyzine HCl (Hydroxyzine Hcl 25 Mg Tab) 50 mg PO HSZ PRN PRN Reason: Insomnia Stop: 10/11/25 23:47 Hydroxyzine HCl (Hydroxyzine Hcl 25 Mg Tab) 25 mg PO Q4H PRN PRN Reason: Anxiety Stop: 10/11/25 23:47 Last Admin: 09/12/25 21:59 Dose: 25 mg Insulin Glargine (Lantus Per Unit Charge) 38 units SQ HS [facility] Stop: 10/12/25 21:59 Last Admin: 09/12/25 21:59 Dose: 38 units Lurasidone HCl (Lurasidone Hcl 20 Mg Tab) 40 mg PO DAILYBD [facility]IN[facility] Stop: 10/12/25 17:14 Last Admin: 09/12/25 17:18 Dose: 40 mg Magnesium Hydroxide (Magnesium Hydroxide Susp 30 Ml Udc) 30 ml PO DAILY PRN PRN Reason: Constipation Stop: 10/11/25 23:47 Mirtazapine (Mirtazapine Tab 15 Mg Tab) 15 mg PO HS [facility] Stop: 10/12/25 21:59 Last Admin: 09/12/25 21:55 Dose: 15 mg Miscellaneous (Remove Nicoderm Patch) 1 each N/A DAILY@0859 [facility] Stop: 10/13/25 08:58 Miscellaneous (Carbohydrates For Hypoglycemia ) 15 - 30 gm PO UD PRN PRN Reason: Hypoglycemia Treatment Stop: 10/12/25 11:59 Montelukast Sodium (Montelukast Sodium 10 Mg Tablet) 10 mg PO HS [facility] Stop: 10/12/25 21:59 Last Admin: 09/12/25 21:56 Dose: 10 mg Nicotine (Nicotine 14 Mg/24 Hr Patch) 1 patch TD QAM [facility] Stop: 10/12/25 08:59 Last Admin: 09/12/25 09:13 Dose: 1 patch Oxybutynin Chloride (Oxybutynin Chloride 5 Mg Tab) 5 mg PO DAILY [facility] Stop: 10/12/25 11:44 Last Admin: 09/12/25 12:58 Dose: 5 mg Propranolol HCl (Propranolol Hcl 10 Mg Tab) 10 mg PO TID [facility]INNE Stop: 10/12/25 13:59 Last Admin: 09/12/25 21:55 Dose: 10 mg Sodium Chloride (Sodium Chloride 0.65% Na Soln 45 Ml ([facility])) 1 - 2 sprays NA PRN PRN PRN Reason: Nasal Dryness/Congestion Stop: 10/11/25 23:47 Venlafaxine HCl (Venlafaxine Hcl Xr 150 Mg Capxr) 150 mg PO QAM [facility] Stop: 10/12/25 11:44 Last Admin: 09/12/25 12:58 Dose: 150 mg Vitamin D (Cholecalciferol 125 Mcg (5,000 Units) Tab) 125 mcg PO QAM [facility] Stop: 10/12/25 11:59 Last Admin: 09/12/25 12:58 Dose: 125 mcg Mental Health & Subst Abuse Tx Psychiatrist Name of Psychiatrist: [facility] Psychiatrist's Therapist Name of Therapist: [facility] Therapist's Date of Therapist Appointment: TBD - Social Work notified [facility] of admit. Post Discharge Appointments Primary Care Physician Name Of Family Doctor/PCP: Carmen Martinez - [facility] Contact Information Discharge Discharge Address: [facility] [address], [place] [address] (1) MDD (major depressive disorder), recurrent episode, severe Psychotic features: without psychotic features Qualified Code(s): F33.2 - Major depressive disorder, recurrent severe without psychotic features
[2025-09-13] MEDS ORDERED: NICOTINE POLACRILEX 2 MG GUM MT PRN (10:40)
[2025-09-13] MEDS: lamoTRIgine 25 MG TAB PO SCH (15:15)
[2025-09-13] MEDS: glipiZIDE 5 MG TAB PO SCH (17:18)
[2025-09-14] MEDS: PROPRANOLOL HCL 20 MG TAB PO SCH ×3 (08:44→22:10)
--- NOTE | 2025-09-14 08:57 | Psychiatric Progress Note ---
Date of Service September 14, 2025 Impression / Recommendations Impression Jennifer Roach is a 29-year-old female, with significant history of major depressive disorder recurrent, generalized anxiety disorder and PTSD. She is being readmitted for recurrence of suicidal ideation with a plan to overdose, which occurred rapidly after discharge from this unit earlier this month. She felt that Latuda is helpful at first, but the benefit waned quickly. She is not have any side effects to that medication, and it could indicate that she is not yet at the therapeutic dose. Latuda does tend to take about 2 weeks to fully kick in, so a dose increase at this point would be a meaningful change. Effexor on the other hand, was just increased about 2 weeks ago, and will become effective for another 2 to 4 weeks from now. I recommend giving the 150 mg dose more time before evaluating whether an increase that is necessary. Regarding anxiety, we did discuss whether to increase propranolol, however blood pressures have been a bit soft, and she is also on clonidine. She does feel clonidine helps her nightmares however. She also has already had previous trials of BuSpar and gabapentin. Vistaril is ordered as needed, if this is helpful we could consider scheduling it. However, psychotherapeutic interventions may be the most important part of her treatment here, as specifically targeting preparation for returning home to home and certain responsibilities, since those stressors seem to have overwhelmed her quickly. A: modest improvement from yesterday. Tolerating propranolol well. Since she is having some difficulty sleeping, will going to discontinue the clonidine, and scheduled propranolol 20 mg 3 times daily to further help with anxiety. Also discussed at length possible options for medication changes to target sleep. She has already tried trazodone, amitriptyline, Vistaril, Seroquel, with various degrees of side effects or ineffectiveness. Klonopin does not make her tired. She has never been on Ambien, doxepin, Zyprexa. However, hesitant to prescribe Ambien given she currently uses Klonopin as needed. Also hesitant to prescribe doxepin, since she had a "severe reaction" to tricyclic's in the past (that she had immediately worsening of suicidal ideation). Also had to retrial Seroquel or try Zyprexa, given her history of diabetes which is difficult to maintain, and she is already currently overweight; Both medications could wor sen those risks. Additionally, she remains dedicated to the Latuda trial, since she recalls it helping significantly in the past. Instead, we discussed changing Effexor to Cymbalta. She has not had significant improvement so far on Effexor. Admittedly, it is a bit early in the trial to call it ineffective. However, Cymbalta with her chronic headaches, and is typically more sedating, and theoretically could help with sleep as well. Patient was agreeable to the change. Will do a cross taper over the next several days Overall, I spent a total of 50 minutes on this patient's care, including review of chart/records, direct evaluation of the patient, ordering medication, coordination with nursing, interdisciplinary team meeting, and documentation. (1) MDD (major depressive disorder), recurrent episode, severe: (2) Post traumatic stress disorder (PTSD): (3) Generalized anxiety disorder with panic attacks: Plan 09/14/25: discontinue clonidine increase propranolol to 20 mg 3 times daily Cymbalta 20 mg x 1 today, then 30 mg nightly starting tomorrow decrease Effexor to 112.5 mg daily starting in the morning. Continue Latuda, Lamictal and mirtazapine without change for now. 09/13/25: Change propranolol to 20 mg twice daily in a.m. and 2 PM. Start Lamictal 25 mg daily Continue other medications without change. Encouraged engagement with staff and groups, especially if thoughts to harm self worsen. 09/12/25: Admit on a 201 Increase Latuda to 40 mg with dinner Continue Effexor XR 150 mg, mirtazapine 15 mg nightly. Continue propranolol 10 mg 3 times daily for anxiety, and consider increasing to 20 mg if blood pressures improve and remain stable. encourage p.o. hydration For now, continue clonidine 0.1 mg nightly. she previously tolerated taking both propranolol and clonidine during her last admission. Okay to continue Klonopin as needed, but I would not recommend increasing it Discussed the possibility of adding Topamax in the future, but avoiding now due to polypharmacy. It could have the additional benefit of migraine prophylaxis in addition to some mood stabilizing and anxiolytic properties Home medications for physical health indications (including insulin) were also continued 15-minute checks for suicide risk precaution Encouraged participation in the milieu, and group therapy Inventory Assets Strengths: Able to utilize safety plan. Gave her mother all her medications and past self-harm items upon discharge last time. Did not act on self-harm or suicidal thoughts prior to admission. Reached out for help when symptoms worsened. Self presented to the emergency room and admitted on a voluntary status Needs: medication adjustment, further coping skills development Suicide Risk Level Suicide Risk Level: Moderate (q15 min suicide checks) Suicide Risk Level Comments: acute risk is moderate given active suicidal ideation. She did have a plan prior to admission. Denies any plan or intent to harm herself now. she also reports feeling safe in the hospital and is able to ask for support if symptoms worsen. Risk Factors Assessment Male: No : Yes Do You Have Access To A Gun?: No Health Problems: Yes Mental Health Diagnoses: Yes Substance Use Disorders: No Previous Attempt: No Family History of Suicide: Yes Previous Psychiatric Hospitalization: Yes Hopelessness: Yes Protective Factors Assessment : No Responsible for Young Children: No Employed: Yes Stable Relationships: Yes Supportive Family: Yes Good Rapport with Provider: Yes Interval History Identifying Information Jennifer Roach is a 29-year-old female, with significant history of major depressive disorder recurrent, generalized anxiety disorder and PTSD. She is being readmitted for recurrence of suicidal ideation with a plan to overdose, which occurred rapidly after discharge from this unit earlier this month. Chief Complaint "[]". Review of Systems Sleep Information Total Hours of Sleep: 7.45 Meal Information Percent Meal Consumed - Breakfast: 100 Percent Meal Consumed - Lunch: 75 Percent Meal Consumed - Dinner: 45 Subjective Subjective Patient was seen & assessed and interval progress reviewed with nursing and social work. per report: continued flat and withdrawn no self-harm acts stayed out of room, distracted self and journaled PRN madeline x 2 yesterday 1:1 with counselor last evening rated mood 1/10, feeling overwhelmed affect brightens with superficial interactions and small talk I met with the patient privately in her room. She says she is feeling "a smidge better." Identifies it as having a little bit of hope. Says her thoughts for self-harm and depression are still strong. She has not acted on those. She is coping actively by staying visible the nurses station, in the company of other people, and trying to dissipate in activities such as journaling, watching TV, and groups. She says that the increased propranolol dose has been helpful so far today. She has not needed Klonopin so far today and sees that it is an improvement as well. She did report having some difficulty sleeping last night. Denies tremor, GI upset or other possible side effects. She continues to have a headache, which is chronic for her. Physical Exam Psychiatric Orientation: alert and oriented x 3 Apperance: appropriately dressed, appropriately groomed and appeared stated age Eye Contact: good eye contact Motor Behavior: steady gait and station, no abnormal motor movements and + psychomotor retardation Speech: normal rate/rhythm/volume of speech Affect: + depressed affect, + constricted affect and mood congruent with affect Not as flat, did attempt to smile a few times Mood: + depressed mood and + anxious mood Thought Process: goal directed thought process, linear/logical thought process, clear/coherent thought process and thought association intact Thought Content: + preoccupation, + cognitive distortions and reality based without delusions Suicidal Thoughts: denies suicidal plan and denies suicidal intent; + reports suicidal thoughts Homicidal Thoughts: denies homicidal thoughts, denies homicidal plan and denies homicidal intent Hallucinations: no auditory hallucinations and no visual hallucinations Cognition: recent memory grossly intact, remote memory grossly intact, attention grossly intact and language grossly intact Estimated Intelligence: consistent with education level Insight: + fair insight Judgment: + fair judgement Vital Signs (Past 24 Hours) Last Vital Signs Temp 36.5 C 09/14/25 06:33 Pulse 96 H 09/14/25 08:40 Resp 18 09/14/25 06:33 BP 103/69 09/14/25 08:40 Pulse Ox 95 09/14/25 06:33 O2 Del Method Room Air 09/14/25 06:33 Results & Data ([facility]) Laboratory Results Laboratory Results - last 24 hr 09/13/25 09/13/25 09/13/25 12:43 17:15 20:41 POC Glucose 128 H 118 H 127 H 09/14/25 08:37 POC Glucose 102 H Current Inpatient Medications Current Inpatient Medications: Current Inpatient Medications Acetaminophen (Acetaminophen 325 Mg Tab) 650 mg PO Q4H PRN PRN Reason: Headache or Minor Fever Stop: 10/11/25 23:47 Al Hydrox/Mg Hydrox/Simethicone (Aluminum/Magnesium Susp 30 Ml Udc) 30 ml PO Q4H PRN PRN Reason: GI Upset Stop: 10/11/25 23:47 Albuterol (Albuterol Hfa 8 Gm Inhaler) 2 puffs INH QIDR PRN PRN Reason: Shortness Of Breath Or Wheezing Stop: 10/12/25 11:46 Bismuth Subsalicylate (Bismuth Subsalicylate 262 Mg Chew) 2 tab PO Q30M PRN PRN Reason: Loose Stool/Diarrhea Stop: 10/11/25 23:47 Cetirizine HCl (Cetirizine Hcl 10 Mg Tablet) 10 mg PO BID [facility] Stop: 10/12/25 13:09 Last Admin: 09/14/25 08:42 Dose: 10 mg Clonazepam (Clonazepam 1 Mg Tab) 1 mg PO BID PRN PRN Reason: Severe Anxiety Stop: 10/11/25 23:46 Last Admin: 09/13/25 21:02 Dose: 1 mg Clonidine HCl (Clonidine Hcl 0.1 Mg Tab) 0.1 mg PO HS [facility] Stop: 10/12/25 21:59 Last Admin: 09/13/25 20:55 Dose: 0.1 mg Dextrose (Dextrose 50% 50 Ml Syringe) 25 - 50 ml IV UD PRN; Protocol PRN Reason: Hypoglycemia Protocol Stop: 10/12/25 11:59 Glipizide (Glipizide 5 Mg Tab) 5 mg PO DAILY@1700 [facility] Stop: 10/13/25 16:59 Last Admin: 09/13/25 17:18 Dose: 5 mg Glucagon (Glucagon For Inj 1 Mg Vial) 1 mg SQ UD PRN; Protocol PRN Reason: Hypoglycemia Protocol Stop: 10/12/25 11:59 Glucose (Glucose 40% Gel 15 Gm Tube) 15 - 30 gm PO UD PRN; Protocol PRN Reason: Hypoglycemia Protocol Stop: 10/12/25 11:59 Glucose (Glucose 10 Tab/Tube) 4 - 8 tab PO UD PRN; Protocol PRN Reason: Hypoglycemia Protocol Stop: 10/12/25 11:59 Hydroxyzine HCl (Hydroxyzine Hcl 25 Mg Tab) 50 mg PO HSZ PRN PRN Reason: Insomnia Stop: 10/11/25 23:47 Hydroxyzine HCl (Hydroxyzine Hcl 25 Mg Tab) 25 mg PO Q4H PRN PRN Reason: Anxiety Stop: 10/11/25 23:47 Last Admin: 09/12/25 21:59 Dose: 25 mg Insulin Glargine (Lantus Per Unit Charge) 38 units SQ [facility] Stop: 10/12/25 21:59 Last Admin: 09/13/25 20:57 Dose: 38 units [facility]otrigine ([facility]ot[facility] 25 Mg Tab) [facility] Protocol Stop: 10/13/25 14:29 Last Admin: 09/14/25 08:43 Dose: 25 mg Lurasidone HCl (Lurasidone Hcl 20 Mg Tab) 40 mg PO DAILYBD [facility] Stop: 10/12/25 17:14 Last Admin: 09/13/25 17:19 Dose: 40 mg Magnesium Hydroxide (Magnesium Hydroxide Susp 30 Ml Udc) 30 ml PO DAILY PRN PRN Reason: Constipation Stop: 10/11/25 23:47 Mirtazapine (Mirtazapine Tab 15 Mg Tab) 15 mg PO [facility] Stop: 10/12/25 21:59 Last Admin: 09/13/25 20:56 Dose: 15 mg Miscellaneous (Remove Nicoderm Patch) 1 each N/A DAILY@0859 [facility] Stop: 10/13/25 08:58 Last Admin: 09/14/25 08:42 Dose: Not Given Miscellaneous (Carbohydrates For Hypoglycemia ) 15 - 30 gm PO UD PRN PRN Reason: Hypoglycemia Treatment Stop: 10/12/25 11:59 Montelukast Sodium (Montelukast Sodium 10 Mg Tablet) 10 mg PO [facility] Stop: 10/12/25 21:59 Last Admin: 09/13/25 20:56 Dose: 10 mg Nicotine (Nicotine 14 Mg/24 Hr Patch) 1 patch TD [facility] Stop: 10/12/25 08:59 Last Admin: 09/14/25 08:42 Dose: 1 patch Nicotine Polacrilex (Nicotine Polacrilex 2 Mg Gum) 2 piece MT Q2H PRN PRN Reason: Nicotine Withdrawal Stop: 10/13/25 10:39 Oxybutynin Chloride (Oxybutynin Chloride 5 Mg Tab) 5 mg PO DAILY [facility] Stop: 10/12/25 11:44 Last Admin: 09/14/25 08:43 Dose: 5 mg Propranolol HCl (Propranolol Hcl 20 Mg Tab) 20 mg PO [facility] Stop: 10/14/25 08:59 Last Admin: 09/14/25 08:44 Dose: 20 mg Propranolol HCl (Propranolol Hcl 20 Mg Tab) 20 mg PO 1400 [facility] Stop: 10/14/25 13:59 Sodium Chloride (Sodium Chloride 0.65% Na Soln 45 Ml ([place])) 1 - 2 sprays NA PRN PRN PRN Reason: Nasal Dryness/Congestion Stop: 10/11/25 23:47 Venlafaxine HCl (Venlafaxine Hcl Xr 150 Mg Capxr) 150 mg PO QAM [facility] Stop: 10/12/25 11:44 Last Admin: 09/14/25 08:44 Dose: 150 mg Vitamin D (Cholecalciferol 125 Mcg (5,000 Units) Tab) 125 mcg PO QAM [facility] Stop: 10/12/25 11:59 Last Admin: 09/14/25 08:43 Dose: 125 mcg Mental Health & Subst Abuse Tx Psychiatrist Name of Psychiatrist: [facility] Psychiatrist's Therapist Name of Therapist: [facility] Therapist's Date of Therapist Appointment: TBD - Social Work notified [facility] of admit. Post Discharge Appointments Primary Care Physician Name Of Family Doctor/PCP: Carmen Martinez - [facility] Contact Information Discharge Discharge Address: [address] [place] [address] [place] [address] (1) MDD (major depressive disorder), recurrent episode, severe Psychotic features: without psychotic features Qualified Code(s): F33.2 - Major depressive disorder, recurrent severe without psychotic features
--- NOTE | 2025-09-15 08:49 | Psychiatric Progress Note ---
Date of Service September 15, 2025 Impression / Recommendations Impression Jennifer Roach is a 29-year-old female, with significant history of major depressive disorder recurrent, generalized anxiety disorder and PTSD. She is being readmitted for recurrence of suicidal ideation with a plan to overdose, which occurred rapidly after discharge from this unit earlier this month. She felt that Latuda is helpful at first, but the benefit waned quickly. She is not have any side effects to that medication, and it could indicate that she is not yet at the therapeutic dose. Latuda does tend to take about 2 weeks to fully kick in, so a dose increase at this point would be a meaningful change. Effexor on the other hand, was just increased about 2 weeks ago, and will become effective for another 2 to 4 weeks from now. I recommend giving the 150 mg dose more time before evaluating whether an increase that is necessary. Regarding anxiety, we did discuss whether to increase propranolol, however blood pressures have been a bit soft, and she is also on clonidine. She does feel clonidine helps her nightmares however. She also has already had previous trials of BuSpar and gabapentin. Vistaril is ordered as needed, if this is helpful we could consider scheduling it. However, psychotherapeutic interventions may be the most important part of her treatment here, as specifically targeting preparation for returning home to home and certain responsibilities, since those stressors seem to have overwhelmed her quickly. A: Some improvement, and affect is not as flat. Smiled several times during our encounter. Plan to continue cross-taper from Effexor over to Cymbalta. Continue propranolol without any further increase for now. Latuda has remained at 40 mg, and could be increased if needed, but it is only been a few days on this dose. Overall, I spent a total of 30 minutes on this patient's care, including review of chart/records, direct evaluation of the patient, ordering medication, coordination with nursing, interdisciplinary team meeting, and documentation. (1) MDD (major depressive disorder), recurrent episode, severe: (2) Post traumatic stress disorder (PTSD): (3) Generalized anxiety disorder with panic attacks: Plan 09/15/25: Starting tomorrow, Effexor 75 mg and Cymbalta 40 mg continue other medications without change, and encourage engagement in milieu 09/14/25: discontinue clonidine increase propranolol to 20 mg 3 times daily Cymbalta 20 mg x 1 today, then 30 mg nightly starting tomorrow decrease Effexor to 112.5 mg daily starting in the morning. Continue Latuda, Lamictal and mirtazapine without change for now. 09/13/25: Change propranolol to 20 mg twice daily in a.m. and 2 PM. Start Lamictal 25 mg daily Continue other medications without change. Encouraged engagement with staff and groups, especially if thoughts to harm self worsen. 09/12/25: Admit on a 201 Increase Latuda to 40 mg with dinner Continue Effexor XR 150 mg, mirtazapine 15 mg nightly. Continue propranolol 10 mg 3 times daily for anxiety, and consider increasing to 20 mg if blood pressures improve and remain stable. encourage p.o. hydration For now, continue clonidine 0.1 mg nightly. she previously tolerated taking both propranolol and clonidine during her last admission. Okay to continue Klonopin as needed, but I would not recommend increasing it Discussed the possibility of adding Topamax in the future, but avoiding now due to polypharmacy. It could have the additional benefit of migraine prophylaxis in addition to some mood stabilizing and anxiolytic properties Home medications for physical health indications (including insulin) were also continued 15-minute checks for suicide risk precaution Encouraged participation in the milieu, and group therapy Inventory Assets Strengths: Able to utilize safety plan. Gave her mother all her medications and past self-harm items upon discharge last time. Did not act on self-harm or suicidal thoughts prior to admission. Reached out for help when symptoms worsened. Self presented to the emergency room and admitted on a voluntary status Needs: medication adjustment, further coping skills development Suicide Risk Level Suicide Risk Level: Moderate (q15 min suicide checks) Suicide Risk Level Comments: acute risk is moderate given active suicidal ideation. She did have a plan prior to admission. Denies any plan or intent to harm herself now. she also reports feeling safe in the hospital and is able to ask for support if symptoms worsen. Risk Factors Assessment Male: No : Yes Do You Have Access To A Gun?: No Health Problems: Yes Mental Health Diagnoses: Yes Substance Use Disorders: No Previous Attempt: No Family History of Suicide: Yes Previous Psychiatric Hospitalization: Yes Hopelessness: Yes Protective Factors Assessment : No Responsible for Young Children: No Employed: Yes Stable Relationships: Yes Supportive Family: Yes Good Rapport with Provider: Yes Interval History Identifying Information Jennifer Roach is a 29-year-old female, with significant history of major depressive disorder recurrent, generalized anxiety disorder and PTSD. She is being readmitted for recurrence of suicidal ideation with a plan to overdose, which occurred rapidly after discharge from this unit earlier this month. Chief Complaint "[]". Review of Systems Sleep Information Total Hours of Sleep: 6.75 Meal Information Percent Meal Consumed - Breakfast: 100 Percent Meal Consumed - Lunch: 75 Percent Meal Consumed - Dinner: 100 Subjective Subjective Patient was seen & assessed and interval progress reviewed with treatment team per report: visit with yesterday - went well journals frequently colors mood 10/09 and "overwhelmed" because she plans to resign from her job [employer] in evening worked on a daily schedule I met with the patient privately in her room. She said she is feeling a little better today. She continues to have thoughts to self-harm, but says the thoughts are quieter. "They are not shouting at me." She has been able to work on some creative writing, and smiled while talking about it. Sleep was better last night. No dizziness today. No adverse effects from initial dose of Cymbalta, and so far no discontinuation effects from decreasing Effexor. She feels motivated to do laundry, shower and continue writing today. she did resign from her job today, says she is actually considering moving away from home health. She is not clear what she would want to do next. 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 Still considering her options. Physical Exam Psychiatric Orientation: alert and oriented x 3 Apperance: appropriately dressed and appropriately groomed Eye Contact: good eye contact Motor Behavior: steady gait and station and no abnormal motor movements Speech: normal rate/rhythm/volume of speech Affect: + constricted affect and mood congruent with affect Mood: + depressed mood Thought Process: goal directed thought process, linear/logical thought process, clear/coherent thought process and thought association intact Thought Content: + preoccupation, + cognitive distortions and reality based without delusions Suicidal Thoughts: denies suicidal plan and denies suicidal intent; + reports suicidal thoughts Homicidal Thoughts: denies homicidal thoughts, denies homicidal plan and denies homicidal intent Hallucinations: no auditory hallucinations and no visual hallucinations Cognition: recent memory grossly intact, remote memory grossly intact, attention grossly intact and language grossly intact Estimated Intelligence: consistent with education level Insight: + fair insight Judgment: + fair judgement Vital Signs (Past 24 Hours) Last Vital Signs Temp 36.6 C 09/15/25 06:26 Pulse 82 09/15/25 06:26 Resp 18 09/15/25 06:26 BP 101/68 09/15/25 06:27 Pulse Ox 94 09/15/25 06:26 O2 Del Method Room Air 09/15/25 06:26 Results & Data ([facility]) Laboratory Results Laboratory Results - last 24 hr 09/14/25 09/14/25 09/14/25 12:30 16:56 20:36 POC Glucose 184 H 83 116 H 09/15/25 08:34 POC Glucose 96 Current Inpatient Medications Current Inpatient Medications: Current Inpatient Medications Acetaminophen (Acetaminophen 325 Mg Tab) 650 mg PO Q4H PRN PRN Reason: Headache or Minor Fever Stop: 10/11/25 23:47 Al Hydrox/Mg Hydrox/Simethicone (Aluminum/Magnesium Susp 30 Ml Udc) 30 ml PO Q4H PRN PRN Reason: GI Upset Stop: 10/11/25 23:47 Albuterol (Albuterol Hfa 8 Gm Inhaler) 2 puffs INH QIDR PRN PRN Reason: Shortness Of Breath Or Wheezing Stop: 10/12/25 11:46 Bismuth Subsalicylate (Bismuth Subsalicylate 262 Mg Chew) 2 tab PO Q30M PRN PRN Reason: Loose Stool/Diarrhea Stop: 10/11/25 23:47 Cetirizine HCl (Cetirizine Hcl 10 Mg Tablet) 10 mg PO BID [facility]INNE Stop: 10/12/25 13:09 Last Admin: 09/14/25 22:11 Dose: 10 mg Clonazepam (Clonazepam 1 Mg Tab) 1 mg PO BID PRN PRN Reason: Severe Anxiety Stop: 10/11/25 23:46 Last Admin: 09/14/25 19:50 Dose: 1 mg Dextrose (Dextrose 50% 50 Ml Syringe) 25 - 50 ml IV UD PRN; Protocol PRN Reason: Hypoglycemia Protocol Stop: 10/12/25 11:59 Duloxetine HCl (Duloxetine Hcl 30 Mg Cap) 30 mg PO HS CORINNE Stop: 10/15/25 21:59 Glipizide (Glipizide 5 Mg Tab) 5 mg PO DAILY@1700 [facility] Stop: 10/13/25 16:59 Last Admin: 09/14/25 16:56 Dose: 5 mg Glucagon (Glucagon For Inj 1 Mg Vial) 1 mg SQ UD PRN; Protocol PRN Reason: Hypoglycemia Protocol Stop: 10/12/25 11:59 Glucose (Glucose 40% Gel 15 Gm Tube) 15 - 30 gm PO UD PRN; Protocol PRN Reason: Hypoglycemia Protocol Stop: 10/12/25 11:59 Glucose (Glucose 10 Tab/Tube) 4 - 8 tab PO UD PRN; Protocol PRN Reason: Hypoglycemia Protocol Stop: 10/12/25 11:59 Hydroxyzine HCl (Hydroxyzine Hcl 25 Mg Tab) 50 mg PO HSZ PRN PRN Reason: Insomnia Stop: 10/11/25 23:47 Hydroxyzine HCl (Hydroxyzine Hcl 25 Mg Tab) 25 mg PO Q4H PRN PRN Reason: Anxiety Stop: 10/11/25 23:47 Last Admin: 09/12/25 21:59 Dose: 25 mg Insulin Glargine (Lantus Per Unit Charge) 38 units SQ [facility] Stop: 10/12/25 21:59 Last Admin: 09/14/25 22:12 Dose: 38 units Lamotrigine (Lamotrigine 25 Mg Tab) 25 mg PO [facility]; Protocol Stop: 10/13/25 14:29 Last Admin: 09/14/25 08:43 Dose: 25 mg Lurasidone HCl ([facility] Hcl 20 Mg Tab) [facility] Stop: 10/12/25 17:14 Last Admin: 09/14/25 18:00 Dose: 40 mg Magnesium Hydroxide (Magnesium Hydroxide Susp 30 Ml Udc) 30 ml PO DAILY PRN PRN Reason: Constipation Stop: 10/11/25 23:47 Mirtazapine (Mirtazapine Tab 15 Mg Tab) 15 mg PO [facility] Stop: 10/12/25 21:59 Last Admin: 09/14/25 22:10 Dose: 15 mg Miscellaneous (Remove Nicoderm Patch) 1 each N/A DAILY@0859 [facility] Stop: 10/13/25 08:58 Last Admin: 09/14/25 08:42 Dose: Not Given Miscellaneous (Carbohydrates For Hypoglycemia ) 15 - 30 gm PO UD PRN PRN Reason: Hypoglycemia Treatment Stop: 10/12/25 11:59 Montelukast Sodium (Montelukast Sodium 10 Mg Tablet) 10 mg PO HS [facility]IN[facility] Stop: 10/12/25 21:59 Last Admin: 09/14/25 22:10 Dose: 10 mg Nicotine (Nicotine 14 Mg/24 Hr Patch) 1 patch TD QAM [facility] Stop: 10/12/25 08:59 Last Admin: 09/14/25 08:42 Dose: 1 patch Nicotine Polacrilex (Nicotine Polacrilex 2 Mg Gum) 2 piece MT Q2H PRN PRN Reason: Nicotine Withdrawal Stop: 10/13/25 10:39 Oxybutynin Chloride (Oxybutynin Chloride 5 Mg Tab) 5 mg PO DAILY [facility] Stop: 10/12/25 11:44 Last Admin: 09/14/25 08:43 Dose: 5 mg Propranolol HCl (Propranolol Hcl 20 Mg Tab) 20 mg PO TID [facility] Stop: 10/14/25 20:59 Last Admin: 09/14/25 22:10 Dose: 20 mg Sodium Chloride (Sodium Chloride 0.65% Na Soln 45 Ml ([place])) 1 - 2 sprays NA PRN PRN PRN Reason: Nasal Dryness/Congestion Stop: 10/11/25 23:47 Venlafaxine HCl (Venlafaxine Hcl Xr 75 Mg Capxr) 75 mg PO QAM [facility] Stop: 10/15/25 08:59 Venlafaxine HCl (Venlafaxine Hcl Xr 37.5 Mg Capxr) 37.5 mg PO QAM [facility] Stop: 10/15/25 08:59 Vitamin D (Cholecalciferol 125 Mcg (5,000 Units) Tab) 125 mcg PO QAM [facility] Stop: 10/12/25 11:59 Last Admin: 09/14/25 08:43 Dose: 125 mcg Mental Health & Subst Abuse Tx Psychiatrist Name of Psychiatrist: [facility] Psychiatrist's Date Of Appointment With Psychiatric Provider: 09/21/25 Therapist Name of Therapist: [facility] Therapist's Date of Therapist Appointment: TBD-new intake required Post Discharge Appointments Primary Care Physician Name Of [facility] Doctor[facility] Contact Information Discharge Discharge Address: [address] [place] [address] [address], [place] [id number] (1) MDD (major depressive disorder), recurrent episode, severe Psychotic features: without psychotic features Qualified Code(s): F33.2 - Major depressive disorder, recurrent severe without psychotic features
[2025-09-15] MEDS: VENLAFAXINE HCL XR 37.5 MG CAPXR PO SCH (09:25)
[2025-09-15] MEDS: VENLAFAXINE HCL XR 75 MG CAPXR PO SCH (09:25)
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
[2025-09-16] MEDS: BISMUTH SUBSALICYLATE 262 MG CHEW PO PRN (10:46)
[2025-09-16] MEDS: CARBOHYDRATES FOR HYPOGLYCEMIA PO PRN (20:36)
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
[2025-09-17] MEDS: LANTUS PER UNIT CHARGE SQ SCH (22:26)
[2025-09-18] MEDS: VENLAFAXINE HCL XR 37.5 MG CAPXR PO SCH (08:40)
[2025-09-18] MEDS: lamoTRIgine 25 MG TAB PO SCH (08:40)
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
[2025-09-18] MEDS: PROPRANOLOL HCL 10 MG TAB PO SCH (22:33)
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
[2025-09-19] MEDS: PROPRANOLOL HCL 10 MG TAB PO SCH (14:10)
[2025-09-19] MEDS: IBUPROFEN 200 MG TAB PO PRN (16:46)
[2025-09-19] MEDS: REMOVE NICODERM PATCH SCH (21:40)
[2025-09-19] MEDS ORDERED: PHARMACY GLYCEMIC MGMT CONSULT PRN (22:00)
[2025-09-19] MEDS: LANTUS PER UNIT CHARGE SQ SCH (22:23)
[2025-09-20] MEDS: INSULIN ASPART PER UNIT CHARGE SC SCH (13:15)
--- NOTE | 2025-09-20 13:30 | Pharmacy Report ---
Pharmacy Glycemic Short Note 2 - Date of Service September 20, 2025 - Glycemic Short BSG Results (Last 24 hours): 09/19/25 09/19/25 09/19/25 17:02 20:35 20:53 POC Glucose 93 66 L* 63 L* 09/19/25 09/20/25 09/20/25 20:56 08:28 11:58 POC Glucose 82 112 H 181 H OUTPATIENT ANTIDIABETIC REGIMEN: * Basaglar 38 units at HS * glipizide 5mg po daily with dinner HbA1c: 8.7% on 08/26/25 ASSESSMENT: * Jennifer is a 29 year of female who was admitted for recurrence of SI. Pharmacy was consulted last evening for glycemic management. * BSG at HS last evening was 63mg/dL. She was previously ordered 32 units of Lantus at HS, but that was decreased by ~50% last evening. * Fasting BSG was 112mg/dL this morning. A conservative bolus insulin regimen was started utilizing only the correction factor (no carb coverage) incase her BSG starts to rise above goal. * She continues on her home dose of glipizide as well. PLAN FOR INPATIENT GLYCEMIC CONTROL: * Hold outpatient diabetes medications * Basal insulin * Lantus 15 units SQ at HS * Bolus insulin * NovoLog per scale ACHS or Q6hrs while NPO * Goal Range: Low 120 mg/dL - High 150 mg/dL * Correction Factor: 30 mg/dL/unit * Nutritional / Prandial insulin per carb ratio: NONE
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
[2025-09-21] MEDS: glipiZIDE 5 MG TAB PO SCH (12:29)
--- NOTE | 2025-09-21 12:31 | Psychiatric Progress Note ---
Date of Service September 21, 2025 Impression / Recommendations Impression Jennifer Roach is a 29-year-old female, with significant history of major depressive disorder recurrent, generalized anxiety disorder and PTSD. She is being readmitted for recurrence of suicidal ideation with a plan to overdose, which occurred rapidly after discharge from this unit earlier this month. A: Patient presented and improved night of sleep. Continues to endorse self- harm thoughts. Endorsed restlessness and possibly because there are discontinuation of Effexor will continue to monitor. Overall, I spent a total of 25 minutes on this patient's care, including review of chart/records, direct evaluation of the patient, ordering medication, coordination with nursing, interdisciplinary team meeting, and documentation. (1) MDD (major depressive disorder), recurrent episode, severe: (2) Post traumatic stress disorder (PTSD): (3) Generalized anxiety disorder with panic attacks: Plan 09/21/2025: Effexor d/c 09/20/2025: Continue medications and treatment plan 09/19/2025: Increase propranolol to 10 mg 3 times daily 09/18/2025: Decrease propranolol to 10 mg twice daily Start clonidine 0.1 mg at bedtime 09/17/25 Increase Cymbalta to 60 mg starting tomorrow decrease Effexor XR to 37.5 mg, discontinue after 3 days increase Lamictal to 50 mg daily 09/16/25 Start Protonix 40 mg daily 09/15/25: Starting tomorrow, Effexor 75 mg and Cymbalta 40 mg continue other medications without change, and encourage engagement in milieu 09/14/25: discontinue clonidine increase propranolol to 20 mg 3 times daily Cymbalta 20 mg x 1 today, then 30 mg nightly starting tomorrow decrease Effexor to 112.5 mg daily starting in the morning. Continue Latuda, Lamictal and mirtazapine without change for now. 09/13/25: Change propranolol to 20 mg twice daily in a.m. and 2 PM. Start Lamictal 25 mg daily Continue other medications without change. Encouraged engagement with staff and groups, especially if thoughts to harm self worsen. 09/12/25: Admit on a 201 Increase Latuda to 40 mg with dinner Continue Effexor XR 150 mg, mirtazapine 15 mg nightly. Continue propranolol 10 mg 3 times daily for anxiety, and consider increasing to 20 mg if blood pressures improve and remain stable. encourage p.o. hydration For now, continue clonidine 0.1 mg nightly. she previously tolerated taking both propranolol and clonidine during her last admission. Okay to continue Klonopin as needed, but I would not recommend increasing it Discussed the possibility of adding Topamax in the future, but avoiding now due to polypharmacy. It could have the additional benefit of migraine prophylaxis in addition to some mood stabilizing and anxiolytic properties Home medications for physical health indications (including insulin) were also continued 15-minute checks for suicide risk precaution Encouraged participation in the milieu, and group therapy Inventory Assets Strengths: Able to utilize safety plan. Gave her mother all her medications and past self-harm items upon discharge last time. Did not act on self-harm or suicidal thoughts prior to admission. Reached out for help when symptoms worsened. Self presented to the emergency room and admitted on a voluntary status Needs: medication adjustment, further coping skills development Suicide Risk Level Suicide Risk Level: Moderate (q15 min suicide checks) Suicide Risk Level Comments: acute risk is moderate given active suicidal ideation. She did have a plan prior to admission. Denies any plan or intent to harm herself now. she also reports feeling safe in the hospital and is able to ask for support if symptoms worsen. Risk Factors Assessment Male: No : Yes Do You Have Access To A Gun?: No Health Problems: Yes Mental Health Diagnoses: Yes Substance Use Disorders: No Previous Attempt: No Family History of Suicide: Yes Previous Psychiatric Hospitalization: Yes Hopelessness: Yes Protective Factors Assessment : No Responsible for Young Children: No Employed: Yes Stable Relationships: Yes Supportive Family: Yes Good Rapport with Provider: Yes Interval History Identifying Information Jennifer Roach is a 29-year-old female, with significant history of major depressive disorder recurrent, generalized anxiety disorder and PTSD. She is being readmitted for recurrence of suicidal ideation with a plan to overdose, which occurred rapidly after discharge from this unit earlier this month. Chief Complaint Anxiety, self harm thoughts Review of Systems Sleep Information Total Hours of Sleep: 7.75 Meal Information Percent Meal Consumed - Breakfast: 100 Percent Meal Consumed - Lunch: 75 Percent Meal Consumed - Dinner: 75 Subjective Subjective Patient was seen & assessed and interval progress reviewed with treatment team nursing and social work Reported to nursing she was having a good day. Rated mood 3 out of 10 last night. Slept 7.25 hours. On interview she reports being more restless. Says that she slept well however it was disrupted. No nightmares. Reports continued self-harm thoughts. We discussed being able to express emotions and why people have self-harm thoughts as a way to cope. She reports figuring out the next steps of her life including what she wants to do in the current relationship she wants to have however she is conflicted about ending relationships even though they are hurting her more than helping her. Physical Exam Mental Examination Appearance: Well Groomed Eye Contact: Breaks Contact Motor Behavior: Unremarkable Speech: Normal and Soft Mood: Depressed Affect: Calm and Constricted Thought Process: Intact Hallucinations: None Insight: Fair Judgement: Fair Vital Signs (Past 24 Hours) Last Vital Signs Temp 36.6 C 09/21/25 06:06 Pulse 80 09/21/25 06:07 Resp 16 09/21/25 06:06 BP 120/85 09/21/25 06:07 Pulse Ox 97 09/20/25 06:48 O2 Del Method Room Air 09/20/25 06:48 A physical exam was performed in the ED by Zach Funes for the purposes of medical clearance. I accept that physical as correct and adequate for the purposes of the inpatient physical exam. Results & Data (U) Laboratory Results Laboratory Results - last 24 hr 09/20/25 09/20/25 09/21/25 17:24 20:41 08:48 POC Glucose 148 H 86 130 H 09/21/25 12:23 POC Glucose 176 H Current Inpatient Medications Current Inpatient Medications: Current Inpatient Medications Acetaminophen (Acetaminophen 325 Mg Tab) 650 mg PO Q4H PRN PRN Reason: Headache or Minor Fever Stop: 10/11/25 23:47 Al Hydrox/Mg Hydrox/Simethicone (Aluminum/Magnesium Susp 30 Ml Udc) 30 ml PO Q4H PRN PRN Reason: GI Upset Stop: 10/11/25 23:47 Albuterol (Albuterol Hfa 8 Gm Inhaler) 2 puffs INH QIDR PRN PRN Reason: Shortness Of Breath Or Wheezing Stop: 10/12/25 11:46 Bismuth Subsalicylate (Bismuth Subsalicylate 262 Mg Chew) 2 tab PO Q30M PRN PRN Reason: Loose Stool/Diarrhea Stop: 10/11/25 23:47 Last Admin: 09/16/25 10:46 Dose: 2 tab Cetirizine HCl (Cetirizine Hcl 10 Mg Tablet) 10 mg PO BID CORINNE Stop: 10/12/25 13:09 Last Admin: 09/21/25 09:07 Dose: 10 mg Clonazepam (Clonazepam 1 Mg Tab) 1 mg PO BID PRN PRN Reason: Severe Anxiety Stop: 10/11/25 23:46 Last Admin: 09/20/25 21:43 Dose: 1 mg Clonidine HCl (Clonidine Hcl 0.1 Mg Tab) 0.1 mg PO HS CORINNE Stop: 10/18/25 21:59 Last Admin: 09/20/25 21:44 Dose: 0.1 mg Dextrose (Dextrose 50% 50 Ml Syringe) 25 - 50 ml IV UD PRN; Protocol PRN Reason: Hypoglycemia Protocol Stop: 10/12/25 11:59 Duloxetine HCl (Duloxetine Hcl 60 Mg Cap) 60 mg PO HS CORINNE Stop: 10/18/25 21:59 Last Admin: 09/20/25 21:44 Dose: 60 mg Dupilumab (Dupilumab 300 Mg/2 Ml Syr) 300 mg SQ Q14D@1600 CORINNE; Protocol Stop: 10/19/25 15:59 Last Admin: 09/19/25 15:40 Dose: 300 mg Glipizide (Glipizide 5 Mg Tab) 5 mg PO QDB CORINNE Stop: 10/21/25 09:29 Last Admin: 09/21/25 12:29 Dose: 5 mg Glucagon (Glucagon For Inj 1 Mg Vial) 1 mg SQ UD PRN; Protocol PRN Reason: Hypoglycemia Protocol Stop: 10/12/25 11:59 Glucose (Glucose 40% Gel 15 Gm Tube) 15 - 30 gm PO UD PRN; Protocol PRN Reason: Hypoglycemia Protocol Stop: 10/12/25 11:59 Glucose (Glucose 10 Tab/Tube) 4 - 8 tab PO UD PRN; Protocol PRN Reason: Hypoglycemia Protocol Stop: 10/12/25 11:59 Hydroxyzine HCl (Hydroxyzine Hcl 25 Mg Tab) 50 mg PO HSZ PRN PRN Reason: Insomnia Stop: 10/11/25 23:47 Hydroxyzine HCl (Hydroxyzine Hcl 25 Mg Tab) 25 mg PO Q4H PRN PRN Reason: Anxiety Stop: 10/11/25 23:47 Last Admin: 09/15/25 19:35 Dose: 25 mg Ibuprofen (Ibuprofen 200 Mg Tab) 400 mg PO Q6H PRN PRN Reason: Pain or Fever Stop: 10/19/25 16:08 Last Admin: 09/19/25 16:46 Dose: 400 mg Insulin Aspart (Insulin Aspart Per Unit Charge) 0 units SC [facility] Stop: 10/20/25 11:59 Last Admin: 09/21/25 09:04 Dose: Not Given Insulin Glargine (Lantus Per Unit Charge) 10 units SQ [facility] Stop: 10/21/25 21:59 Lamotrigine (Lamotrigine 25 Mg Tab) 50 mg PO [facility]; Protocol Stop: 10/18/25 08:59 Last Admin: 09/21/25 09:08 Dose: 50 mg Lurasidone HCl ([facility]idone Hcl 20 Mg Tab) [facility] Stop: 10/12/25 17:14 Last Admin: 09/20/25 17:28 Dose: 40 mg Magnesium Hydroxide (Magnesium Hydroxide Susp 30 Ml Udc) 30 ml PO DAILY PRN PRN Reason: Constipation Stop: 10/11/25 23:47 Mirtazapine (Mirtazapine Tab 15 Mg Tab) 15 mg PO [facility] Stop: 10/12/25 21:59 Last Admin: 09/20/25 21:43 Dose: 15 mg Miscellaneous (Carbohydrates For Hypoglycemia ) 15 - 30 gm PO UD PRN PRN Reason: Hypoglycemia Treatment Stop: 10/12/25 11:59 Last Admin: 09/19/25 20:42 Dose: 15 gm Miscellaneous (Remove Nicoderm Patch) 1 each N/A DAILY@2100 [facility] Stop: 10/19/25 20:59 Last Admin: 09/20/25 21:44 Dose: 1 each Miscellaneous Information (Pharmacy Glycemic Mgmt Consult) 1 each N/A UD PRN; Protocol PRN Reason: Consult Stop: 10/19/25 21:59 Montelukast Sodium (Montelukast Sodium 10 Mg Tablet) 10 mg PO [facility] Stop: 10/12/25 21:59 Last Admin: 09/20/25 21:44 Dose: 10 mg Nicotine (Nicotine 14 Mg/24 Hr Patch) 1 patch TD [facility] Stop: 10/12/25 08:59 Last Admin: 09/21/25 09:14 Dose: 1 patch Nicotine Polacrilex (Nicotine Polacrilex 2 Mg Gum) 2 piece MT Q2H PRN PRN Reason: Nicotine Withdrawal Stop: 10/13/25 10:39 Oxybutynin Chloride (Oxybutynin Chloride 5 Mg Tab) 5 mg PO DAILY [facility]IN[facility] Stop: 10/12/25 11:44 Last Admin: 09/21/25 09:07 Dose: 5 mg Pantoprazole Sodium (Pantoprazole 40 Mg Tab) 40 mg PO QAM [facility]IN[facility] Stop: 10/16/25 15:29 Last Admin: 09/21/25 09:07 Dose: 40 mg Propranolol HCl (Propranolol Hcl 10 Mg Tab) 10 mg PO TID CORINNE Stop: 10/19/25 13:59 Last Admin: 09/21/25 09:07 Dose: 10 mg Sodium Chloride (Sodium Chloride 0.65% Na Soln 45 Ml ([place])) 1 - 2 sprays NA PRN PRN PRN Reason: Nasal Dryness/Congestion Stop: 10/11/25 23:47 Vitamin D (Cholecalciferol 125 Mcg (5,000 Units) Tab) 125 mcg PO QAM CORINNE Stop: 10/12/25 11:59 Last Admin: 09/21/25 09:08 Dose: 125 mcg Mental Health & Subst Abuse Tx Psychiatrist Name of Psychiatrist: LEFTY Psychiatrist's Date Of Appointment With Psychiatric Provider: 10/04/25 Time of Appointment with Psychiatrist: 12PM Psychiatric Appointment Comment: In person. [address] [facility] [place] [id number] Therapist Name of Therapist: On license of [facility] Kim Maurice Therapist's Date of Therapist Appointment: 09/27/25 Time of Therapist Appointment: 10AM Therapy Appointment Comment: New intake appt, virtual appt Post Discharge Appointments Primary Care Physician Name Of Family Doctor/PCP: Carmen Martinez - [facility] Other #1: Name of Aftercare Appointment: Family Services (counselor Cecelia) Phone Number of Aftercare Appointment: [phone] Date of Aftercare Appointment: 10/07/25 Time of Aftercare Appointment: 12PM Aftercare Appointment Comment: In person. [address] [place] [id number] #2: Name of Aftercare Appointment: [facility] - [address], [place] Phone Number of Aftercare Appointment: Aftercare Appointment Comment: Contact them directly to engage in their next in person IOP program Contact Information Discharge Discharge Address: [address], [place] [id number] (1) MDD (major depressive disorder), recurrent episode, severe Psychotic features: without psychotic features Qualified Code(s): F33.2 - Major depressive disorder, recurrent severe without psychotic features
--- NOTE | 2025-09-21 13:30 | Pharmacy Report ---
Pharmacy Glycemic Short Note 2 - Date of Service September 21, 2025 - Glycemic Short BSG Results (Last 24 hours): 09/20/25 09/20/25 09/21/25 17:24 20:41 08:48 POC Glucose 148 H 86 130 H 09/21/25 12:23 POC Glucose 176 H OUTPATIENT ANTIDIABETIC REGIMEN: * Basaglar 38 units at HS * glipizide 5mg po daily with dinner HbA1c: 8.7% on 08/26/25 ASSESSMENT: 09/21: * Jennifer received a total of 17 units of insulin yesterday (15 units were basal and 2 units were bolus). BSGs were [phone]/dL * Fasting BSG was 130mg/dL. Will reduce HS dose of Lantus and shift glipizide to be given with breakfast instead of with dinner as HS BSGs have been below goal. * Will loosen CF of bolus insulin as well. 09/20: * Jennifer is a 29 year of female who was admitted for recurrence of SI. Pharmacy was consulted last evening for glycemic management. * BSG at HS last evening was 63mg/dL. She was previously ordered 32 units of Lantus at HS, but that was decreased by ~50% last evening. * Fasting BSG was 112mg/dL this morning. A conservative bolus insulin regimen was started utilizing only the correction factor (no carb coverage) incase her BSG starts to rise above goal. * She continues on her home dose of glipizide as well. PLAN FOR INPATIENT GLYCEMIC CONTROL: * Hold outpatient diabetes medications * Basal insulin * Lantus 10 units SQ at HS * Bolus insulin * NovoLog per scale ACHS or Q6hrs while NPO * Goal Range: Low 120 mg/dL - High 150 mg/dL * Correction Factor: 40 mg/dL/unit * Nutritional / Prandial insulin per carb ratio: NONE
[2025-09-21] MEDS: LANTUS PER UNIT CHARGE SQ SCH (22:08)
[2025-09-22] MEDS: glipiZIDE 5 MG TAB PO SCH (08:36)
[2025-09-22] MEDS: ONDANSETRON 4 MG OD TAB PO PRN (12:47)
--- NOTE | 2025-09-22 15:22 | Psychiatric Progress Note ---
Date of Service September 22, 2025 Impression / Recommendations Impression Jennifer Roach is a 29-year-old female, with significant history of major depressive disorder recurrent, generalized anxiety disorder and PTSD. She is being readmitted for recurrence of suicidal ideation with a plan to overdose, which occurred rapidly after discharge from this unit earlier this month. A: Presents ongoing sleep disruptions and requesting additional sleep aid. Discussed risk of dependency on Z drugs and benefit for temporary use. Plan to start zolpidem at night; medication side effects and adverse effects discussed with patient and agreeable. Educated patient about her medications, common side effects, and expected efficacy. Ongoing self-harm thoughts endorsed. Overall, I spent a total of 35 minutes on this patient's care, including review of chart/records, direct evaluation of the patient, ordering medication, coordination with nursing, interdisciplinary team meeting, and documentation. (1) MDD (major depressive disorder), recurrent episode, severe: (2) Post traumatic stress disorder (PTSD): (3) Generalized anxiety disorder with panic attacks: Plan 09/22/2025: Start zolpidem 10 mg at bedtime 09/21/2025: Effexor d/c 09/20/2025: Continue medications and treatment plan 09/19/2025: Increase propranolol to 10 mg 3 times daily 09/18/2025: Decrease propranolol to 10 mg twice daily Start clonidine 0.1 mg at bedtime 09/17/25 Increase Cymbalta to 60 mg starting tomorrow decrease Effexor XR to 37.5 mg, discontinue after 3 days increase Lamictal to 50 mg daily 09/16/25 Start Protonix 40 mg daily 09/15/25: Starting tomorrow, Effexor 75 mg and Cymbalta 40 mg continue other medications without change, and encourage engagement in milieu 09/14/25: discontinue clonidine increase propranolol to 20 mg 3 times daily Cymbalta 20 mg x 1 today, then 30 mg nightly starting tomorrow decrease Effexor to 112.5 mg daily starting in the morning. Continue Latuda, Lamictal and mirtazapine without change for now. 09/13/25: Change propranolol to 20 mg twice daily in a.m. and 2 PM. Start Lamictal 25 mg daily Continue other medications without change. Encouraged engagement with staff and groups, especially if thoughts to harm self worsen. 09/12/25: Admit on a 201 Increase Latuda to 40 mg with dinner Continue Effexor XR 150 mg, mirtazapine 15 mg nightly. Continue propranolol 10 mg 3 times daily for anxiety, and consider increasing to 20 mg if blood pressures improve and remain stable. encourage p.o. hydration For now, continue clonidine 0.1 mg nightly. she previously tolerated taking both propranolol and clonidine during her last admission. Okay to continue Klonopin as needed, but I would not recommend increasing it Discussed the possibility of adding Topamax in the future, but avoiding now due to polypharmacy. It could have the additional benefit of migraine prophylaxis in addition to some mood stabilizing and anxiolytic properties Home medications for physical health indications (including insulin) were also continued 15-minute checks for suicide risk precaution Encouraged participation in the milieu, and group therapy Inventory Assets Strengths: Able to utilize safety plan. Gave her mother all her medications and past self-harm items upon discharge last time. Did not act on self-harm or suicidal thoughts prior to admission. Reached out for help when symptoms worsened. Self presented to the emergency room and admitted on a voluntary status Needs: medication adjustment, further coping skills development Suicide Risk Level Suicide Risk Level: Moderate (q15 min suicide checks) Suicide Risk Level Comments: acute risk is moderate given active suicidal ideation. She did have a plan prior to admission. Denies any plan or intent to harm herself now. she also reports feeling safe in the hospital and is able to ask for support if symptoms worsen. Risk Factors Assessment Male: No : Yes Do You Have Access To A Gun?: No Health Problems: Yes Mental Health Diagnoses: Yes Substance Use Disorders: No Previous Attempt: No Family History of Suicide: Yes Previous Psychiatric Hospitalization: Yes Hopelessness: Yes Protective Factors Assessment : No Responsible for Young Children: No Employed: Yes Stable Relationships: Yes Supportive Family: Yes Good Rapport with Provider: Yes Interval History Identifying Information Jennifer Roach is a 29-year-old female, with significant history of major depressive disorder recurrent, generalized anxiety disorder and PTSD. She is being readmitted for recurrence of suicidal ideation with a plan to overdose, which occurred rapidly after discharge from this unit earlier this month. Chief Complaint Anxiety, insomnia Review of Systems Sleep Information Total Hours of Sleep: 7 Meal Information Percent Meal Consumed - Breakfast: 100 Percent Meal Consumed - Lunch: 40 Percent Meal Consumed - Dinner: 75 Subjective Subjective Patient was seen & assessed and interval progress reviewed with treatment team nursing and social work Overnight reports having broken sleep. Complains of restlessness and being "overstimulated". Unable to tolerate the noise in public areas. Reports ongoing self-harm thoughts and some passive suicidal ideation. Reports feeling" sadness" and was able to cry it out yesterday. Notes relief after she was able to cry. Denies any history of sleepwalking or sleep related behaviors. Asking questions about medications and side effects. Physical Exam Mental Examination Appearance: Well Groomed Eye Contact: Breaks Contact Motor Behavior: Unremarkable Speech: Normal and Soft Mood: Depressed Affect: Calm and Constricted Thought Process: Intact Hallucinations: None Insight: Fair Judgement: Fair Vital Signs (Past 24 Hours) Last Vital Signs Temp 36.6 C 09/22/25 06:16 Pulse 71 09/22/25 14:06 Resp 22 09/22/25 14:06 BP 101/68 09/22/25 14:06 Pulse Ox 97 09/22/25 14:06 O2 Del Method Room Air 09/22/25 14:06 A physical exam was performed in the ED by Zach Funes for the purposes of medical clearance. I accept that physical as correct and adequate for the purposes of the inpatient physical exam. Results & Data ([facility]) Laboratory Results Laboratory Results - last 24 hr 09/21/25 09/21/25 09/22/25 17:15 20:35 08:35 POC Glucose 89 112 H 131 H 09/22/25 12:26 POC Glucose 126 H Current Inpatient Medications Current Inpatient Medications: Current Inpatient Medications Acetaminophen (Acetaminophen 325 Mg Tab) 650 mg PO Q4H PRN PRN Reason: Headache or Minor Fever Stop: 10/11/25 23:47 Al Hydrox/Mg Hydrox/Simethicone (Aluminum/Magnesium Susp 30 Ml Udc) 30 ml PO Q4H PRN PRN Reason: GI Upset Stop: 10/11/25 23:47 Albuterol (Albuterol Hfa 8 Gm Inhaler) 2 puffs INH QIDR PRN PRN Reason: Shortness Of Breath Or Wheezing Stop: 10/12/25 11:46 Bismuth Subsalicylate (Bismuth Subsalicylate 262 Mg Chew) 2 tab PO Q30M PRN PRN Reason: Loose Stool/Diarrhea Stop: 10/11/25 23:47 Last Admin: 09/16/25 10:46 Dose: 2 tab Cetirizine HCl (Cetirizine Hcl 10 Mg Tablet) 10 mg PO BID CORIN[facility] Stop: 10/12/25 13:09 Last Admin: 09/22/25 09:02 Dose: 10 mg Clonazepam (Clonazepam 1 Mg Tab) 1 mg PO BID PRN PRN Reason: Severe Anxiety Stop: 10/11/25 23:46 Last Admin: 09/22/25 10:40 Dose: 1 mg Clonidine HCl (Clonidine Hcl 0.1 Mg Tab) 0.1 mg PO HS CORIN[facility] Stop: 10/18/25 21:59 Last Admin: 09/21/25 22:09 Dose: 0.1 mg Dextrose (Dextrose 50% 50 Ml Syringe) 25 - 50 ml IV UD PRN; Protocol PRN Reason: Hypoglycemia Protocol Stop: 10/12/25 11:59 Duloxetine HCl (Duloxetine Hcl 60 Mg Cap) 60 mg PO HS [facility] Stop: 10/18/25 21:59 Last Admin: 09/21/25 22:09 Dose: 60 mg Dupilumab (Dupilumab 300 Mg/2 Ml Syr) 300 mg SQ Q14D@1600 [facility]INNE; Protocol Stop: 10/19/25 15:59 Last Admin: 09/19/25 15:40 Dose: 300 mg Glipizide (Glipizide 5 Mg Tab) 5 mg PO 0730 [facility] Stop: 10/22/25 07:29 Last Admin: 09/22/25 08:36 Dose: 5 mg Glucagon (Glucagon For Inj 1 Mg Vial) 1 mg SQ UD PRN; Protocol PRN Reason: Hypoglycemia Protocol Stop: 10/12/25 11:59 Glucose (Glucose 40% Gel 15 Gm Tube) 15 - 30 gm PO UD PRN; Protocol PRN Reason: Hypoglycemia Protocol Stop: 10/12/25 11:59 Glucose (Glucose 10 Tab/Tube) 4 - 8 tab PO UD PRN; Protocol PRN Reason: Hypoglycemia Protocol Stop: 10/12/25 11:59 Hydroxyzine HCl (Hydroxyzine Hcl 25 Mg Tab) 50 mg PO HSZ PRN PRN Reason: Insomnia Stop: 10/11/25 23:47 Hydroxyzine HCl (Hydroxyzine Hcl 25 Mg Tab) 25 mg PO Q4H PRN PRN Reason: Anxiety Stop: 10/11/25 23:47 Last Admin: 09/15/25 19:35 Dose: 25 mg Ibuprofen (Ibuprofen 200 Mg Tab) 400 mg PO Q6H PRN PRN Reason: Pain or Fever Stop: 10/19/25 16:08 Last Admin: 09/19/25 16:46 Dose: 400 mg Insulin Aspart (Insulin Aspart Per Unit Charge) 0 units SC [facility] Stop: 10/20/25 11:59 Last Admin: 09/22/25 12:40 Dose: Not Given Insulin Glargine (Lantus Per Unit Charge) 10 units SQ [facility] Stop: 10/21/25 21:59 Last Admin: 09/21/25 22:08 Dose: 10 units Lamotrigine (Lamotrigine 25 Mg Tab) 50 mg PO [facility]; Protocol Stop: 10/18/25 08:59 Last Admin: 09/22/25 09:03 Dose: 50 mg Lurasidone HCl (Lurasidone Hcl 20 Mg Tab) [facility] Stop: 10/12/25 17:14 Last Admin: 09/21/25 17:16 Dose: 40 mg Magnesium Hydroxide (Magnesium Hydroxide Susp 30 Ml Udc) 30 ml PO DAILY PRN PRN Reason: Constipation Stop: 10/11/25 23:47 Mirtazapine (Mirtazapine Tab 15 Mg Tab) 15 mg PO [facility] Stop: 10/12/25 21:59 Last Admin: 09/21/25 22:09 Dose: 15 mg Miscellaneous (Carbohydrates For Hypoglycemia ) 15 - 30 gm PO UD PRN PRN Reason: Hypoglycemia Treatment Stop: 10/12/25 11:59 Last Admin: 09/19/25 20:42 Dose: 15 gm Miscellaneous (Remove Nicoderm Patch) 1 each N/A DAILY@2100 [facility] Stop: 10/19/25 20:59 Last Admin: 09/21/25 22:11 Dose: 1 each Miscellaneous Information (Pharmacy Glycemic Mgmt Consult) 1 each N/A UD PRN; Protocol PRN Reason: Consult Stop: 10/19/25 21:59 Montelukast Sodium (Montelukast Sodium 10 Mg Tablet) 10 mg PO [facility] Stop: 10/12/25 21:59 Last Admin: 09/21/25 22:09 Dose: 10 mg Nicotine (Nicotine 14 Mg/24 Hr Patch) 1 patch TD [facility] Stop: 10/12/25 08:59 Last Admin: 09/22/25 09:04 Dose: 1 patch Nicotine Polacrilex (Nicotine Polacrilex 2 Mg Gum) 2 piece MT Q2H PRN PRN Reason: Nicotine Withdrawal Stop: 10/13/25 10:39 Ondansetron HCl (Ondansetron 4 Mg Od Tab) 4 mg PO Q4H PRN PRN Reason: Nausea And Vomiting Stop: 10/22/25 12:38 Last Admin: 09/22/25 12:47 Dose: 4 mg Oxybutynin Chloride (Oxybutynin Chloride 5 Mg Tab) 5 mg PO DAILY [facility] Stop: 10/12/25 11:44 Last Admin: 09/22/25 09:03 Dose: 5 mg Pantoprazole Sodium (Pantoprazole 40 Mg Tab) 40 mg PO QAM [facility] Stop: 10/16/25 15:29 Last Admin: 09/22/25 09:07 Dose: 40 mg Propranolol HCl (Propranolol Hcl 10 Mg Tab) 10 mg PO TID [facility] Stop: 10/19/25 13:59 Last Admin: 09/22/25 14:07 Dose: 10 mg Sodium Chloride (Sodium Chloride 0.65% Na Soln 45 Ml ([place])) 1 - 2 sprays NA PRN PRN PRN Reason: Nasal Dryness/Congestion Stop: 10/11/25 23:47 Vitamin D (Cholecalciferol 125 Mcg (5,000 Units) Tab) 125 mcg PO QAM [facility] Stop: 10/12/25 11:59 Last Admin: 09/22/25 09:02 Dose: 125 mcg Zolpidem Tartrate (Zolpidem Tartrate 5 Mg Tab) 10 mg PO HS [facility] Stop: 10/22/25 21:59 Mental Health & Subst Abuse Tx Psychiatrist Name of Psychiatrist: LEFTY Psychiatrist's Date Of Appointment With Psychiatric Provider: 10/04/25 Time of Appointment with Psychiatrist: 12PM Psychiatric Appointment Comment: In person. [address] [facility] [id number] Therapist Name of Therapist: [facility] KATHIE - Kim Maurice Therapist's Date of Therapist Appointment: 09/27/25 Time of Therapist Appointment: 10AM Therapy Appointment Comment: New intake appt, virtual appt Post Discharge Appointments Primary Care Physician Name Of Family Doctor/PCP: Carmen Martinez - [facility] Other #1: Name of Aftercare Appointment: Family Services (counselor Cecelia) Phone Number of Aftercare Appointment: [phone] Date of Aftercare Appointment: 10/07/25 Time of Aftercare Appointment: 12PM Aftercare Appointment Comment: In person. [address] [facility] [place] [address] #2: Name of Aftercare Appointment: [facility] - [address], [place] Phone Number of Aftercare Appointment: Aftercare Appointment Comment: Contact them directly to engage in their next in person IOP program Contact Information Discharge Discharge Address: [address] [place] [address] [address], [place] [address] (1) MDD (major depressive disorder), recurrent episode, severe Psychotic features: without psychotic features Qualified Code(s): F33.2 - Major depressive disorder, recurrent severe without psychotic features
[2025-09-22] MEDS: ZOLPIDEM TARTRATE 5 MG TAB PO SCH (21:13)
[2025-09-23] MEDS: ALUMINUM/MAGNESIUM SUSP 30 ML UDC PO PRN (11:23)
--- NOTE | 2025-09-23 11:51 | Psychiatric Progress Note ---
Date of Service September 23, 2025 Impression / Recommendations Impression Jennifer Roach is a 29-year-old female, with significant history of major depressive disorder recurrent, generalized anxiety disorder and PTSD. She is being readmitted for recurrence of suicidal ideation with a plan to overdose, which occurred rapidly after discharge from this unit earlier this month. A: Recent nausea and vomiting and possibly due to effexor withdrawal however unclear. Will restart low dose Effexor and assess for improvement. Zolpidem helpful for sleep with no significant disruptions overnight, plan to continue. Discussed lamotrigine and OCP interactions and reassured patient. SH thoughts lessening. Overall, I spent a total of 35 minutes on this patient's care, including review of chart/records, direct evaluation of the patient, ordering medication, coordination with nursing, interdisciplinary team meeting, and documentation. (1) MDD (major depressive disorder), recurrent episode, severe: (2) Post traumatic stress disorder (PTSD): (3) Generalized anxiety disorder with panic attacks: Plan 09/23/25: Restart Effexor 37.5mg daily Zofran increased to 8mg Q4hr PRN 09/22/2025: Start zolpidem 10 mg at bedtime 09/21/2025: Effexor d/c 09/20/2025: Continue medications and treatment plan 09/19/2025: Increase propranolol to 10 mg 3 times daily 09/18/2025: Decrease propranolol to 10 mg twice daily Start clonidine 0.1 mg at bedtime 09/17/25 Increase Cymbalta to 60 mg starting tomorrow decrease Effexor XR to 37.5 mg, discontinue after 3 days increase Lamictal to 50 mg daily 09/16/25 Start Protonix 40 mg daily 09/15/25: Starting tomorrow, Effexor 75 mg and Cymbalta 40 mg continue other medications without change, and encourage engagement in milieu 09/14/25: discontinue clonidine increase propranolol to 20 mg 3 times daily Cymbalta 20 mg x 1 today, then 30 mg nightly starting tomorrow decrease Effexor to 112.5 mg daily starting in the morning. Continue Latuda, Lamictal and mirtazapine without change for now. 09/13/25: Change propranolol to 20 mg twice daily in a.m. and 2 PM. Start Lamictal 25 mg daily Continue other medications without change. Encouraged engagement with staff and groups, especially if thoughts to harm self worsen. 09/12/25: Admit on a 201 Increase Latuda to 40 mg with dinner Continue Effexor XR 150 mg, mirtazapine 15 mg nightly. Continue propranolol 10 mg 3 times daily for anxiety, and consider increasing to 20 mg if blood pressures improve and remain stable. encourage p.o. hydration For now, continue clonidine 0.1 mg nightly. she previously tolerated taking both propranolol and clonidine during her last admission. Okay to continue Klonopin as needed, but I would not recommend increasing it Discussed the possibility of adding Topamax in the future, but avoiding now due to polypharmacy. It could have the additional benefit of migraine prophylaxis in addition to some mood stabilizing and anxiolytic properties Home medications for physical health indications (including insulin) were also continued 15-minute checks for suicide risk precaution Encouraged participation in the milieu, and group therapy Inventory Assets Strengths: Able to utilize safety plan. Gave her mother all her medications and past self-harm items upon discharge last time. Did not act on self-harm or suicidal thoughts prior to admission. Reached out for help when symptoms worsened. Self presented to the emergency room and admitted on a voluntary status Needs: medication adjustment, further coping skills development Suicide Risk Level Suicide Risk Level: Moderate (q15 min suicide checks) Suicide Risk Level Comments: acute risk is moderate given active suicidal ideation. She did have a plan prior to admission. Denies any plan or intent to harm herself now. she also reports feeling safe in the hospital and is able to ask for support if symptoms worsen. Risk Factors Assessment Male: No : Yes Do You Have Access To A Gun?: No Health Problems: Yes Mental Health Diagnoses: Yes Substance Use Disorders: No Previous Attempt: No Family History of Suicide: Yes Previous Psychiatric Hospitalization: Yes Hopelessness: Yes Protective Factors Assessment : No Responsible for Young Children: No Employed: Yes Stable Relationships: Yes Supportive Family: Yes Good Rapport with Provider: Yes Interval History Identifying Information Jennifer Roach is a 29-year-old female, with significant history of major depressive disorder recurrent, generalized anxiety disorder and PTSD. She is being readmitted for recurrence of suicidal ideation with a plan to overdose, which occurred rapidly after discharge from this unit earlier this month. Chief Complaint Anxiety Review of Systems Sleep Information Total Hours of Sleep: 7.75 Meal Information Percent Meal Consumed - Breakfast: 10 Percent Meal Consumed - Lunch: 40 Percent Meal Consumed - Dinner: 25 Subjective Subjective Patient was seen & assessed and interval progress reviewed with treatment team nursing and social work The patient c/o ongoing nausea and vomiting (2 episodes). Reports during menstruation she gets these symptoms. Denies any dizziness, SCHROEDER, tremors, ataxia, shock sensations. Reports sleeping well and feels Ambien is effective. Feels rested. Zofran is somewhat effective. He wrote a letter to his family to her father and feels it will be a better way to express her feelings without a "snap judgement." Discussed effect of OCPs on lamotrigine. Denies SI. Physical Exam Mental Examination Appearance: Well Groomed Eye Contact: Breaks Contact Motor Behavior: Unremarkable Speech: Normal and Soft Mood: Depressed Affect: Calm and Constricted Thought Process: Intact Hallucinations: None Insight: Fair Judgement: Fair Vital Signs (Past 24 Hours) Last Vital Signs Temp 36.6 C 09/23/25 06:23 Pulse 76 09/23/25 06:23 Resp 20 09/23/25 06:23 BP 111/71 09/23/25 06:23 Pulse Ox 96 09/23/25 06:23 O2 Del Method Room Air 09/23/25 06:23 A physical exam was performed in the ED by Zach Funes for the purposes of medical clearance. I accept that physical as correct and adequate for the purposes of the inpatient physical exam. Results & Data ([facility]) Laboratory Results Laboratory Results - last 24 hr 09/22/25 09/22/25 09/22/25 12: 17:16 21:07 POC Glucose 126 H 97 97 09/23/25 09/23/25 08:51 11:26 POC Glucose 110 H 108 H Current Inpatient Medications Current Inpatient Medications: Current Inpatient Medications Acetaminophen (Acetaminophen 325 Mg Tab) 650 mg PO Q4H PRN PRN Reason: Headache or Minor Fever Stop: 10/11/25 23:47 Al Hydrox/Mg Hydrox/Simethicone (Aluminum/Magnesium Susp 30 Ml Udc) 30 ml PO Q4H PRN PRN Reason: GI Upset Stop: 10/11/25 23:47 Last Admin: 09/23/25 11:23 Dose: 30 ml Albuterol (Albuterol Hfa 8 Gm Inhaler) 2 puffs INH QIDR PRN PRN Reason: Shortness Of Breath Or Wheezing Stop: 10/12/25 11:46 Bismuth Subsalicylate (Bismuth Subsalicylate 262 Mg Chew) 2 tab PO Q30M PRN PRN Reason: Loose Stool/Diarrhea Stop: 10/11/25 23:47 Last Admin: 09/16/25 10:46 Dose: 2 tab Cetirizine HCl (Cetirizine Hcl 10 Mg Tablet) 10 mg PO BID [facility] Stop: 10/12/25 13:09 Last Admin: 09/23/25 09:20 Dose: 10 mg Clonazepam (Clonazepam 1 Mg Tab) 1 mg PO BID PRN PRN Reason: Severe Anxiety Stop: 10/11/25 23:46 Last Admin: 09/22/25 10:40 Dose: 1 mg Clonidine HCl (Clonidine Hcl 0.1 Mg Tab) 0.1 mg PO HS [facility] Stop: 10/18/25 21:59 Last Admin: 09/22/25 21:10 Dose: 0.1 mg Dextrose (Dextrose 50% 50 Ml Syringe) 25 - 50 ml IV UD PRN; Protocol PRN Reason: Hypoglycemia Protocol Stop: 10/12/25 11:59 Duloxetine HCl (Duloxetine Hcl 60 Mg Cap) 60 mg PO [facility] Stop: 10/18/25 21:59 Last Admin: 09/22/25 21:09 Dose: 60 mg Dupilumab (Dupilumab 300 Mg/2 Ml Syr) 300 mg SQ Q14D@1600 CORIN[place]; Protocol Stop: 10/19/25 15:59 Last Admin: 09/19/25 15:40 Dose: 300 mg Glipizide (Glipizide 5 Mg Tab) 5 mg PO 0730 [facility] Stop: 10/22/25 07:29 Last Admin: 09/23/25 08:55 Dose: 5 mg Glucagon (Glucagon For Inj 1 Mg Vial) 1 mg SQ UD PRN; Protocol PRN Reason: Hypoglycemia Protocol Stop: 10/12/25 11:59 Glucose (Glucose 40% Gel 15 Gm Tube) 15 - 30 gm PO UD PRN; Protocol PRN Reason: Hypoglycemia Protocol Stop: 10/12/25 11:59 Glucose (Glucose 10 Tab/Tube) 4 - 8 tab PO UD PRN; Protocol PRN Reason: Hypoglycemia Protocol Stop: 10/12/25 11:59 Hydroxyzine HCl (Hydroxyzine Hcl 25 Mg Tab) 50 mg PO HSZ PRN PRN Reason: Insomnia Stop: 10/11/25 23:47 Hydroxyzine HCl (Hydroxyzine Hcl 25 Mg Tab) 25 mg PO Q4H PRN PRN Reason: Anxiety Stop: 10/11/25 23:47 Last Admin: 09/15/25 19:35 Dose: 25 mg Ibuprofen (Ibuprofen 200 Mg Tab) 400 mg PO Q6H PRN PRN Reason: Pain or Fever Stop: 10/19/25 16:08 Last Admin: 09/19/25 16:46 Dose: 400 mg Insulin Aspart (Insulin Aspart Per Unit Charge) 0 units SC ACHS [facility] Stop: 10/20/25 11:59 Last Admin: 09/23/25 09:19 Dose: Not Given Insulin Glargine (Lantus Per Unit Charge) 10 units SQ HS [facility] Stop: 10/21/25 21:59 Last Admin: 09/22/25 21:13 Dose: 10 units Lamotrigine (Lamotrigine 25 Mg Tab) [facility] Protocol Stop: 10/18/25 08:59 Last Admin: 09/23/25 09:20 Dose: 50 mg Lurasidone HCl (Lurasidone Hcl 20 Mg Tab) 40 mg PO DAILYBD [facility] Stop: 10/12/25 17:14 Last Admin: 09/22/25 17:20 Dose: 40 mg Magnesium Hydroxide (Magnesium Hydroxide Susp 30 Ml Udc) 30 ml PO DAILY PRN PRN Reason: Constipation Stop: 10/11/25 23:47 Mirtazapine (Mirtazapine Tab 15 Mg Tab) 15 mg PO HS [facility] Stop: 10/12/25 21:59 Last Admin: 09/22/25 21:09 Dose: 15 mg Miscellaneous (Carbohydrates For Hypoglycemia ) 15 - 30 gm PO UD PRN PRN Reason: Hypoglycemia Treatment Stop: 10/12/25 11:59 Last Admin: 09/19/25 20:42 Dose: 15 gm Miscellaneous (Remove Nicoderm Patch) 1 each N/A DAILY@2100 [facility] Stop: 10/19/25 20:59 Last Admin: 09/22/25 21:10 Dose: 1 each Miscellaneous Information (Pharmacy Glycemic Mgmt Consult) 1 each N/A UD PRN; Protocol PRN Reason: Consult Stop: 10/19/25 21:59 Montelukast Sodium (Montelukast Sodium 10 Mg Tablet) 10 mg PO HS [facility] Stop: 10/12/25 21:59 Last Admin: 09/22/25 21:10 Dose: 10 mg Nicotine (Nicotine 14 Mg/24 Hr Patch) [facility] Stop: 10/12/25 08:59 Last Admin: 09/23/25 09:20 Dose: 1 patch Nicotine Polacrilex (Nicotine Polacrilex 2 Mg Gum) 2 piece MT Q2H PRN PRN Reason: Nicotine Withdrawal Stop: 10/13/25 10:39 Ondansetron HCl (Ondansetron 4 Mg Od Tab) 4 mg PO Q4H PRN PRN Reason: Nausea And Vomiting Stop: 10/22/25 12:38 Last Admin: 09/23/25 08:55 Dose: 4 mg Oxybutynin Chloride (Oxybutynin Chloride 5 Mg Tab) 5 mg PO DAILY [facility] Stop: 10/12/25 11:44 Last Admin: 09/23/25 09:20 Dose: 5 mg Pantoprazole Sodium (Pantoprazole 40 Mg Tab) [facility] Stop: 10/16/25 15:29 Last Admin: 09/23/25 09:20 Dose: 40 mg Propranolol HCl (Propranolol Hcl 10 Mg Tab) 10 mg PO TID [facility] Stop: 10/19/25 13:59 Last Admin: 09/23/25 09:20 Dose: 10 mg Sodium Chloride (Sodium Chloride 0.65% Na Soln 45 Ml ([place])) 1 - 2 sprays NA PRN PRN PRN Reason: Nasal Dryness/Congestion Stop: 10/11/25 23:47 Venlafaxine HCl (Venlafaxine Hcl Xr 37.5 Mg Capxr) 37.5 mg PO [facility] Stop: 10/23/25 11:39 Vitamin D (Cholecalciferol 125 Mcg (5,000 Units) Tab) 125 mcg [facility] Stop: 10/12/25 11:59 Last Admin: 09/23/25 09:20 Dose: 125 mcg Zolpidem Tartrate (Zolpidem Tartrate 5 Mg Tab) 10 mg PO HS [facility] Stop: 10/22/25 21:59 Last Admin: 09/22/25 21:13 Dose: 10 mg Mental Health & Subst Abuse Tx Psychiatrist Name of Psychiatrist: [facility] Psychiatrist's Date Of Appointment With Psychiatric Provider: 10/04/25 Time of Appointment with Psychiatrist: 12PM Psychiatric Appointment Comment: In person. [address] [place] [address] Therapist Name of Therapist: [facility] - [facility] [place] Therapist's Date of Therapist Appointment: 09/27/25 Time of Therapist Appointment: 10AM Therapy Appointment Comment: New intake appt, virtual appt Post Discharge Appointments Primary Care Physician Name Of Family Doctor/PCP: Carmen Martinez - [facility] Other #1: Name of Aftercare Appointment: Family Services (counselor Cecelia) Phone Number of Aftercare Appointment: [phone] Date of Aftercare Appointment: 10/07/25 Time of Aftercare Appointment: 12PM Aftercare Appointment Comment: In person. [address] [place] [id number] #2: Name of Aftercare Appointment: [facility] - [address], [place] Phone Number of Aftercare Appointment: Aftercare Appointment Comment: Contact them directly to engage in their next in person IOP program Contact Information Discharge Discharge Address: [address] [place] [address] [address], [place] [id number] (1) MDD (major depressive disorder), recurrent episode, severe Psychotic features: without psychotic features Qualified Code(s): F33.2 - Major depressive disorder, recurrent severe without psychotic features
[2025-09-23] MEDS: ONDANSETRON 8MG OD TAB PO PRN (12:39)
[2025-09-23] MEDS: VENLAFAXINE HCL XR 37.5 MG CAPXR PO SCH (12:39)
[2025-09-24] MEDS ORDERED: VENLAFAXINE HCL XR 37.5 MG CAPXR PO SCH (09:00)
--- NOTE | 2025-09-24 09:38 | Discharge Summary ---
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 David Plt Count MPV Immature Gran % (Auto) Neut % (Auto) Lymph % (Auto) [place] % (Auto) Eos % (Auto) Baso % (Auto) Neut # (Auto) Lymph # (Auto) [place] # (Auto) Eos # (Auto) Baso # (Auto) Immature Gran # (Auto) Sodium Potassium Chloride Carbon Dioxide Anion Gap BUN Creatinine Est Cr Clr Drug Dosing eGFR BUN/Creatinine Ratio Glucose POC Glucose 131 H 126 H 97 Calcium Total Bilirubin AST ALT Alkaline Phosphatase Total Protein Albumin Globulin Albumin/Globulin Ratio TSH HCG, Qual Urine Color Urine Appearance Urine pH Ur Specific Royal Urine Protein Urine Glucose (UA) Urine Ketones Urine Blood Urine Nitrite Urine Bilirubin Urine Urobilinogen Ur Leukocyte Esterase Urine WBC (Auto) Urine RBC (Auto) U Hyaline Cast (Auto) U Epithel Cells (Auto) Urine Bacteria (Auto) Calcium Oxalate Crystal Urine Comment Salicylates Urine Opiates Screen Ur Methadone, Qual Urine Fentanyl Screen Acetaminophen Urine Barbiturates Ur Phencyclidine (PCP) U Amphetamin/Meth Scrn MDMA (Ecstasy) Screen U Benzodiazepines Scrn Ur Cocaine Metabolite U Marijuana (THC) Screen Ethyl Alcohol mg/dL SARS-CoV-2, RNA, NAAT 09/22/25 09/23/25 09/23/25 21:07 08:51 11:26 WBC RBC Hgb Hct MCV MCH MCHC RDW Std Deviation RDW Coeff of David Plt Count MPV Immature Gran % (Auto) Neut % (Auto) Lymph % (Auto) [place] % (Auto) Eos % (Auto) Baso % (Auto) Neut # (Auto) Lymph # (Auto) [place] # (Auto) Eos # (Auto) Baso # (Auto) Immature Gran # (Auto) Sodium Potassium Chloride Carbon Dioxide Anion Gap BUN Creatinine Est Cr Clr Drug Dosing eGFR BUN/Creatinine Ratio Glucose POC Glucose 97 110 H 108 H Calcium Total Bilirubin AST ALT Alkaline Phosphatase Total Protein Albumin Globulin Albumin/Globulin Ratio TSH HCG, Qual Urine Color Urine Appearance Urine pH Ur Specific Royal Urine Protein Urine Glucose (UA) Urine Ketones Urine Blood Urine Nitrite Urine Bilirubin Urine Urobilinogen Ur Leukocyte Esterase Urine WBC (Auto) Urine RBC (Auto) U Hyaline Cast (Auto) U Epithel Cells (Auto) Urine Bacteria (Auto) Calcium Oxalate Crystal Urine Comment Salicylates Urine Opiates Screen Ur Methadone, Qual Urine Fentanyl Screen Acetaminophen Urine Barbiturates Ur Phencyclidine (PCP) U Amphetamin/Meth Scrn MDMA (Ecstasy) Screen U Benzodiazepines Scrn Ur Cocaine Metabolite U Marijuana (THC) Screen Ethyl Alcohol mg/dL SARS-CoV-2, RNA, NAAT 09/23/25 09/23/25 09/24/25 17:08 21:44 08:32 WBC RBC Hgb Hct MCV MCH MCHC RDW Std Deviation RDW Coeff of David Plt Count MPV Immature Gran % (Auto) Neut % (Auto) Lymph % (Auto) [place] % (Auto) Eos % (Auto) Baso % (Auto) Neut # (Auto) Lymph # (Auto) [place] # (Auto) Eos # (Auto) Baso # (Auto) Immature Gran # (Auto) Sodium Potassium Chloride Carbon Dioxide Anion Gap BUN Creatinine Est Cr Clr Drug Dosing eGFR BUN/Creatinine Ratio Glucose POC Glucose 87 112 H 135 H Calcium Total Bilirubin AST ALT Alkaline Phosphatase Total Protein Albumin Globulin Albumin/Globulin Ratio TSH HCG, Qual Urine Color Urine Appearance Urine pH Ur Specific Royal Urine Protein Urine Glucose (UA) Urine Ketones Urine Blood Urine Nitrite Urine Bilirubin Urine Urobilinogen Ur Leukocyte Esterase Urine WBC (Auto) Urine RBC (Auto) U Hyaline Cast (Auto) U Epithel Cells (Auto) Urine Bacteria (Auto) Calcium Oxalate Crystal Urine Comment Salicylates Urine Opiates Screen Ur Methadone, Qual Urine Fentanyl Screen Acetaminophen Urine Barbiturates Ur Phencyclidine (PCP) U Amphetamin/Meth Scrn MDMA (Ecstasy) Screen U Benzodiazepines Scrn Ur Cocaine Metabolite U Marijuana (THC) Screen Ethyl Alcohol mg/dL SARS-CoV-2, RNA, NAAT Hospital Course (1) MDD (major depressive disorder), recurrent episode, severe: (2) Post traumatic stress disorder (PTSD): (3) Generalized anxiety disorder with panic attacks: Plan 09/23/25: Restart Effexor 37.5mg daily Zofran increased to 8mg Q4hr PRN 09/22/2025: Start zolpidem 10 mg at bedtime 09/21/2025: Effexor d/c 09/20/2025: Continue medications and treatment plan 09/19/2025: Increase propranolol to 10 mg 3 times daily 09/18/2025: Decrease propranolol to 10 mg twice daily Start clonidine 0.1 mg at bedtime 09/17/25 Increase Cymbalta to 60 mg starting tomorrow decrease Effexor XR to 37.5 mg, discontinue after 3 days increase Lamictal to 50 mg daily 09/16/25 Start Protonix 40 mg daily 09/15/25: Starting tomorrow, Effexor 75 mg and Cymbalta 40 mg continue other medications without change, and encourage engagement in milieu 09/14/25: discontinue clonidine increase propranolol to 20 mg 3 times daily Cymbalta 20 mg x 1 today, then 30 mg nightly starting tomorrow decrease Effexor to 112.5 mg daily starting in the morning. Continue Latuda, Lamictal and mirtazapine without change for now. 09/13/25: Change propranolol to 20 mg twice daily in a.m. and 2 PM. Start Lamictal 25 mg daily Continue other medications without change. Encouraged engagement with staff and groups, especially if thoughts to harm self worsen. 09/12/25: Admit on a 201 Increase Latuda to 40 mg with dinner Continue Effexor XR 150 mg, mirtazapine 15 mg nightly. Continue propranolol 10 mg 3 times daily for anxiety, and consider increasing to 20 mg if blood pressures improve and remain stable. encourage p.o. hydration For now, continue clonidine 0.1 mg nightly. she previously tolerated taking both propranolol and clonidine during her last admission. Okay to continue Klonopin as needed, but I would not recommend increasing it Discussed the possibility of adding Topamax in the future, but avoiding now due to polypharmacy. It could have the additional benefit of migraine prophylaxis in addition to some mood stabilizing and anxiolytic properties Home medications for physical health indications (including insulin) were also continued 15-minute checks for suicide risk precaution Encouraged participation in the milieu, and group therapy Mental Health & Subst Abuse Tx Psychiatrist Name of Psychiatrist: [facility] Psychiatrist's Date Of Appointment With Psychiatric Provider: 10/04/25 Time of Appointment with Psychiatrist: 12PM Psychiatric Appointment Comment: In person. [address] [facility] [id number] Therapist Name of Therapist: [facility] - Kim Maurice Therapist's Date of Therapist Appointment: 09/27/25 Time of Therapist Appointment: 10AM Therapy Appointment Comment: New intake appt, virtual appt Post Discharge Appointments Primary Care Physician Name Of Family Doctor/PCP: Carmen Martinez [facility] Other #1: Name of Aftercare Appointment: Family Services (counselor Cecelia) Phone Number of Aftercare Appointment: [phone] Date of Aftercare Appointment: 10/07/25 Time of Aftercare Appointment: 12PM Aftercare Appointment Comment: In person. [address] [id number] #2: Name of Aftercare Appointment: [facility] - [address] [facility], [facility] Phone Number of Aftercare Appointment: Aftercare Appointment Comment: Contact them directly to engage in their next in person IOP program Contact Information Discharge Discharge Address: [address] [place] [address] [address], [place] [id number] Discharge Plan Discharge Items Patient Disposition: Home - Self-Care Reason For Visit: MAJOR DEPRESSIVE DISORDER Discharge Diagnosis: MDD (major depressive disorder), recurrent episode, severe: Post traumatic stress disorder (PTSD): Generalized anxiety disorder with panic attacks: Condition on Discharge: Good Activity: Resume your previous activity Non-emergency contact: Primary Care Provider, Psychiatrist and Therapist Call non-emergency contact if: you have any medication questions and your symptoms worsen Follow-up/Referrals: Carmen Martinez [Primary Care Provider] - Diet: Regular Addtl Attending Provider Instructions: Continue Lurasidone 40mg daily Continue Mirtazapine 15mg at bedtime Continue Lamotrigine 100mg daily Continue Duloxetine 60mg daily Continue Effexor 37.5mg daily for 2 weeks then stop. If nausea or vomiting persists, discuss with outpatient psychiatrist For anxiety/sleep: Once depression resolves and anxiety improves, discuss with outpatient psychiatrist about d/c or dose reduction of these medications Continue Clonidine 0.1mg HS Continue Propranolol 10mg three times daily Continue Zolpidem 10mg at bedtime Continue Clonazepam 0.5mg twice daily Engage in cognitive behavioral therapy and dialectical behavioral therapy at the intensive outpatient program. Focus on emotional processing, expressing yourself to alleviate anxiety and self harm thoughts. Promote positive coping skills and put them into practice. Pending Studies at Discharge: No Stand-Alone Forms: [facility] One[facility], Smoking Cessation Medications and DC Order Prescriptions: New clonidine HCl 0.1 mg Tablet 0.1 mg PO HS Qty: 30 0RF nicotine 7 mg/24 hr Patch 24 Hour 1 patch transdermal QAM Qty: 30 0RF clonazepam 0.5 mg tablet 0.5 mg PO BID Qty: 60 0RF duloxetine 60 mg Capsule,Delayed Release(Dr/Ec) 60 mg PO HS Qty: 30 0RF lurasidone 40 mg tablet 40 mg PO DAILYBD Qty: 30 0RF lamotrigine 100 mg tablet 100 mg PO QAM Qty: 30 0RF mirtazapine 15 mg Tablet 15 mg PO HS Qty: 30 0RF zolpidem 10 mg tablet 10 mg PO HS Qty: 30 0RF venlafaxine 37.5 mg Capsule,Extended Release 24hr See Rx Instructions .ROUTE .COMPLEX Qty: 14 0RF Rx Instructions: 37.5 mg orally (1 tablet) daily for 2 weeks, then stop medication Continued oxybutynin chloride 5 mg Tablet Extended Release 24hr 5 mg PO QAM montelukast [Singulair] 10 mg Tablet 10 mg PO HS ondansetron HCl 8 mg Tablet 8 mg PO Q8H PRN (Reason: nausea) cetirizine 10 mg Tablet 10 mg PO BID Qty: 1 0RF propranolol 10 mg Tablet 10 mg PO TID 30 Days Qty: 90 0RF Dupixent Syringe 300 mg/2 mL syringe 300 mg SUBCUT .EVERY 2 WEEKS cholecalciferol (vitamin D3) [Vitamin D3] 125 mcg (5,000 unit) Tablet 125 mcg PO QAM dexlansoprazole 60 mg capsule,biphase delayed releas 60 mg PO QAM albuterol sulfate 90 mcg/actuation Hfa Aerosol Inhaler 2 puff INHALATION Q4 PRN (Reason: Shortness Of Breath Or Wheezing) glipizide 5 mg tablet 5 mg PO QDD Rx Instructions: take 1/2 hour before dinner iron 159 mg (45 mg iron) Tablet Extended Release 159 mg PO HS albuterol sulfate 2.5 mg /3 mL (0.083 %) Solution For Nebulization 2.5 mg INHALATION Q4H PRN (Reason: Shortness Of Breath Or Wheezing) polyethylene glycol 3350 [Miralax] 17 gram/dose Powder 17 g PO BID PRN (Reason: Constipation) Changed insulin glargine [Basaglar KwikPen U-100 Insulin] 100 unit/mL (3 mL) insulin pen 10 unit SUBCUT HS Qty: 0 0RF Discontinued clonazepam 1 mg Tablet 1 mg PO BID PRN (Reason: Anxiety) clonidine HCl 0.1 mg Tablet 0.1 mg PO HS 30 Days Qty: 30 0RF venlafaxine 150 mg Capsule,Extended Release 24hr 150 mg PO QAM 30 Days Qty: 30 0RF mirtazapine 15 mg Tablet 15 mg PO HS 30 Days Qty: 30 0RF lurasidone 20 mg tablet 20 mg PO QDD Discharge Orders: Discharge Order (Routine); Ordered 09/24/25 Ordered By: José Miguel Fisher Admission Data Admit Date/Time: 09/11/25 22:58 Attending Provider: José Miguel Fisher Admit Provider: Jaylene Castellano Primary Care Provider: Carmen Martinez Other Providers: Jaylene Castellano Other Interventions: Discharge Summary Assessment (RN) Last Done: 09/24/25 08:53 C[place] [address] D/C day mgmt > 30 min Patient Type Established History Detailed Exam Detailed Medical Decision Making High Complexity Diagnoses MDD (major depressive disorder), recurrent episode, severe F33.2 Psychotic features: without psychotic features Post traumatic stress disorder (PTSD) F43.10 Generalized anxiety disorder with panic attacks F41.1; F41.0
--- NOTE | 2025-09-24 10:57 | Pharmacy Report ---
Pharmacy Glycemic Short Note 2 - Date of Service September 24, 2025 - Glycemic Short BSG Results (Last 24 hours): 09/23/25 09/23/25 09/23/25 11:26 17:08 21:44 POC Glucose 108 H 87 112 H 09/24/25 08:32 POC Glucose 135 H OUTPATIENT ANTIDIABETIC REGIMEN: * Basaglar 38 units at HS * glipizide 5mg po daily with dinner HbA1c: 8.7% on 08/26/25 ASSESSMENT: 09/24: * Although she was receiving much less basal insulin then she uses at home, all BSGs were below goal yesterday. She did not require any bolus insulin. * Fasting BSG was in goal range this morning. Will decrease basal insulin by 20% and will continue bolus insulin regimen without change. 09/21: * Jennifer received a total of 17 units of insulin yesterday (15 units were basal and 2 units were bolus). BSGs were [phone]/dL * Fasting BSG was 130mg/dL. Will reduce HS dose of Lantus and shift glipizide to be given with breakfast instead of with dinner as HS BSGs have been below goal. * Will loosen CF of bolus insulin as well. 09/20: * Jennifer is a 29 year of female who was admitted for recurrence of SI. Pharmacy was consulted last evening for glycemic management. * BSG at HS last evening was 63mg/dL. She was previously ordered 32 units of Lantus at HS, but that was decreased by ~50% last evening. * Fasting BSG was 112mg/dL this morning. A conservative bolus insulin regimen was started utilizing only the correction factor (no carb coverage) incase her BSG starts to rise above goal. * She continues on her home dose of glipizide as well. PLAN FOR INPATIENT GLYCEMIC CONTROL: * Hold outpatient diabetes medications * Basal insulin * Lantus 8 units SQ at HS * Bolus insulin * NovoLog per scale ACHS or Q6hrs while NPO * Goal Range: Low 120 mg/dL - High 150 mg/dL * Correction Factor: 40 mg/dL/unit * Nutritional / Prandial insulin per carb ratio: NONE
[2025-09-24] MEDS ORDERED: LANTUS PER UNIT CHARGE SQ SCH (22:00)
== END 2025-09-24 15:27 | disposition home or self-care (01) | DRG 885 ==
LOC: ED 19:49 → 3S 22:58 → SUATTDRO 22:58 → 3S 23:21